=== PATIENT | male | born 1940 | race Caucasian/White ===

== ENCOUNTER 2021-11-16 10:11 | Inpatient (IN) ==
[2021-11-16] MEDS ORDERED: SODIUM CHLORIDE 0.9% 1000ML 1,000 ML IV ONE ×3 (10:29→12:36)
[2021-11-16] MEDS ORDERED: CEFEPIME 2,000 MG/20 ML VIAL IV STA (10:29)
[2021-11-16] MEDS ORDERED: SODIUM CHLORIDE 0.9% 500 ML IV ONE (10:29)
[2021-11-16] MEDS ORDERED: ACETAMINOPHEN 500 MG TAB PO STA (10:30)
--- NOTE | 2021-11-16 10:31 | Emergency Department Note ---
Impression & Plan Septic shock, Elevated LFTs, Acute renal failure, Pancytopenia, Atrial fibrillation with rapid ventricular response ED Provider Note Name: GAY BALDWIN Age: 81 Sex: M Arrives Via: Walk-In Informant: Patient and daughter ED Provider: Jose Newsome MD Chief Complaint: Weakness Impression: As per impressions above Medical Decision Making: Very pleasant 81-year-old gentleman with a history of radiation proctitis and previous UTIs arrives for evaluation of acute worsening weakness in the setting of increased urinary burning and frequency the last few days. Patient has been quite tired and his daughter this morning checked his blood pressure noting was in the 80s. Brought to the ER for further evaluation. On evaluation patient was hypotensive, tachycardic and febrile. He is in new onset A. fib with RVR and heart rate going up to the 160s with even sitting up. Patient is somewhat dehydrated appearing though otherwise his exam is actually really only remarkable for the tachycardia. He has no abdominal tenderness to palpation has clear lungs and has no evidence of meningitis. There is no evidence of cellulitis on examination. Given the high concern for sepsis and likely septic shock given the hypotension he immediately was ordered severe sepsis work-up including 2 IVs, 30 mL/kg IV fluid bolus and empiric cefepime for antibiotic coverage. Patient's blood pressure did respond quickly to the fluid resuscitation and at 12 PM following the fluid resuscitation initially his blood pressure looks good he feels much better and while his heart rate is still quite elevated at this A. fib RVR and I am not convinced that that is due to his sepsis is much his new onset A. fib RVR. Labs revealing acute renal insufficiency, pancytopenia and elevated LFTs. Interestingly though his urine is not significantly concerning for UTI. After discussing this with him a CT of the abdomen pelvis will be obtained without IV contrast. Due to patient's severe illness I do think it was reasonable to get medicine involved at this time and hospitalist was consulted for further management. Unfortunately just after discussing with hospitalist patient's blood pressure dropped precipitously and his heart rate went up significantly. On evaluation though he is not feeling that unwell. I feel he likely fluid resuscitated quite significantly though in the setting of acute hypotension further fluids were started while pressors obtained. Given the A. fib RVR I am somewhat worried that his A. fib is further causing issue with his hypotension. Thus after discussing with him and his daughter as well as making the hospitalist aware we will proceed with giving a dose of Lopressor to try and get his rate under control. At the same time I asked the critical care team to get involved as well. I will note the patient's blood pressure dropped a bit more after Lopressor and while fluids are started but responded pretty rapidly to his Levophed as it was titrated up. Blood pressure in the low 100s, heart rate around 100-110s in A. fib, and patient feeling vastly improved on repeat evaluation around 1:00. By this time patient is feeling much better and CT is revealing a stone in the common bile duct and no clear evidence of severe cholecystitis or other concerning findings. Critical care evaluated the patient did add on some tickborne illness labs which returned unremarkable. Patient's lactate did trend down some though not as much would be hoped for. He will be going to the ICU for further management Initial post 30/kg IV fluid evaluation was done at 12 PM by me. Patient does appear much better hydrated and his blood pressure has improved. However at 12:35pm patient blood pressure started to drop. Fluids, Levophed, Lopressor ordered for aggressive management in this quite complex patient. Hospitalist was further made aware and at this point critical care was made aware as well Prior Medical Record and Triage/Nursing Notes reviewed by Me Additional history obtained from chart and daughter Differentials:Infection, dehydration, metabolic abnormality, hypo/hyperglycemia, electrolyte disturbance, anemia, hypoxia, cardiac sources, intracerebral event, toxicologic, neurologic, as well as other pathologies. Vital Signs: reviewed and remarkable for no significant abnormalities Interventions: Normal saline bolus 2.5 L IV initially, cefepime 2 g IV, 1 L IV fluid bolus, Levophed drip, Lopressor 5 mg IV, Flagyl IV Labs:Reviewed and remarkable for acute renal insufficiency, lactic acidosis, pancytopenia Imagin view chest x-ray no acute findings as per radiology. CT of the abdomen pelvis questionable cholecystitis with a stone in the common bile duct as per radiology EKG:Per My Interpretation: Indication sepsis: Sinus tach at 126, right bundle branch block, no previous EKGs comparison. There is no ischemia. Cardiac/Tele Monitoring: Cardiac Monitoring: An Order was placed for continuous cardiac monitoring. The monitor shows a rate of 150 with a atrial fibrillation with RVR rhythm. Consults:Dr Martinez [facility] Hospitalist, Dr Pearce [facility] Plan: Disposition:Hospitalization. Condition: Critical History of Present Illness:81-year-old gentleman arrives for evaluation of weakness. Patient arrives with his daughter who is an RN and brought patient in to ER for evaluation. Patient with worsening weakness and fatigue over the last few days. He states he has no energy. He has had increased urinary burning and frequency. He has a history of prostate cancer and previous urinary tract infections. He notes urgency, frequency and minimal urination. Associated with fevers, chills, weakness. He took Tylenol last night with improvement of his fever. He states he is so weak he cannot sit up today. His daughter checked his blood pressure at home and it was in the 80s. He had no medications prior to arrival. Any exertion makes worse. Rest makes better. He had no falls, trauma, injuries. He denies any chest pain, shortness of breath, cough, runny nose, sore throat, congestion, headache, neck pain, back pain, abdominal pain, flank pain, leg swelling, rashes or any other signs or symptoms. He denies any antibiotic use since June. ROS: See above HPI for pertinent positives & negatives. A total of 10 systems reviewed and were otherwise negative. Past Medical History:Prostate Cancer, Recurrent UTI Past Surgical History:Prostate surgery Family History:See Below Social History:See Below Home Medications:See Below Allergies:merepridine Vitals:Blood Pressure: 82/53, Pulse 114, RR 18, T 38.3C, O2 97% on RA Physical Exam: GENERAL: Patient is ill appearing and in moderate distress. EYES: No scleral icterus, unremarkable pupils. ENT: Mucous membranes moist, no nasal congestion. NECK: No masses appreciated, nomeningismus, trachea is midline. RESPIRATORY: No dyspnea. Clear to auscultation and equal bilaterally. No wheeze, no rhonchi. CARDIOVASCULAR: Tachy/irregular.No murmurs, rubs, gallops appreciated. GASTROINTESTINAL: Abdomen soft, non-tender, no peritonitis.Bowel sounds positive.No masses appreciated. BACK: No midline tenderness, no CVA tenderness EXTREMITIES: Normal motion all extremities, no cyanosis, no edema. NEUROLOGIC: Alert and oriented, no acute motor or sensory deficits, no focal weakness, cranial nerves grossly intact. SKIN: No rash, no jaundice, no diaphoresis. PSYCH: Appropriate GCS: 15 ED Course: Times/Reassessments: Many repeat evaluations of patient throughout his stay in [facility] ER and active management and consultations throughout Critical Care: I have personally spent 85 minutes of critical care time in the direct management of this patient. Critically ill septic shock patient with new onset A. fib RVR and extensive resuscitation and management. This was a life/limb threatening event. This 85 minutes is in excess of all separately billable procedures. [Scribe Attestation] [Scribe Name] Jose Newsome MD Past Med/Surg History Medical History CAD (coronary artery disease) Calculus of ureter Dermatitis Dyslipidemia Glaucoma Bilateral Eyes Hypertension Ischemic heart disease Kidney disease Chronic Stage 3 Polymyalgia rheumatica Prostate CA Diagnosed 06/08/18 - Jeb 3+3, 3+4 Surgical History History of coronary artery bypass graft x 3 2013 History of kidney surgery 1994 - Ureteral Stone Surgery History of prostate biopsy 06/08/18 Status post repair of hydrocele Drainage as a youth Family History Mother , Passed age 87 of CVA Breast cancer, Onset Age: 50 Father , Passed age 64 of Lung Disease No problems noted. Brother No problems noted. Sister , Passed age 58 of breast cancer/head and neck cancer No problems noted. Sister No problems noted. Sister No problems noted. Daughter No problems noted. Social History Smoking Status: Never smoker Tobacco Type: Cigarettes Hx Alcohol Use: Yes Alcohol type: beer Alcohol Intake Frequency: 2-4 x/Month Hx Substance Use: No Preferred Language: German Communication Ability: Effective Visual Impairment: Limited Hearing Ability: Normal Ip/Mosaic Technician Required: No Beliefs That Will Affect Care: None marital status: Current Living Situation: Spouse current occupational status: retired current occupation: Retired [employer] Feels Safe at Home: Yes caffeine: Yes (2 cups of coffee/day ) during the past year weight has: remained stable Assistive Devices: Glasses Allergies Allergies Allergy/AdvReac Type Severity Reaction Status Date / Time meperidine AdvReac Mild PASS OUT Verified 06/16/21 09:57 Home Meds Home Medications Medication Instructions Recorded Confirmed bimatoprost 0.01 % eye drops 1 drops OP QPM 07/08/18 11/16/21 (Lumigan) lisinopril 10 mg tablet 10 mg PO PM 07/08/18 11/16/21 nitroglycerin 0.4 mg sublingual 0.4 mg SL Q5M PRN 07/08/18 11/16/21 tablet clobetasol 0.05 % topical cream 1 appln TOP BID PRN 04/19/19 11/16/21 docusate sodium 100 mg capsule 100 mg PO DAILY PRN 04/25/19 11/16/21 (Colace) famotidine 40 mg tablet (Pepcid) 40 mg PO QAM 11/15/20 11/16/21 ferrous sulfate 325 mg (65 mg 325 mg PO QAM 11/15/20 11/16/21 iron) tablet (FeroSul) turmeric root extract 500 mg 500 mg PO BID 11/15/20 11/16/21 capsule acetaminophen 500 mg tablet 1,000 mg PO Q6H PRN 06/16/21 11/16/21 (Tylenol Extra Strength) atorvastatin 40 mg tablet 40 mg PO PM 06/16/21 11/16/21 metoprolol tartrate 25 mg tablet 25 mg PO BID 06/16/21 11/16/21 silodosin 8 mg capsule 8 mg PO DAILY 11/16/21 11/16/21 Results & Data (ED) Vital Signs Vital Signs - 24 hr 11/16/21 10:15 11/16/21 11:01 11/16/21 11:30 Temperature 38.3 C H Temperature Source Oral Pulse Rate 114 H Pulse Rate [Right Finger] 124 H Pulse Rate from SpO2 Sensor Pulse Rhythm [Right Finger] Irregular Pulse Strength [Right Finger] Normal Respiratory Rate 18 19 Respiratory Effort / Characteristics Non-Labored Spontaneous Non-Labored Spontaneous Respiratory Depth Normal Normal Respiratory Pattern Regular Regular Blood Pressure 82/53 L 96/66 L Blood Pressure [Right Arm] 100/62 Blood Pressure Mean 62 76 Blood Pressure Mean [Right Arm] 74 Blood Pressure Position Sitting Blood Pressure Position [Right Arm] Lying Pulse Oximetry 97 98 Oxygen Delivery Method Room Air Room Air Sepsis Recent Fever Within 48 Hours Yes Sepsis New/Unexplained Change in Mental Status No Sepsis Action Taken by Nursing Physician Notified 11/16/21 11:40 11/16/21 11:50 11/16/21 12:00 Temperature Temperature Source Pulse Rate 128 H 141 H 180 H Pulse Rate [Right Finger] Pulse Rate from SpO2 Sensor Pulse Rhythm [Right Finger] Pulse Strength [Right Finger] Respiratory Rate 27 H 23 30 H Respiratory Effort / Characteristics Respiratory Depth Respiratory Pattern Blood Pressure 115/65 Blood Pressure [Right Arm] Blood Pressure Mean 81 Blood Pressure Mean [Right Arm] Blood Pressure Position Blood Pressure Position [Right Arm] Pulse Oximetry Oxygen Delivery Method Sepsis Recent Fever Within 48 Hours Sepsis New/Unexplained Change in Mental Status Sepsis Action Taken by Nursing 11/16/21 12:04 11/16/21 12:25 11/16/21 12:28 Temperature Temperature Source Pulse Rate 156 H 147 H Pulse Rate [Right Finger] 142 H Pulse Rate from SpO2 Sensor 127 H Pulse Rhythm [Right Finger] Pulse Strength [Right Finger] Normal Respiratory Rate 19 23 29 H Respiratory Effort / Characteristics Non-Labored Spontaneous Respiratory Depth Normal Respiratory Pattern Blood Pressure 84/59 L 84/43 L Blood Pressure [Right Arm] 115/65 Blood Pressure Mean 56 Blood Pressure Mean [Right Arm] 81 Blood Pressure Position Blood Pressure Position [Right Arm] Lying Pulse Oximetry 98 94 Oxygen Delivery Method Room Air Sepsis Recent Fever Within 48 Hours Sepsis New/Unexplained Change in Mental Status Sepsis Action Taken by Nursing 11/16/21 12:30 11/16/21 12:32 11/16/21 12:40 Temperature Temperature Source Pulse Rate 128 H 126 H 110 H Pulse Rate [Right Finger] Pulse Rate from SpO2 Sensor 96 H 123 H Pulse Rhythm [Right Finger] Pulse Strength [Right Finger] Respiratory Rate 28 H 26 H 28 H Respiratory Effort / Characteristics Respiratory Depth Respiratory Pattern Blood Pressure 79/42 L 77/50 L Blood Pressure [Right Arm] Blood Pressure Mean 54 59 Blood Pressure Mean [Right Arm] Blood Pressure Position Blood Pressure Position [Right Arm] Pulse Oximetry 95 92 Oxygen Delivery Method Sepsis Recent Fever Within 48 Hours Sepsis New/Unexplained Change in Mental Status Sepsis Action Taken by Nursing 11/16/21 12:42 11/16/21 12:45 11/16/21 12:46 Temperature Temperature Source Pulse Rate 126 H 110 H Pulse Rate [Right Finger] 118 H Pulse Rate from SpO2 Sensor 105 H 90 Pulse Rhythm [Right Finger] Irregular Pulse Strength [Right Finger] Normal Respiratory Rate 28 H 28 H 21 Respiratory Effort / Characteristics Non-Labored Spontaneous Respiratory Depth Normal Respiratory Pattern Regular Blood Pressure 60/43 L 68/35 L Blood Pressure [Right Arm] 131/66 Blood Pressure Mean 48 46 Blood Pressure Mean [Right Arm] 87 Blood Pressure Position Blood Pressure Position [Right Arm] Lying Pulse Oximetry 93 93 96 Oxygen Delivery Method Room Air Sepsis Recent Fever Within 48 Hours Sepsis New/Unexplained Change in Mental Status Sepsis Action Taken by Nursing 11/16/21 12:50 11/16/21 12:56 11/16/21 13:00 Temperature Temperature Source Pulse Rate 113 H 104 H 116 H Pulse Rate [Right Finger] Pulse Rate from SpO2 Sensor 128 H 100 H 130 H Pulse Rhythm [Right Finger] Pulse Strength [Right Finger] Respiratory Rate 25 H 22 17 Respiratory Effort / Characteristics Respiratory Depth Respiratory Pattern Blood Pressure 91/72 L 101/74 Blood Pressure [Right Arm] Blood Pressure Mean 78 83 Blood Pressure Mean [Right Arm] Blood Pressure Position Blood Pressure Position [Right Arm] Pulse Oximetry 97 96 96 Oxygen Delivery Method Sepsis Recent Fever Within 48 Hours Sepsis New/Unexplained Change in Mental Status Sepsis Action Taken by Nursing 11/16/21 13:02 11/16/21 13:05 Temperature Temperature Source Pulse Rate 118 H Pulse Rate [Right Finger] 113 H Pulse Rate from SpO2 Sensor 124 H Pulse Rhythm [Right Finger] Pulse Strength [Right Finger] Respiratory Rate 20 17 Respiratory Effort / Characteristics Respiratory Depth Respiratory Pattern Blood Pressure 103/60 Blood Pressure [Right Arm] 98/63 L Blood Pressure Mean 74 Blood Pressure Mean [Right Arm] 74 Blood Pressure Position Blood Pressure Position [Right Arm] Pulse Oximetry 96 96 Oxygen Delivery Method Room Air Sepsis Recent Fever Within 48 Hours Sepsis New/Unexplained Change in Mental Status Sepsis Action Taken by Nursing Laboratory Data Result diagrams: 11/16/21 10:40 11/16/21 18:22 Lab Results 11/16/21 11/16/21 11/16/21 Range/Units 10:35 10:40 10:40 WBC 2.73 L (4.8-10.8) K/uL RBC 3.68 L (4.7-6.1) M/uL Hgb 11.2 L (14.0-18.0) g/dL Hct 32.7 L (42-52) % MCV 88.9 (80-100) fL MCH 30.4 (25-34) pg MCHC 34.3 (32-36) g/dL RDW Std Deviation 45.3 (36.4-46.3) fL RDW Coeff of Miquel 13.7 (11.5-14.5) % Plt Count 83 L (130-400) K/uL MPV 12.0 H (7.4-10.4) fL Immature Gran % (Auto) 0.4 % Neut % (Auto) 79.1 % Lymph % (Auto) 17.2 % [place] % (Auto) 2.9 % Eos % (Auto) 0.0 % Baso % (Auto) 0.4 % Neut # (Auto) 2.16 (1.4-6.5) K/uL Lymph # (Auto) 0.47 L (1.2-3.4) K/uL [place] # (Auto) 0.08 L (0.11-0.59) K/uL Eos # (Auto) 0.00 (0-0.5) K/uL Baso # (Auto) 0.01 (0-0.2) K/uL Immature Gran # (Auto) 0.01 (0.00-0.02) K/uL Platelet Estimate Decreased L (Normal) PT (9.0-12.0) Seconds INR (0.9-1.1) Sodium (136-145) mmol/L Potassium (3.5-5.1) mmol/L Chloride (98-107) mmol/L Carbon Dioxide (21-32) mmol/L Anion Gap (3-11) BUN (6-23) mg/dl Creatinine (0.6-1.4) mg/dl Est Cr Clr Drug Dosing ml/min Est GFR ( Amer) ml/min Est GFR (Non-Af Amer) ml/min BUN/Creatinine Ratio (10-20) Glucose (70-99(Fasting)) mg/dl Lactate 2.5 H* (0.4-2.0) mmol/L Calcium (8.5-10.1) mg/dl Magnesium (1.7-2.4) mg/dl Total Bilirubin (0.2-1.0) mg/dl Direct Bilirubin (0-0.2) mg/dl AST (13-39) U/L ALT (7-52) U/L Alkaline Phosphatase (34-104) U/L Troponin I High Sens (0-20) pg/ml Total Protein (6.0-8.3) gm/dl Albumin (3.4-5.0) gm/dl Lipase (11-82) U/L Procalcitonin (0-0.5) ng/ml Urine Color Dark Yellow Urine Appearance Cloudy A (Clear) Urine pH 5.0 (4.5-7.5) Ur Specific [place] 1.017 (1.000-1.030) Urine Protein 1+ H (Negative) Urine Glucose (UA) Negative (Negative) Urine Ketones Trace H (Negative) Urine Blood Negative (Negative) Urine Nitrite Negative (Negative) Urine Bilirubin Negative (Negative) Urine Urobilinogen Negative (Negative) Ur Leukocyte Esterase Negative (Negative) Urine WBC (Auto) 1-5 (0-5) /hpf Urine RBC (Auto) 0-4 (0-4) /hpf U Hyaline Cast (Auto) 1-5 (0-5) /lpf U Epithel Cells (Auto) 5-10 H (0-5) /lpf Urine Bacteria (Auto) Negative (Negative) Amorphous Sediment Present A (None Prsent) Urine Yeast Not Reportable Anaplasma Smear See Comment Babesia Smear See Comment Lyme Disease IgG Ab (Negative) Lyme Disease IgM Ab (Negative) SARS-CoV-2, RNA, NAAT (NEGATIVE) 11/16/21 11/16/21 11/16/21 Range/Units 10:40 10:40 10:40 WBC (4.8-10.8) K/uL RBC (4.7-6.1) M/uL Hgb (14.0-18.0) g/dL Hct (42-52) % MCV (80-100) fL MCH (25-34) pg MCHC (32-36) g/dL RDW Std Deviation (36.4-46.3) fL RDW Coeff of Miquel (11.5-14.5) % Plt Count (130-400) K/uL MPV (7.4-10.4) fL Immature Gran % (Auto) % Neut % (Auto) % Lymph % (Auto) % [place] % (Auto) % Eos % (Auto) % Baso % (Auto) % Neut # (Auto) (1.4-6.5) K/uL Lymph # (Auto) (1.2-3.4) K/uL [place] # (Auto) (0.11-0.59) K/uL Eos # (Auto) (0-0.5) K/uL Baso # (Auto) (0-0.2) K/uL Immature Gran # (Auto) (0.00-0.02) K/uL Platelet Estimate (Normal) PT 11.2 (9.0-12.0) Seconds INR 1.1 (0.9-1.1) Sodium 127 L (136-145) mmol/L Potassium 3.8 (3.5-5.1) mmol/L Chloride 96 L (98-107) mmol/L Carbon Dioxide 19 L (21-32) mmol/L Anion Gap 12 H (3-11) BUN 58 H (6-23) mg/dl Creatinine 3.62 H (0.6-1.4) mg/dl Est Cr Clr Drug Dosing 16.5 ml/min Est GFR ( Amer) 17.4 ml/min Est GFR (Non-Af Amer) 15.0 ml/min BUN/Creatinine Ratio 16.0 (10-20) Glucose 169 H (70-99(Fasting)) mg/dl Lactate (0.4-2.0) mmol/L Calcium 8.9 (8.5-10.1) mg/dl Magnesium 2.0 (1.7-2.4) mg/dl Total Bilirubin 1.4 H (0.2-1.0) mg/dl Direct Bilirubin 0.5 H (0-0.2) mg/dl AST 132 H (13-39) U/L ALT 75 H (7-52) U/L Alkaline Phosphatase 73 (34-104) U/L Troponin I High Sens 31.2 H (0-20) pg/ml Total Protein 7.1 (6.0-8.3) gm/dl Albumin 4.1 (3.4-5.0) gm/dl Lipase 145 H (11-82) U/L Procalcitonin 2.36 H (0-0.5) ng/ml Urine Color Urine Appearance (Clear) Urine pH (4.5-7.5) Ur Specific [place] (1.000-1.030) Urine Protein (Negative) Urine Glucose (UA) (Negative) Urine Ketones (Negative) Urine Blood (Negative) Urine Nitrite (Negative) Urine Bilirubin (Negative) Urine Urobilinogen (Negative) Ur Leukocyte Esterase (Negative) Urine WBC (Auto) (0-5) /hpf Urine RBC (Auto) (0-4) /hpf U Hyaline Cast (Auto) (0-5) /lpf U Epithel Cells (Auto) (0-5) /lpf Urine Bacteria (Auto) (Negative) Amorphous Sediment (None Prsent) Urine Yeast Anaplasma Smear Babesia Smear Lyme Disease IgG Ab (Negative) Lyme Disease IgM Ab (Negative) SARS-CoV-2, RNA, NAAT (NEGATIVE) 11/16/21 11/16/21 11/16/21 Range/Units 10:40 10:45 12:41 WBC (4.8-10.8) K/uL RBC (4.7-6.1) M/uL Hgb (14.0-18.0) g/dL Hct (42-52) % MCV (80-100) fL MCH (25-34) pg MCHC (32-36) g/dL RDW Std Deviation (36.4-46.3) fL RDW Coeff of Miquel (11.5-14.5) % Plt Count (130-400) K/uL MPV (7.4-10.4) fL Immature Gran % (Auto) % Neut % (Auto) % Lymph % (Auto) % [place] % (Auto) % Eos % (Auto) % Baso % (Auto) % Neut # (Auto) (1.4-6.5) K/uL Lymph # (Auto) (1.2-3.4) K/uL [place] # (Auto) (0.11-0.59) K/uL Eos # (Auto) (0-0.5) K/uL Baso # (Auto) (0-0.2) K/uL Immature Gran # (Auto) (0.00-0.02) K/uL Platelet Estimate (Normal) PT (9.0-12.0) Seconds INR (0.9-1.1) Sodium (136-145) mmol/L Potassium (3.5-5.1) mmol/L Chloride (98-107) mmol/L Carbon Dioxide (21-32) mmol/L Anion Gap (3-11) BUN (6-23) mg/dl Creatinine (0.6-1.4) mg/dl Est Cr Clr Drug Dosing ml/min Est GFR ( Amer) ml/min Est GFR (Non-Af Amer) ml/min BUN/Creatinine Ratio (10-20) Glucose (70-99(Fasting)) mg/dl Lactate 2.1 H* (0.4-2.0) mmol/L Calcium (8.5-10.1) mg/dl Magnesium (1.7-2.4) mg/dl Total Bilirubin (0.2-1.0) mg/dl Direct Bilirubin (0-0.2) mg/dl AST (13-39) U/L ALT (7-52) U/L Alkaline Phosphatase (34-104) U/L Troponin I High Sens (0-20) pg/ml Total Protein (6.0-8.3) gm/dl Albumin (3.4-5.0) gm/dl Lipase (11-82) U/L Procalcitonin (0-0.5) ng/ml Urine Color Urine Appearance (Clear) Urine pH (4.5-7.5) Ur Specific [place] (1.000-1.030) Urine Protein (Negative) Urine Glucose (UA) (Negative) Urine Ketones (Negative) Urine Blood (Negative) Urine Nitrite (Negative) Urine Bilirubin (Negative) Urine Urobilinogen (Negative) Ur Leukocyte Esterase (Negative) Urine WBC (Auto) (0-5) /hpf Urine RBC (Auto) (0-4) /hpf U Hyaline Cast (Auto) (0-5) /lpf U Epithel Cells (Auto) (0-5) /lpf Urine Bacteria (Auto) (Negative) Amorphous Sediment (None Prsent) Urine Yeast Anaplasma Smear Babesia Smear Lyme Disease IgG Ab Negative (Negative) Lyme Disease IgM Ab Negative (Negative) SARS-CoV-2, RNA, NAAT NEGATIVE (NEGATIVE) Administered Medications Discontinued Medications Acetaminophen (Acetaminophen 500 Mg Tab) 1,000 mg PO NOW STA Stop: 11/16/21 10:31 Last Admin: 11/16/21 11:26 Dose: 1,000 mg Documented by: [id number] Sodium Chloride (Nss 1000ml) 1,000 mls @ 999 mls/hr IV .Q1H1M ONE Stop: 11/16/21 11:29 Last Infusion: 11/16/21 12:03 Dose: 0 mls/hr Documented by: [id number] Admin: 11/16/21 10:49 Dose: 999 mls/hr Documented by: [id number] Sodium Chloride (Nss 1000ml) 1,000 mls @ 999 mls/hr IV .Q1H1M ONE Stop: 11/16/21 11:29 Last Infusion: 11/16/21 12:00 Dose: 0 mls/hr Documented by: [id number] Admin: 11/16/21 10:49 Dose: 999 mls/hr Documented by: [id number] Sodium Chloride (Nss) 500 mls @ 999 mls/hr IV .Q31M ONE Stop: 11/16/21 10:59 Last Infusion: 11/16/21 12:03 Dose: 0 mls/hr Documented by: [id number] Admin: 11/16/21 11:26 Dose: 999 mls/hr Documented by: [id number] Cefepime HCl (Maxipime) 2,000 mg in 20 mls @ 5 mls/min IV NOW STA; Protocol Stop: 11/16/21 10:32 Last Admin: 11/16/21 10:50 Dose: 5 mls/min Documented by: [id number] Norepinephrine Bitartrate (Levophed/D5w) 4 mg in 250 mls @ 14.644 mls/hr IV .Q17H5M [facility]; Protocol Stop: 12/16/21 12:44 Last Titration: 11/16/21 16:44 Dose: 0 mcg/kg/min, 0 mls/hr Documented by: [id number] Titration: 11/16/21 16:23 Dose: 0.18 mcg/kg/min, 52.7 mls/hr Documented by: [id number] Titration: 11/16/21 12:45 Dose: 0.2 mcg/kg/min, 58.6 mls/hr Documented by: [id number] Admin: 11/16/21 12:40 Dose: 0.05 mcg/kg/min, 14.6 mls/hr Documented by: [id number] Cosigned by: [id number] Sodium Chloride (Nss 1000ml) 1,000 mls @ 999 mls/hr IV .Q1H1M ONE Stop: 11/16/21 13:36 Last Infusion: 11/16/21 13:25 Dose: 0 mls/hr Documented by: [id number] Admin: 11/16/21 12:39 Dose: 999 mls/hr Documented by: [id number] Vancomycin HCl 1,500 mg/ (Sodium Chloride) 530 mls @ 200 mls/hr IV NOW ONE Stop: 11/16/21 15:53 Last Infusion: 11/16/21 17:16 Dose: 0 mls/hr Documented by: [id number] Admin: 11/16/21 13:56 Dose: 200 mls/hr Documented by: [id number] Doxycycline Hyclate 100 mg/ (Dextrose) 110 mls @ 50 mls/hr IV NOW STA Stop: 11/16/21 15:18 Last Infusion: 11/16/21 16:23 Dose: 0 mls/hr Documented by: [id number] Admin: 11/16/21 13:52 Dose: 50 mls/hr Documented by: [id number] Metronidazole (Flagyl) 500 mg in 100 mls @ 100 mls/hr IV NOW STA Stop: 11/16/21 14:20 Last Infusion: 11/16/21 15:10 Dose: 0 mls/hr Documented by: [id number] Admin: 11/16/21 14:14 Dose: 100 mls/hr Documented by: [id number] Phenylephrine HCl 20 mg/ (Dextrose) 502 mls @ 58.809 mls/hr IV .[id number] [facility]; Protocol Stop: 12/16/21 14:45 Last Infusion: 11/16/21 17:14 Dose: 0.3 mcg/kg/min, 35.3 mls/hr Documented by: [id number] Admin: 11/16/21 16:40 Dose: 0.5 mcg/kg/min, 58.8 mls/hr Documented by: [id number] Cosigned by: [id number] Thiamine HCl 200 mg/ Sodium (Chloride) 52 mls @ 208 mls/hr IV NOW STA Stop: 11/16/21 17:31 Last Infusion: 11/16/21 19:06 Dose: 0 mls/hr Documented by: [id number] Admin: 11/16/21 18:22 Dose: 208 mls/hr Documented by: [id number] Metoprolol Tartrate (Metoprolol Tartrate 1 Mg/Ml Vial) 5 mg IV NOW STA Stop: 11/16/21 12:08 Last Admin: 11/16/21 12:25 Dose: 5 mg Documented by: [id number] Norepinephrine Bitartrate (Norepinephrine/D5w 4 Mg/250 Ml) Confirm Administered Dose 4 mg IV .[employer] ONE Stop: 11/16/21 15:31 Last Admin: 11/16/21 16:44 Dose: Not Given Documented by: [id number] Imaging Data Radiologist's Impression: Chest X-Ray 11/16/21 10:30 SINGLE VIEW CHEST CLINICAL HISTORY: Sepsis. FINDINGS: An AP, portable, upright chest radiograph is correlated with chest CT dated 03/18/2019. The patient is status post midline sternotomy. The heart is enlarged noting atherosclerotic calcification of the thoracic aorta. The pulmonary vasculature is noncongested. There is mild elevation of the left hemidiaphragm. The lungs and pleural spaces are clear. No pneumothorax is seen. The skeletal structures are osteopenic. The bony thorax is grossly intact. IMPRESSION: Cardiomegaly with no active disease in the chest. ACT 112: Negative or not required by law. Electronically signed by: Anshul Calloway M.D. 11/16/2021 11:06 AM Abdomen/Pelvis CT 11/16/21 11:36 CT abd pelvis wo con CLINICAL HISTORY: sepsis, hypotension, renal failure TECHNIQUE: Helical axial images of the abdomen and pelvis were obtained. Automated dose lowering techniques and/or adjustment according to patient size were utilized for this exam. This exam was performed without intravenous contrast. CT DOSE: 687.28 mGycm COMPARISON: Comparison is made to CT abdomen pelvis radiation therapy 02/23/2019 FINDINGS: Exam is limited by patient motion. Lower chest: No acute abnormality Liver: Unremarkable. No focal lesions are seen. Gallbladder and biliary tree: Layering stones are seen in the gallbladder and duct. Gallbladder wall is seen to measure up to 4 mm. No intra- or extrahepatic biliary ductal dilation. Pancreas: Unremarkable, no focal lesions. Spleen: Unremarkable. Adrenals: Unremarkable. Kidneys and ureters: Unremarkable. Bladder: Bladder wall thickening and diverticula are seen. Reproductive organs: Prostatic calcifications are seen which may represent prior hemorrhage or granulomatous disease. Bowel: Unremarkable. Lymph nodes Retroperitoneal: Unremarkable. Mesenteric: Unremarkable. Pelvic: Unremarkable. Peritoneum: Normal. Vessels: Atherosclerotic calcifications are seen. Abdominal wall: Left fat containing inguinal hernia. Bones: Degenerative changes in the visualized spine. Loss of height of T11 is again noted. Focal sclerosis in the left neck may represent posttreatment change. IMPRESSION: Layering gallstones including stones in the cystic duct. There is mild gallbladder wall thickening. If there is clinical concern for cholecystitis, ultrasound or HIDA scan can be performed. ACT 112: Negative or not required by law. Electronically signed by: Derrell Choi M.D. 11/16/2021 12:45 PM Discharge Plan Visit Data Chief Complaint: Illness Stated Complaint: DIZZINESS, WEAKNESS, SUSPECTED UTI ED Provider: Jose Newsome Discharge Problem: Septic shock, Elevated LFTs, Acute renal failure, Pancytopenia, Atrial fibrillation with rapid ventricular response Patient Disposition: Admitted As Inpatient Discharge Instructions Interventions: ED Discharge Assessment Last Done: 11/16/21 15:20 Discharge Problem: Acute renal failure Qualifiers: Acute renal failure type: unspecified Qualified Code(s): N17.9 - Acute kidney failure, unspecified
--- NOTE | 2021-11-16 11:08 | XRay Report ---
SINGLE VIEW CHEST CLINICAL HISTORY: Sepsis. FINDINGS: An AP, portable, upright chest radiograph is correlated with chest CT dated 03/18/2019. The patient is status post midline sternotomy. The heart is enlarged noting atherosclerotic calcificatio n of the thoracic aorta. The pulmonary vasculature is noncongested. There is mild elevation of the le ft hemidiaphragm. The lungs and pleural spaces are clear. No pneumothorax is seen. The skeletal struc tures are osteopenic. The bony thorax is grossly intact. IMPRESSION: Cardiomegaly with no active disease in the chest. ACT 112: Negative or not required by law. Electronically signed by: Anshul Calloway M.D. 11/16/2021 11:06 AM
[2021-11-16 11:28] LABS: Albumin Level 4.1 gm/dl (3.4-5.0); Bilirubin Direct 0.5 mg/dl (0-0.2); Bilirubin,Total 1.4 mg/dl (0.2-1.0); Calcium 8.9 mg/dl (8.5-10.1); Creatinine Clr Calc Pharmacy 16.5 ml/min; Est GFR (African American) 17.4 ml/min; INR 1.1 (0.9-1.1); Potassium 3.8 mmol/L (3.5-5.1); Prothrombin Time 11.2 Seconds (9.0-12.0); Total Protein 7.1 gm/dl (6.0-8.3)
[2021-11-16 11:29] LABS: Appearance Urine Cloudy (Clear); Bilirubin Urine Negative (Negative); Blood Urine Negative (Negative); Color Urine Dark Yellow; Glucose Urine UA Negative (Negative); Ketones Urine Trace (Negative); Nitrite Urine Negative (Negative); Protein Urine 1+ (Negative); Specific Gravity Urine 1.017 (1.000-1.030); Urobilinogen Urine Negative (Negative)
[2021-11-16 11:30] LABS: Bacteria Urine Automated Negative (Negative); Leukocyte Esterase Urine Negative (Negative); RBC Urine Automated 0-4 /hpf (0-4)
[2021-11-16 11:31] LABS: Troponin I High Sensitivity 31.2 pg/ml (0-20)
[2021-11-16 11:46] LABS: Amorphous Sediment Urine Present (None Prsent)
[2021-11-16 11:46] LABS: Hematocrit (blood only) 32.7 % (42-52); Hemoglobin 11.2 g/dL (14.0-18.0); Mean Corpuscular Hemoglobin 30.4 pg (25-34); Mean Corpuscular Hgb Conc 34.3 g/dL (32-36); Mean Corpuscular Volume 88.9 fL (80-100); Platelet Count 83 K/uL (130-400); RDW Coefficient of Variation 13.7 % (11.5-14.5); RDW Standard Deviation 45.3 fL (36.4-46.3); Red Blood Count 3.68 M/uL (4.7-6.1); White Blood Count 2.73 K/uL (4.8-10.8)
[2021-11-16 11:56] LABS: Basophils # (auto) 0.01 K/uL (0-0.2); Basophils % (auto) 0.4 %; Immature Granulocytes # (auto) 0.01 K/uL (0.00-0.02); Immature Granulocytes % (auto) 0.4 %; Lymphocytes # (auto) 0.47 K/uL (1.2-3.4); Lymphocytes % (auto) 17.2 %; Monocytes # (auto) 0.08 K/uL (0.11-0.59); Monocytes % (auto) 2.9 %; Neutrophils # (auto) 2.16 K/uL (1.4-6.5); Neutrophils % (auto) 79.1 %; Platelet Estimate Decreased (Normal)
[2021-11-16] MEDS ORDERED: METOPROLOL TARTRATE 1 MG/ML VIAL IV STA (12:07)
[2021-11-16] MEDS ORDERED: Standard Conc 16mcg/mL; 4mg in 250mL IV SCH (12:45)
[2021-11-16] MEDS ORDERED: VANCOMYCIN CONSULT ACTIVE PRN (12:46)
--- NOTE | 2021-11-16 12:47 | CT Scan Report ---
CT abd pelvis wo con CLINICAL HISTORY: sepsis, hypotension, renal failure TECHNIQUE: Helical axial images of the abdomen and pelvis were obtained. Automated dose lowering tech niques and/or adjustment according to patient size were utilized for this exam. This exam was perfor med without intravenous contrast. CT DOSE: 687.28 mGycm COMPARISON: Comparison is made to CT abdomen pelvis radiation therapy 02/23/2019 FINDINGS: Exam is limited by patient motion. Lower chest: No acute abnormality Liver: Unremarkable. No focal lesions are seen. Gallbladder and biliary tree: Layering stones are seen in the gallbladder and duct. Gallbladder wall is seen to measure up to 4 mm. No intra- or extrahepatic biliary ductal dilation. Pancreas: Unremarkable, no focal lesions. Spleen: Unremarkable. Adrenals: Unremarkable. Kidneys and ureters: Unremarkable. Bladder: Bladder wall thickening and diverticula are seen. Reproductive organs: Prostatic calcifications are seen which may represent prior hemorrhage or granul omatous disease. Bowel: Unremarkable. Lymph nodes Retroperitoneal: Unremarkable. Mesenteric: Unremarkable. Pelvic: Unremarkable. Peritoneum: Normal. Vessels: Atherosclerotic calcifications are seen. Abdominal wall: Left fat containing inguinal hernia. Bones: Degenerative changes in the visualized spine. Loss of height of T11 is again noted. Focal scle rosis in the left neck may represent posttreatment change. IMPRESSION: Layering gallstones including stones in the cystic duct. There is mild gallbladder wall thickening. I f there is clinical concern for cholecystitis, ultrasound or HIDA scan can be performed. ACT 112: Negative or not required by law. Electronically signed by: Derrell Choi M.D. 11/16/2021 12:45 PM
--- NOTE | 2021-11-16 13:06 | History & Physical Report ---
Date of Service November 16, 2021 Assessment & Plan (1) Sepsis: Plan: Patient is 81 y/o M with PMH HTN, prostate CA, CAD s/p CABG, HTN, dyslipidemia, CKD III presented to ER with c/o fatigue x several days. Couple of loose stools, nausea yesterday. Denies CP, SOB, abdominal pain. C/O dysuria and urinary frequency past couple of days. In ER patient febrile 38.3C, tachycardic, hypotensive. WBC: 2.7 (baseline in 5s), thrombocytopenia, elevated LFTs, lactate: 2.5, procalcitonin: 2.3, UA without leukocytes, nitrites or bacteria. Negative SARS-CoV-2 NAAT test CXR: no active disease in the chest. CT ABD/PELVIS: Layering gallstones including stones in the cystic duct. There is mild gallbladder wall thickening. In ER resuscitated with IVF with continued hypotension. Started on Levophed. 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 Anaplasma versus choledocholithiasis Work-up as above (2) MERNA (acute kidney injury): Plan: Cr: 3.1. Baseline ~1.6 Monitor renal functions, avoid nephrotoxic agents when possible (3) Atrial fibrillation with RVR: Plan: Found to be in atrial fibrillation RVR in ER given initial dose of Lopressor Patient missed morning metoprolol tartrate Continue oral metoprolol tartrate Echo Initial troponin: 31. Trend troponin [id number]: 3. Patient with history rectal bleeding after prostate radiation in past. Cardiology consult. Would appreciate recommendations on anticoagulation Hyponatremia Na: 127 Serum osmolality, urine osmolality, urine sodium pending HTN Hold home lisinopril as currently hypotensive CAD S/p CABG in 2013 Prostate CA S/p radiation, previous hormone therapy Hold home silodosin for now DVT Prophylaxis Heparin SQ Full Code as per discussion with pt Follows with Dr Bhaskar Day for routine care Pt was seen and care coordinated with Dr Martinez. See addendum History of Present Illness Chief Complaint: Lethargy Primary Care Provider: Bhaskar Day DO Patient is 81 y/o M with PMH HTN, prostate CA, CAD s/p CABG, HTN, dyslipidemia, CKD III presented to ER with c/o fatigue. Past 3 days with increased fatigue and reports feels a little SOB. Has dry cough for awhile, no worsening. Past 3 days with dysuria, urinary frequency. Denies known fever or chills. Denies known tick bite. While in ER nausea, no vomiting. Loose stools on Friday, . No melena, hematochezia. History rectal bleeding after prostate radiation treatment. Reports this was approximately 3 years ago. Denies ill contacts, diaphoresis, recent melena, hematochezia, GORDON, dizziness, syncope, vision changes, neck pain, CP, orthopnea, palpitations, hemoptysis, sore throat, choking, otalgia, rhinorrhea, abdominal pain, paresthesias, weakness, extremity weakness, extremity edema, rashes, hematuria In ER patient febrile 38.3C, tachycardic, hypotensive. WBC: 2.7 (baseline in 5s), thrombocytopenia, elevated LFTs, lactate: 2.5, procalcitonin: 2.3, UA without leukocytes, nitrites or bacteria In ER resuscitated with IVF with continued hypotension. Was found to be in A. fib RVR. Given dose IV Lopressor and started on Levophed. Patient given cefepime. Patient admitted to ICU Allergies Allergy/AdvReac Type Severity Reaction Status Date / Time meperidine AdvReac Mild PASS OUT Verified 06/16/21 09:57 Home Medications Medication Instructions Recorded Confirmed Type bimatoprost 0.01 % eye drops 1 drops OP QPM 07/08/18 11/16/21 History (Nabil) lisinopril 10 mg tablet 10 mg PO PM 07/08/18 11/16/21 History nitroglycerin 0.4 mg sublingual 0.4 mg SL Q5M PRN 07/08/18 11/16/21 History tablet clobetasol 0.05 % topical cream 1 appln TOP BID PRN 04/19/19 11/16/21 History docusate sodium 100 mg capsule 100 mg PO DAILY PRN 04/25/19 11/16/21 History (Colace) famotidine 40 mg tablet (Pepcid) 40 mg PO QAM 11/15/20 11/16/21 History ferrous sulfate 325 mg (65 mg 325 mg PO QAM 11/15/20 11/16/21 History iron) tablet (FeroSul) turmeric root extract 500 mg 500 mg PO BID 11/15/20 11/16/21 History capsule acetaminophen 500 mg tablet 1,000 mg PO Q6H PRN 06/16/21 11/16/21 History (Tylenol Extra Strength) atorvastatin 40 mg tablet 40 mg PO PM 06/16/21 11/16/21 History metoprolol tartrate 25 mg tablet 25 mg PO BID 06/16/21 11/16/21 History silodosin 8 mg capsule 8 mg PO DAILY 11/16/21 11/16/21 History Past Med/Surg History Medical History CAD (coronary artery disease) Calculus of ureter Dermatitis Dyslipidemia Glaucoma Bilateral Eyes Hypertension Ischemic heart disease Kidney disease Chronic Stage 3 Polymyalgia rheumatica Prostate CA Diagnosed 06/08/18 - Jeb 3+3, 3+4 Surgical History History of coronary artery bypass graft x 3 2013 History of kidney surgery 1994 - Ureteral Stone Surgery History of prostate biopsy 06/08/18 Status post repair of hydrocele Drainage as a youth Family History Mother , Passed age 87 of CVA Breast cancer, Onset Age: 50 Father , Passed age 64 of Lung Disease No problems noted. Brother No problems noted. Sister , Passed age 58 of breast cancer/head and neck cancer No problems noted. Sister No problems noted. Sister No problems noted. Daughter No problems noted. Social History Smoking Status: Never smoker Tobacco Type: Cigarettes Hx Alcohol Use: Yes Alcohol type: beer Alcohol Intake Frequency: 2-4 x/Month Hx Substance Use: No Preferred Language: Bruneian Communication Ability: Effective Visual Impairment: Limited Hearing Ability: Normal Hydrologic Modeler Required: No Beliefs That Will Affect Care: None marital status: Current Living Situation: Spouse current occupational status: retired current occupation: Retired [employer] Feels Safe at Home: Yes caffeine: Yes (2 cups of coffee/day ) during the past year weight has: remained stable Assistive Devices: Glasses Review of Systems Review of Systems: All systems reviewed & are unremarkable except as noted in HPI & below Physical Exam Physical Exam: PE per Dr Martinez Results & Data Results & Data ([facility]) Vital Signs (Past 12 Hours) Vital Signs Temp Pulse Pulse Resp BP BP Pulse Ox 11/16/21 13:02 113 H 20 98/63 L 96 11/16/21 12:25 165 H 84/59 L 11/16/21 12:04 142 H 19 115/65 98 11/16/21 11:01 124 H 19 100/62 98 11/16/21 10:15 38.3 C H 114 H 18 82/53 L 97 Laboratory Results Short CBC 11/16/21 Range/Units 10:40 WBC 2.73 L (4.8-10.8) K/uL Hgb 11.2 L (14.0-18.0) g/dL Hct 32.7 L (42-52) % Plt Count 83 L (130-400) K/uL BMP 11/16/21 10:40 Sodium 127 L Potassium 3.8 Chloride 96 L Carbon Dioxide 19 L BUN 58 H Creatinine 3.62 H Glucose 169 H Calcium 8.9 Liver Function 11/16/21 Range/Units 10:40 Total Bilirubin 1.4 H (0.2-1.0) mg/dl Direct Bilirubin 0.5 H (0-0.2) mg/dl AST 132 H (13-39) U/L ALT 75 H (7-52) U/L Alkaline Phosphatase 73 (34-104) U/L Albumin 4.1 (3.4-5.0) gm/dl Urine 11/16/21 Range/Units 10:35 Urine Color Dark Yellow Urine Appearance Cloudy A (Clear) Urine pH 5.0 (4.5-7.5) Ur Specific [place] 1.017 (1.000-1.030) Urine Protein 1+ H (Negative) Urine Glucose (UA) Negative (Negative) Diagnostic Findings Chest X-Ray 11/16/21 10:30 SINGLE VIEW CHEST CLINICAL HISTORY: Sepsis. FINDINGS: An AP, portable, upright chest radiograph is correlated with chest CT dated 03/18/2019. The patient is status post midline sternotomy. The heart is enlarged noting atherosclerotic calcification of the thoracic aorta. The pulmonary vasculature is noncongested. There is mild elevation of the left hemidiaphragm. The lungs and pleural spaces are clear. No pneumothorax is seen. The skeletal structures are osteopenic. The bony thorax is grossly intact. IMPRESSION: Cardiomegaly with no active disease in the chest. ACT 112: Negative or not required by law. Electronically signed by: Anshul Calloway M.D. 11/16/2021 11:06 AM Abdomen/Pelvis CT 11/16/21 11:36 CT abd pelvis wo con CLINICAL HISTORY: sepsis, hypotension, renal failure TECHNIQUE: Helical axial images of the abdomen and pelvis were obtained. Automated dose lowering techniques and/or adjustment according to patient size were utilized for this exam. This exam was performed without intravenous contrast. CT DOSE: 687.28 mGycm COMPARISON: Comparison is made to CT abdomen pelvis radiation therapy 02/23/2019 FINDINGS: Exam is limited by patient motion. Lower chest: No acute abnormality Liver: Unremarkable. No focal lesions are seen. Gallbladder and biliary tree: Layering stones are seen in the gallbladder and duct. Gallbladder wall is seen to measure up to 4 mm. No intra- or extrahepatic biliary ductal dilation. Pancreas: Unremarkable, no focal lesions. Spleen: Unremarkable. Adrenals: Unremarkable. Kidneys and ureters: Unremarkable. Bladder: Bladder wall thickening and diverticula are seen. Reproductive organs: Prostatic calcifications are seen which may represent prior hemorrhage or granulomatous disease. Bowel: Unremarkable. Lymph nodes Retroperitoneal: Unremarkable. Mesenteric: Unremarkable. Pelvic: Unremarkable. Peritoneum: Normal. Vessels: Atherosclerotic calcifications are seen. Abdominal wall: Left fat containing inguinal hernia. Bones: Degenerative changes in the visualized spine. Loss of height of T11 is again noted. Focal sclerosis in the left neck may represent posttreatment change. IMPRESSION: Layering gallstones including stones in the cystic duct. There is mild gal lbladder wall thickening. If there is clinical concern for cholecystitis, ultrasound or HIDA scan can be performed. ACT 112: Negative or not required by law. Electronically signed by: Derrell Choi M.D. 11/16/2021 12:45 PM Supervising Physician Co-Signing Physician Notes History and physical exam performed by nc Patient reports feeling ill since friday, malaise , Worsening weakness. He reports dysuria, frequency. States that this usually happens from time to time she has history of prostate cancer on Lupron has had previous urinary tract infection. Reported some fever. On exam, General: Elderly man in no acute distress Eyes: PERRL, conjunctivae normal, not pale, EOM intact bilaterally ENMT: External ear and nose normal, oropharynx normal Respiratory: Normal respiratory effort, no respiratory distress, lungs clear to auscultation, no crackles and no wheezes Cardiovascular: Irregularly irregular pulse, tachycardic, S1 S2 Gastrointestinal (Abdomen): Abdomen is not distended, soft, non-tender to palpation, no guarding, no palpable hepatosplenomegaly, normal bowel sounds Musculoskeletal: No pedal edema Genitourinary: No CVA tenderness Neurologic: Alert and oriented x 3, No focal weakness, sensation grossly intact Psychiatric: Alert and oriented x 3, euthymic affect Labs notable for WBC of 2.73k, hemoglobin of 11.2, platelet of 83,000, sodium of 127, chloride of 96, bicarb of 19, anion gap of 12, creatinine of 3.62, lactate of 2.5, total bilirubin of 1.4, direct bilirubin of 0.5, AST of 132, ALT of 75, troponin at bedtime of 31, procalcitonin of 2.36, lipase of 145. UA did not show any nitrite or leukocyte esterase and WBC was 1-5 Chest x-ray did not show any acute abnormalities CT abdomen and pelvis reported layering gallstones including stones in the cystic duct, mild gallbladder wall thickening. Severe sepsis Septic shock Acute on chronic kidney disease Afib with RVR Hyponatremia Patient received 30 cc/kg IV fluid bolus in ER. BP initially improved but then became hypotensive again. A. fib with RVR likely contributing to these as well. Was started on Levophed by ER Possible sources for sepsis include UTI [based on symptoms], biliary system (based on labs and CT findings], also rule out tickborne illnesses based on lab. Continue broad-spectrum antibiotics for now Follow-up tickborne labs Follow-up blood cultures and urine culture Admit to ICU considering patient is currently on pressors. Tylenol as needed for fever Vancomycin x1. MRSA screen Doxycycline added until tick borne illness is ruled out On cefepime and flagyl HIDA scan GI consult. May need cholecystectomy once stable Afib with RVR seem new likely in the setting of Patient reported significant rectal bleed for years after radiation in the past. Will defer anticoagulation to Cardiology Get TTE Oral metoprolol once BP improves. Get serum osm, Uosm, Samir. Monitor BMP Agree with other plans as detailed by Mikayla Ashley PA-C
[2021-11-16] MEDS ORDERED: DOXYCYCLINE HYCLATE 100 MG in DEXTROSE 5% 100 ML IV STA (13:07)
[2021-11-16] MEDS ORDERED: VANCOMYCIN HCL 1,500 MG in SODIUM CHLORIDE 0.9% 500 ML IV ONE (13:15)
[2021-11-16] MEDS ORDERED: metroNIDAZOLE 500 MG/100 ML BAG IV STA (13:21)
[2021-11-16 14:12] LABS: Lyme Ab IgG w/WB Rflx Negative (Negative); Lyme Ab IgM w/WB Rflx Negative (Negative)
--- NOTE | 2021-11-16 14:18 | Communication Note ---
Date of Service: November 16, 2021 History and physical exam performed by me Patient reports feeling ill since friday, malaise , Worsening weakness. He reports dysuria, frequency. States that this usually happens from time to time she has history of prostate cancer on Lupron has had previous urinary tract infection. Reported some fever. On exam, General: Elderly man in no acute distress Eyes: PERRL, conjunctivae normal, not pale, EOM intact bilaterally ENMT: External ear and nose normal, oropharynx normal Respiratory: Normal respiratory effort, no respiratory distress, lungs clear to auscultation, no crackles and no wheezes Cardiovascular: Irregularly irregular pulse, tachycardic, S1 S2 Gastrointestinal (Abdomen): Abdomen is not distended, soft, non-tender to p alpation, no guarding, no palpable hepatosplenomegaly, normal bowel sounds Musculoskeletal: No pedal edema Genitourinary: No CVA tenderness Neurologic: Alert and oriented x 3, No focal weakness, sensation grossly intact Psychiatric: Alert and oriented x 3, euthymic affect Labs notable for WBC of 2.73k, hemoglobin of 11.2, platelet of 83,000, sodium of 127, chloride of 96, bicarb of 19, anion gap of 12, creatinine of 3.62, lactate of 2.5, total bilirubin of 1.4, direct bilirubin of 0.5, AST of 132, ALT of 75, troponin at bedtime of 31, procalcitonin of 2.36, lipase of 145. UA did not show any nitrite or leukocyte esterase and WBC was 1-5 Chest x-ray did not show any acute abnormalities CT abdomen and pelvis reported layering gallstones including stones in the cystic duct, mild gallbladder wall thickening. Severe sepsis Septic shock Acute on chronic kidney disease Afib with RVR Hyponatremia Patient received 30 cc/kg IV fluid bolus in ER. BP initially improved but then became hypotensive again. A. fib with RVR likely contributing to these as well. Was started on Levophed by ER Possible sources for sepsis include UTI [based on symptoms], biliary system, based on labs and CT findings], also rule out tickborne illnesses based on lab. Continue broad-spectrum antibiotics for now Follow-up tickborne labs Follow-up blood cultures and urine culture Admit to ICU considering patient is currently on pressors. Tylenol as needed for fever Vancomycin x1. MRSA screen Doxycycline added until tick borne illness is ruled out On cefepime and flagyl HIDA scan GI consult. May need cholecystectomy once stable Afib with RVR seem new likely in the setting of Patient reported significant rectal bleed for years after radiation in the past. Will defer anticoagulation to Cardiology Get TTE Oral metoprolol once BP improves. Get serum osm, Uosm, Samir. Monitor BMP Agree with other plans as detailed by Mikayla Ashley PA-C
--- NOTE | 2021-11-16 14:39 | Electrocardiogram Report ---
Test Reason : Blood Pressure : / mmHG Vent. Rate : 126 BPM Atrial Rate : 126 BPM P-R Int : 140 ms QRS Dur : 140 ms QT Int : 366 ms P-R-T Axes : 055 -44 026 degrees QTc Int : 530 ms Sinus tachycardia with Premature atrial complexes Left axis deviation Right bundle branch block Abnormal ECG No previous ECGs available Confirmed by Kenneth Leija [id number]) on 11/16/2021 2:39:23 PM Referred By: Bhaskar Day Confirmed By:Solo Leija
[2021-11-16] MEDS ORDERED: PHENYLEPHRINE HCL 20 MG in DEXTROSE 5% 500 ML IV SCH (14:45)
--- NOTE | 2021-11-16 14:53 | Critical Care Consultation ---
Date of Consultation November 16, 2021 Assessment & Plan (1) Severe sepsis: Reason Critically Ill: 81-year-old male with severe sepsis requiring vasoactive medication administration with atrial fibrillation with rapid ventricular response. PLAN: CV: Atrial fibrillation with rapid ventricular response -Transition from Levophed to phenylephrine for vasoactive support -Echo completed awaiting formal read -[id number] score: 3 HAS-BLED: 2 (age and predisposition to bleeding: Radiation proctitis) Fluids/Renal: Hyponatremia -Suspect secondary to dehydration High gap metabolic acidosis -Likely related to uremia and most likely sepsis Acute kidney injury Lactic acid acidosis: Improving -Thiamine 200 mg IV x1 ID: Severe sepsis -Continue cefepime, Flagyl, vancomycin, doxycycline -Source considerations: Urinary tract infection, biliary, anaplasmosis GI/Nutrition: Transaminitis Common bile duct stone -gastroenterology consult -Informed we do not have capabilities of performing ERCP until Friday secondary to lack of physical mission dependent resources -General surgery consult -Nuclear medicine hepatobiliary scan ordered -At this time I think ascending cholangitis is lower in the differential, continue with broad-spectrum antibiotics and serial examinations -If this becomes more consistent with ascending cholangitis would facilitate transfer to tertiary care Heme: Leukopenia -Likely acute phase reaction Thrombocytopenia DVT prophylaxis: Heparin 5000 units every 8 Endocrine: ICU hyperglycemia protocol Vascular access: Peripheral IVs Code Status: Full code Disposition: ICU (2) Atrial fibrillation with RVR: (3) MERNA (acute kidney injury): (4) Sepsis: (5) Radiation proctitis: (6) Malignant neoplasm of prostate metastatic to bone: (7) Common bile duct stone: Supervising Physician Co-Signing Physician Notes I have personally spent 55 minutes of critical care time in the direct management of this patient. This is a life/limb threatening event. This includes time spent evaluating patient, direct bedside care, chart review, placing orders, interpretation of diagnostic studies, discussion with consultants, patient, and/or family members regarding treatment decisions, as well as other required patient management activities. This time is exclusive of all separately billable procedures, and teaching time and separate from and in addition to any other critical care service time. History of Present Illness Reason for Consultation: Severe sepsis Requesting Physician: Ellis Newsome MD Attending Physician: Michelle PAYNE History of Present Illness Patient is a 81-year-old male with a significant past medical history of coronary artery disease status post bypass graft, history of prostate cancer with radiation therapy and subsequent rectal bleeding secondary to radiation therapy who presents with approximately 1 week of generalized fatigue and feeling unwell. He denies ever being diagnosed with atrial fibrillation, he does not have chest pain, there is no palpitations he does not feel like he has a racing heart. He reports he has loose stools which she has been dealing with for several weeks and arguably months which are largely unchanged, he denies melena hematochezia. He has a history of frequent urinary tract infections, he does have dysuria and increased frequency. He denies being outdoors any known tick bite nor does he have pets since July. In the emergency department he was found to be hypotensive which was felt to be secondary to sepsis. He received appropriate volume expansion and has been started on Levophed for blood pressure support. Because of the ongoing vasoactive medication requirement I have been asked to evaluate and treat the patient. Allergies Allergy/AdvReac Type Severity Reaction Status Date / Time meperidine AdvReac Mild PASS OUT Verified 06/16/21 09:57 Home Medications Medication Instructions Recorded Confirmed Type bimatoprost 0.01 % eye drops 1 drops OP QPM 07/08/18 11/16/21 History (Lumigan) lisinopril 10 mg tablet 10 mg PO PM 07/08/18 11/16/21 History nitroglycerin 0.4 mg sublingual 0.4 mg SL Q5M PRN 07/08/18 11/16/21 History tablet clobetasol 0.05 % topical cream 1 appln TOP BID PRN 04/19/19 11/16/21 History docusate sodium 100 mg capsule 100 mg PO DAILY PRN 04/25/19 11/16/21 History (Colace) famotidine 40 mg tablet (Pepcid) 40 mg PO QAM 11/15/20 11/16/21 History ferrous sulfate 325 mg (65 mg 325 mg PO QAM 11/15/20 11/16/21 History iron) tablet (FeroSul) turmeric root extract 500 mg 500 mg PO BID 11/15/20 11/16/21 History capsule acetaminophen 500 mg tablet 1,000 mg PO Q6H PRN 06/16/21 11/16/21 History (Tylenol Extra Strength) atorvastatin 40 mg tablet 40 mg PO PM 06/16/21 11/16/21 History metoprolol tartrate 25 mg tablet 25 mg PO BID 06/16/21 11/16/21 History silodosin 8 mg capsule 8 mg PO DAILY 11/16/21 11/16/21 History Patient History Medical History CAD (coronary artery disease) Calculus of ureter Dermatitis Dyslipidemia Glaucoma Bilateral Eyes Hypertension Ischemic heart disease Kidney disease Chronic Stage 3 Polymyalgia rheumatica Prostate CA Diagnosed 06/08/18 - Jeb 3+3, 3+4 Surgical History History of coronary artery bypass graft x 3 2013 History of kidney surgery 1994 - Ureteral Stone Surgery History of prostate biopsy 06/08/18 Status post repair of hydrocele Drainage as a youth Family History Mother , Passed age 87 of CVA Breast cancer, Onset Age: 50 Father , Passed age 64 of Lung Disease No problems noted. Brother No problems noted. Sister , Passed age 58 of breast cancer/head and neck cancer No problems noted. Sister No problems noted. Sister No problems noted. Daughter No problems noted. Social History Smoking Status: Never smoker Tobacco Type: Cigarettes Hx Alcohol Use: Yes Alcohol Intake Frequency: 2-4 x/Month Hx Substance Use: Yes (CBD gummies) Preferred Language: Mauritian Communication Ability: Effective Visual Impairment: Limited Hearing Ability: Normal Chip Person Required: No Beliefs That Will Affect Care: None marital status: Current Living Situation: Spouse current occupational status: retired current occupation: Retired [employer] Feels Safe at Home: Yes caffeine: Yes (2 cups of coffee/day ) during the past year weight has: remained stable Review of Systems Review of Systems: As per the HPI otherwise unremarkable Physical Exam Physical Exam: General: Alert. nontoxic. Skin: Warm, dry, Head: Atraumatic Ears, nose, mouth and throat: airway patent Cardiovascular: Normal peripheral perfusion Respiratory: no respiratory distress Gastrointestinal: Non distended, soft nontender, normal active bowel sounds, t his is not a surgical abdomen. No tenderness to the right upper quadrant negative Chavez sign Musculoskeletal: No deformity Results & Data Results & Data ([facility]) Vital Signs (Past 12 Hours) Vital Signs Temp Pulse Pulse Resp BP BP Pulse Ox 11/16/21 14:15 133 H 28 H 111/90 11/16/21 14:10 140 H 30 H 11/16/21 14:06 121 H 27 H 115/66 11/16/21 14:01 132 H 26 H 106/58 L 11/16/21 14:00 116 H 128 H 26 H 115/68 97 11/16/21 13:55 130 H 29 H 83/41 L 11/16/21 13:51 123 H 28 H 107/62 11/16/21 13:50 132 H 18 11/16/21 13:45 140 H 28 H 122/80 11/16/21 13:40 119 H 29 H 111/81 11/16/21 13:30 146 H 28 H 103/74 11/16/21 13:26 140 H 24 77/64 L 11/16/21 13:20 110 H 27 H 94 11/16/21 13:15 130 H 27 H 112/80 96 11/16/21 13:10 115 H 15 111/78 97 11/16/21 13:05 118 H 17 103/60 96 11/16/21 13:02 113 H 20 98/63 L 96 11/16/21 13:00 116 H 17 96 11/16/21 12:56 104 H 22 101/74 96 11/16/21 12:50 113 H 25 H 91/72 L 97 11/16/21 12:45 110 H 28 H 68/35 L 93 11/16/21 12:42 126 H 28 H 60/43 L 93 11/16/21 12:40 110 H 28 H 11/16/21 12:32 126 H 26 H 77/50 L 92 11/16/21 12:30 128 H 28 H 79/42 L 95 11/16/21 12:28 147 H 29 H 84/43 L 11/16/21 12:25 156 H 23 84/59 L 94 11/16/21 12:04 142 H 19 115/65 98 11/16/21 12:00 180 H 30 H 115/65 11/16/21 11:50 141 H 23 11/16/21 11:40 128 H 27 H 11/16/21 11:30 96/66 L 11/16/21 11:01 124 H 19 100/62 98 11/16/21 10:15 38.3 C H 114 H 18 82/53 L 97 Critical Care Results & Data Vital Signs (Past 12 Hours) Vital Signs Temp Pulse Pulse Resp BP BP Pulse Ox 11/16/21 15:01 121 H 22 86/65 L 96 11/16/21 15:00 118 H 21 11/16/21 14:55 114 H 22 118/83 94 11/16/21 14:50 108 H 23 117/71 11/16/21 14:46 113 H 24 131/66 94 11/16/21 14:40 127 H 18 104/70 96 11/16/21 14:35 122 H 17 118/87 95 11/16/21 14:31 146 H 22 112/96 95 11/16/21 14:30 129 H 17 92 11/16/21 14:26 134 H 22 106/77 95 11/16/21 14:20 120 H 27 H 114/82 11/16/21 14:15 133 H 28 H 111/90 11/16/21 14:10 140 H 30 H 11/16/21 14:06 121 H 27 H 115/66 11/16/21 14:01 132 H 26 H 106/58 L 11/16/21 14:00 116 H 128 H 26 H 115/68 97 11/16/21 13:55 130 H 29 H 83/41 L 11/16/21 13:51 123 H 28 H 107/62 11/16/21 13:50 132 H 18 11/16/21 13:45 140 H 28 H 122/80 11/16/21 13:40 119 H 29 H 111/81 11/16/21 13:30 146 H 28 H 103/74 11/16/21 13:26 140 H 24 77/64 L 11/16/21 13:20 110 H 27 H 94 11/16/21 13:15 130 H 27 H 112/80 96 11/16/21 13:10 115 H 15 111/78 97 11/16/21 13:05 118 H 17 103/60 96 11/16/21 13:02 113 H 20 98/63 L 96 11/16/21 13:00 116 H 17 96 11/16/21 12:56 104 H 22 101/74 96 11/16/21 12:50 113 H 25 H 91/72 L 97 11/16/21 12:46 118 H 21 131/66 96 11/16/21 12:45 110 H 28 H 68/35 L 93 11/16/21 12:42 126 H 28 H 60/43 L 93 11/16/21 12:40 110 H 28 H 11/16/21 12:32 126 H 26 H 77/50 L 92 11/16/21 12:30 128 H 28 H 79/42 L 95 11/16/21 12:28 147 H 29 H 84/43 L 11/16/21 12:25 156 H 23 84/59 L 94 11/16/21 12:04 142 H 19 115/65 98 11/16/21 12:00 180 H 30 H 115/65 11/16/21 11:50 141 H 23 11/16/21 11:40 128 H 27 H 11/16/21 11:30 96/66 L 11/16/21 11:01 124 H 19 100/62 98 11/16/21 10:15 38.3 C H 114 H 18 82/53 L 97 Lab & Micro Results (Past 24 Hours) RBC 3.68 M/uL (4.7-6.1) L 11/16/21 WBC 2.73 K/uL (4.8-10.8) L 11/16/21 Hgb 11.2 g/dL (14.0-18.0) L 11/16/21 Hct 32.7 % (42-52) L 11/16/21 MCV 88.9 fL (80-100) 11/16/21 MCH 30.4 pg (25-34) 11/16/21 MCHC 34.3 g/dL (32-36) 11/16/21 RDW Standard Deviation 45.3 fL (36.4-46.3) 11/16/21 RDW Coefficient of Variation 13.7 % (11.5-14.5) 11/16/21 Plt Count 83 K/uL (130-400) L 11/16/21 MPV 12.0 fL (7.4-10.4) H 11/16/21 Neutrophils (%) (Auto) 79.1 % 11/16/21 Lymphocytes (%) (Auto) 17.2 % 11/16/21 Monocytes # (Auto) 0.08 K/uL (0.11-0.59) L 11/16/21 Eosinophils # (Auto) 0.00 K/uL (0-0.5) 11/16/21 Immature Granulocyte % (Auto) 0.4 % 11/16/21 Neutrophils # (Auto) 2.16 K/uL (1.4-6.5) 11/16/21 Lymphocytes # (Auto) 0.47 K/uL (1.2-3.4) L 11/16/21 Monocytes # (Auto) 0.08 K/uL (0.11-0.59) L 11/16/21 Eosinophils # (Auto) 0.00 K/uL (0-0.5) 11/16/21 Basophils # (Auto) 0.01 K/uL (0-0.2) 11/16/21 Immature Granulocyte # (Auto) 0.01 K/uL (0.00-0.02) 11/16/21 Na 127 mmol/L (136-145) L 11/16/21 K 3.8 mmol/L (3.5-5.1) 11/16/21 Cl 96 mmol/L (98-107) L 11/16/21 CO2 19 mmol/L (21-32) L 11/16/21 Anion Gap 12 (3-11) H 11/16/21 BUN 58 mg/dl (6-23) H 11/16/21 Creatinine 3.62 mg/dl (0.6-1.4) H 11/16/21 Estimated GFR ( Amer) 17.4 ml/min 11/16/21 Estimated GFR (Non-Af Amer) 15.0 ml/min 11/16/21 BUN/Creatinine Ratio 16.0 (10-20) 11/16/21 Glu 169 mg/dl (70-99(Fasting)) H 11/16/21 Ca 8.9 mg/dl (8.5-10.1) 11/16/21 Total Bilirubin 1.4 mg/dl (0.2-1.0) H 11/16/21 Direct Bilirubin 0.5 mg/dl (0-0.2) H 11/16/21 AST 132 U/L (13-39) H 11/16/21 ALT 75 U/L (7-52) H 11/16/21 Alkaline Phosphatase 73 U/L (34-104) 11/16/21 TP 7.1 gm/dl (6.0-8.3) 11/16/21 Albumin 4.1 gm/dl (3.4-5.0) 11/16/21 Mg 2.0 mg/dl (1.7-2.4) 11/16/21 10:40 11/16/21 Calcium Level 8.9 mg/dl (8.5-10.1) 11/16/21 10:40 11/16/21 Prothromb Time International Ratio 1.1 (0.9-1.1) 11/16/21 10:40 11/16/21 Diagnostic Findings (Past 24 Hours) Chest X-Ray 11/16/21 10:30 SINGLE VIEW CHEST CLINICAL HISTORY: Sepsis. FINDINGS: An AP, portable, upright chest radiograph is correlated with chest CT dated 03/18/2019. The patient is status post midline sternotomy. The heart is enlarged noting atherosclerotic calcification of the thoracic aorta. The pulmonary vasculature is noncongested. There is mild elevation of the left hemidiaphragm. The lungs and pleural spaces are clear. No pneumothorax is seen. The skeletal structures are osteopenic. The bony thorax is grossly intact. IMPRESSION: Cardiomegaly with no active disease in the chest. ACT 112: Negative or not required by law. Electronically signed by: Anshul Calloway M.D. 11/16/2021 11:06 AM Abdomen/Pelvis CT 11/16/21 11:36 CT abd pelvis wo con CLINICAL HISTORY: sepsis, hypotension, renal failure TECHNIQUE: Helical axial images of the abdomen and pelvis were obtained. Automated dose lowering techniques and/or adjustment according to patient size were utilized for this exam. This exam was performed without intravenous contrast. CT DOSE: 687.28 mGycm COMPARISON: Comparison is made to CT abdomen pelvis radiation therapy 02/23/2019 FINDINGS: Exam is limited by patient motion. Lower chest: No acute abnormality Liver: Unremarkable. No focal lesions are seen. Gallbladder and biliary tree: Layering stones are seen in the gallbladder and duct. Gallbladder wall is seen to measure up to 4 mm. No intra- or extrahepatic biliary ductal dilation. Pancreas: Unremarkable, no focal lesions. Spleen: Unremarkable. Adrenals: Unremarkable. Kidneys and ureters: Unremarkable. Bladder: Bladder wall thickening and diverticula are seen. Reproductive organs: Prostatic calcifications are seen which may represent prior hemorrhage or granulomatous disease. Bowel: Unremarkable. Lymph nodes Retroperitoneal: Unremarkable. Mesenteric: Unremarkable. Pelvic: Unremarkable. Peritoneum: Normal. Vessels: Atherosclerotic calcifications are seen. Abdominal wall: Left fat containing inguinal hernia. Bones: Degenerative changes in the visualized spine. Loss of height of T11 is again noted. Focal sclerosis in the left neck may represent posttreatment change. IMPRESSION: Layering gallstones including stones in the cystic duct. There is mild gallbladder wall thickening. If there is clinical concern for cholecystitis, ultrasound or HIDA scan can be performed. ACT 112: Negative or not required by law. Electronically signed by: Derrell Choi M.D. 11/16/2021 12:45 PM I & O Totals 24 Hours 11/15/21 11/16/21 11/17/21 06:59 06:59 06:59 Intake Total 3501.217 / 3501.217 Balance 3501.217 / 3501.217 Cumulative 11/16/21 10:11 thru 11/16/21 13:25 Intake Total 3501.217 Balance 3501.217 RT Ventilator Mngmt (Last Documented) Ventilator Ordered Settings Respiratory Rate 22 11/16/21 15:01 Ventilator - PT Measurements Respiratory Rate 22 Coding Level of Care Code Critical Care 1st 30-74 mins Diagnoses Atrial fibrillation with RVR I48.91 MERNA (acute kidney injury) N17.9 Severe sepsis A41.9; R65.20 Sepsis A41.9 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
--- NOTE | 2021-11-16 15:18 | Surgery Consultation ---
Date of Consultation November 16, 2021 Assessment & Plan (1) Common bile duct stone: This is a 81yM with a PMH of prostate cancer with h/o radiation therapy and open heart surgery (2013) who presents to the [facility] ED on 11/16/21 with complaints of generalized weakness and fatigue over the course of this week. He was visited by his daughter today who is an RN and recommended he come in as she did not feel he looked well. In the ER patient found to be septic, he is in afib with RVR and HRs 120-140's, febrile to 38.3, and hypotensive requiring pressors. WBC 2.7, Cr: 3.6, lactate: 2.5. LFT's show Tb: 1.4, AST: 132, ALT: 75. A CT a/p was performed that revealed layering gallstones including stones in the cystic duct with mild gallbladder wall thickening. There is concern for CBD stones. The patient will be transferred to the ICU given septic picture on pressors. On exam he looks remarkably well despite his vitals and lab work. His abdominal exam is benign- soft, non distended, non tender to palpation. He is being worked up for causes of sepsis including UTI, possible tick disease, and biliary pathology. GI to be consulted for consideration of ERCP in his situation for elevated LFTs and concern for choledocholithiasis. We will continue to follow closely and await further workup and stabilization of patient prior to consideration of lap day if indicated. as above except no evidence of cbd stones. d/w with GI . agree doubt biliary source. agree with HIDA. if + rec transfer for perc day tube. not a surgical candidate at this time. will follow along closely. History of Present Illness History of Present Illness This is a 81yM with a PMH of prostate cancer with h/o radiation therapy and open heart surgery (2013) who presents to the [facility] ED on 11/16/21 with complaints of generalized weakness and fatigue over the course of this week. He was visited by his daughter today who is an RN and recommended he come in as she did not feel he looked well. We have been consulted as a CT a/p was performed that revealed layering gallstones including stones in the cystic duct with mild gallbladder wall thickening. Patient denies any fevers/chills, CP/SOB, N/V, or abdominal pain. He reports some loose stools over the last week or more without melena. He has a history of UTI's, last was in the wintertime, and does tell me he is having some burning and frequency with urination. He last ate tasty cakes yesterday around noon without issue. Patient says he does feel like he has had gallbladder attacks in the past, usually after eating out on Friday nights, the last being about a month ago and it self resolved. He has no abdominal surgical history. Allergies Allergy/AdvReac Type Severity Reaction Status Date / Time meperidine AdvReac Mild PASS OUT Verified 06/16/21 09:57 Home Medications Medication Instructions Recorded Confirmed Type bimatoprost 0.01 % eye drops 1 drops OP QPM 07/08/18 11/16/21 History (Lumigan) lisinopril 10 mg tablet 10 mg PO PM 07/08/18 11/16/21 History nitroglycerin 0.4 mg sublingual 0.4 mg SL Q5M PRN 07/08/18 11/16/21 History tablet clobetasol 0.05 % topical cream 1 appln TOP BID PRN 04/19/19 11/16/21 History docusate sodium 100 mg capsule 100 mg PO DAILY PRN 04/25/19 11/16/21 History (Colace) famotidine 40 mg tablet (Pepcid) 40 mg PO QAM 11/15/20 11/16/21 History ferrous sulfate 325 mg (65 mg 325 mg PO QAM 11/15/20 11/16/21 History iron) tablet (FeroSul) turmeric root extract 500 mg 500 mg PO BID 11/15/20 11/16/21 History capsule acetaminophen 500 mg tablet 1,000 mg PO Q6H PRN 06/16/21 11/16/21 History (Tylenol Extra Strength) atorvastatin 40 mg tablet 40 mg PO PM 06/16/21 11/16/21 History metoprolol tartrate 25 mg tablet 25 mg PO BID 06/16/21 11/16/21 History silodosin 8 mg capsule 8 mg PO DAILY 11/16/21 11/16/21 History Patient History Medical History CAD (coronary artery disease) Calculus of ureter Dermatitis Dyslipidemia Glaucoma Bilateral Eyes Hypertension Ischemic heart disease Kidney disease Chronic Stage 3 Polymyalgia rheumatica Prostate CA Diagnosed 06/08/18 - [place] 3+3, 3+4 Surgical History History of coronary artery bypass graft x 3 2013 History of kidney surgery 1994 - Ureteral Stone Surgery History of prostate biopsy 06/08/18 Status post repair of hydrocele Drainage as a youth Family History Mother , Passed age 87 of CVA Breast cancer, Onset Age: 50 Father , Passed age 64 of Lung Disease No problems noted. Brother No problems noted. Sister , Passed age 58 of breast cancer/head and neck cancer No problems noted. Sister No problems noted. Sister No problems noted. Daughter No problems noted. Social History Smoking Status: Never smoker Tobacco Type: Cigarettes Hx Alcohol Use: Yes Alcohol Intake Frequency: 2-4 x/Month Hx Substance Use: Yes (CBD gummies) Preferred Language: Korean Communication Ability: Effective Visual Impairment: Limited Hearing Ability: Normal Composite Mechanic Required: No Beliefs That Will Affect Care: None marital status: Current Living Situation: Spouse current occupational status: retired current occupation: Retired [employer] Feels Safe at Home: Yes caffeine: Yes (2 cups of coffee/day ) during the past year weight has: remained stable Review of Systems Constitutional: + fatigue, + malaise, + weakness and + anorexia; no fever and no chills Respiratory: no dyspnea Cardiovascular: no chest pain Gastrointestinal: + diarrhea/loose stools; no abdominal pain, no nausea, no vomiting and no melena Genitourinary: + dysuria and + urinary frequency; no hematuria Physical Exam Physical Exam: awake/alert, no acute distress Respiratory: normal respiratory effort Gastrointestinal (Abdomen): Inspection/Auscultation: abdomen not distended Percussion/Palpation: abdomen soft; abdomen nontender Results & Data ([facility]) Vital Signs (Past 12 Hours) Vital Signs Temp Pulse Pulse Resp BP BP Pulse Ox 11/16/21 15:01 121 H 22 86/65 L 96 11/16/21 15:00 118 H 21 11/16/21 14:55 114 H 22 118/83 94 11/16/21 14:50 108 H 23 117/71 11/16/21 14:46 113 H 24 131/66 94 11/16/21 14:40 127 H 18 104/70 96 11/16/21 14:35 122 H 17 118/87 95 11/16/21 14:31 146 H 22 112/96 95 11/16/21 14:30 129 H 17 92 11/16/21 14:26 134 H 22 106/77 95 11/16/21 14:20 120 H 27 H 114/82 11/16/21 14:15 133 H 28 H 111/90 11/16/21 14:10 140 H 30 H 11/16/21 14:06 121 H 27 H 115/66 11/16/21 14:01 132 H 26 H 106/58 L 11/16/21 14:00 116 H 128 H 26 H 115/68 97 11/16/21 13:55 130 H 29 H 83/41 L 11/16/21 13:51 123 H 28 H 107/62 11/16/21 13:50 132 H 18 11/16/21 13:45 140 H 28 H 122/80 11/16/21 13:40 119 H 29 H 111/81 11/16/21 13:30 146 H 28 H 103/74 11/16/21 13:26 140 H 24 77/64 L 11/16/21 13:20 110 H 27 H 94 11/16/21 13:15 130 H 27 H 112/80 96 11/16/21 13:10 115 H 15 111/78 97 11/16/21 13:05 118 H 17 103/60 96 11/16/21 13:02 113 H 20 98/63 L 96 11/16/21 13:00 116 H 17 96 11/16/21 12:56 104 H 22 101/74 96 11/16/21 12:50 113 H 25 H 91/72 L 97 11/16/21 12:46 118 H 21 131/66 96 11/16/21 12:45 110 H 28 H 68/35 L 93 11/16/21 12:42 126 H 28 H 60/43 L 93 11/16/21 12:40 110 H 28 H 11/16/21 12:32 126 H 26 H 77/50 L 92 11/16/21 12:30 128 H 28 H 79/42 L 95 11/16/21 12:28 147 H 29 H 84/43 L 11/16/21 12:25 156 H 23 84/59 L 94 11/16/21 12:04 142 H 19 115/65 98 11/16/21 12:00 180 H 30 H 115/65 11/16/21 11:50 141 H 23 11/16/21 11:40 128 H 27 H 11/16/21 11:30 96/66 L 11/16/21 11:01 124 H 19 100/62 98 11/16/21 10:15 38.3 C H 114 H 18 82/[address] L [address] abd pelvis wo con CLINICAL HISTORY: sepsis, hypotension, renal failure TECHNIQUE: Helical axial images of the abdomen and pelvis were obtained. Automated dose lowering techniques and/or adjustment according to patient size were utilized for this exam. This exam was performed without intravenous contrast. CT DOSE: 687.28 mGycm COMPARISON: Comparison is made to CT abdomen pelvis radiation therapy 02/23/2019 FINDINGS: Exam is limited by patient motion. Lower chest: No acute abnormality Liver: Unremarkable. No focal lesions are seen. Gallbladder and biliary tree: Layering stones are seen in the gallbladder and duct. Gallbladder wall is seen to measure up to 4 mm. No intra- or extrahepatic biliary ductal dilation. Pancreas: Unremarkable, no focal lesions. Spleen: Unremarkable. Adrenals: Unremarkable. Kidneys and ureters: Unremarkable. Bladder: Bladder wall thickening and diverticula are seen. Reproductive organs: Prostatic calcifications are seen which may represent prior hemorrhage or granulomatous disease. Bowel: Unremarkable. Lymph nodes Retroperitoneal: Unremarkable. Mesenteric: Unremarkable. Pelvic: Unremarkable. Peritoneum: Normal. Vessels: Atherosclerotic calcifications are seen. Abdominal wall: Left fat containing inguinal hernia. Bones: Degenerative changes in the visualized spine. Loss of height of T11 is again noted. Focal sclerosis in the left neck may represent posttreatment change. IMPRESSION: Layering gallstones including stones in the cystic duct. There is mild gallbladder wall thickening. If there is clinical concern for cholecystitis, ultrasound or HIDA scan can be performed. ACT 112: Negative or not required by law. Electronically signed by: Derrell Choi M.D. 11/16/2021 12:45 PM PG Care Time/CCT Total # of Minutes Spent Total Time Spent with Patient: Total time spent is greater than 50% in coordination of care (as documented) at patient's floor/unit and/or counseling patient: Coding Level of Care Code 30273 Initial Inpt Care Lvl 3 Diagnoses Common bile duct stone K80.50
[2021-11-16] MEDS ORDERED: NOREPINEPHRINE/D5W 4 MG/250 ML IV ONE (15:30)
--- NOTE | 2021-11-16 15:45 | Gastrointestinal Consultation ---
Date of Consultation November 16, 2021 Assessment & Plan (1) Cholelithiasis: (2) Cystic duct calculus: (3) Elevated LFTs: (4) New onset a-fib: If no UTI, then his sepsis and elevated LFTs are most likely secondary to cholecystitis. Recommend HIDA scan. CT mentions that there is no biliary ductal dilation therefore no choledocholithiasis, however, to r/o cholelithiasis and cholangitis, we would need to do MRCP and pt is hesitant as he is claustrophobic. If needs ERCP this weekend then may need transfer to [place] due to equipment issue here at [facility] (no disposable covers for the ERCP scope). Supervising Physician Co-Signing Physician Notes I was called by our REGISTERED RESPIRATORY TECHNICIAN in advice and guidance of this patient, was discussed and seen by my collegue and advanced endoscopist Dr. Dai, please see his note for further recommendations History of Present Illness Reason for Consultation: "stone in the bile duct" Requesting Physician: Dr. Pearce Attending Physician: Dr. Pearce History of Present Illness Mr. Broderick Khan is a 81 yr old male pt of Dr. Bhaskar Day w a hx of CAD (coronary artery disease), glaucoma, CKD-3, polymyalgia rheumatica, Prostate CA S/P surgery/radiation, w miri mets. He presented to the ED today w weakness and was found to be septic, in (apparently new) A-fib w RVR and UA suspicious for UTI. Regarding his symptoms, he tells me that he has dysuria but this is constant, unchanged for yrs. No blood in the urine. At home, he felt weak/dizzy off and on for a week. He also reports two episodes of RUQ pain after eating high fat foods, once 6 wks ago, once 4 wks ago. The pain persisted about 2 hrs each time. He did not have any yellow eyes or skin or any fevers at that time and has not had since then either. He is seen and examined while he is resting in bed in the ICU. He is awake, alert, oriented. CT on arrival w a cystic duct stone, but the bile ducts are clear, though his LFTs have bumped: T Bili 1.4, D Bili 0.5, AST 132, ALT 75, Alk phos is normal at 73 and lipase is mildly elevated at 145. . No jaundice or leukocytosis (he is leukopenic) and is not febrile. HR in the 120's. Had been hypotensive at 83/51 which corrected with IV fluids. He also carries a hx of radiation proctitis and most recently underwent flex sig with APC tx in September 2020. Allergies Allergy/AdvReac Type Severity Reaction Status Date / Time meperidine AdvReac Mild PASS OUT Verified 06/16/21 09:57 Home Medications Medication Instructions Recorded Confirmed Type bimatoprost 0.01 % eye drops 1 drops OP QPM 07/08/18 11/16/21 History (Lumigan) lisinopril 10 mg tablet 10 mg PO PM 07/08/18 11/16/21 History nitroglycerin 0.4 mg sublingual 0.4 mg SL Q5M PRN 07/08/18 11/16/21 History tablet clobetasol 0.05 % topical cream 1 appln TOP BID PRN 04/19/19 11/16/21 History docusate sodium 100 mg capsule 100 mg PO DAILY PRN 04/25/19 11/16/21 History (Colace) famotidine 40 mg tablet (Pepcid) 40 mg PO QAM 11/15/20 11/16/21 History ferrous sulfate 325 mg (65 mg 325 mg PO QAM 11/15/20 11/16/21 History iron) tablet (FeroSul) turmeric root extract 500 mg 500 mg PO BID 11/15/20 11/16/21 History capsule acetaminophen 500 mg tablet 1,000 mg PO Q6H PRN 06/16/21 11/16/21 History (Tylenol Extra Strength) atorvastatin 40 mg tablet 40 mg PO PM 06/16/21 11/16/21 History metoprolol tartrate 25 mg tablet 25 mg PO BID 06/16/21 11/16/21 History silodosin 8 mg capsule 8 mg PO DAILY 11/16/21 11/16/21 History Patient History Medical History (Updated 11/17/21 @ 14:32 by Magdaleno Arcos DO) CAD (coronary artery disease) Calculus of ureter Dermatitis Dyslipidemia Glaucoma Bilateral Eyes Hypertension Ischemic heart disease Kidney disease Chronic Stage 3 Polymyalgia rheumatica Prostate CA Diagnosed 06/08/18 - [place] 3+3, 3+4 Surgical History History of coronary artery bypass graft x 3 2013 History of kidney surgery 1994 - Ureteral Stone Surgery History of prostate biopsy 06/08/18 Status post repair of hydrocele Drainage as a youth Family History Mother , Passed age 87 of CVA Breast cancer, Onset Age: 50 Father , Passed age 64 of Lung Disease No problems noted. Brother No problems noted. Sister , Passed age 58 of breast cancer/head and neck cancer No problems noted. Sister No problems noted. Sister No problems noted. Daughter No problems noted. Social History Smoking Status: Never smoker Tobacco Type: Cigarettes Hx Alcohol Use: Yes Alcohol type: beer Alcohol Intake Frequency: 2-4 x/Month Hx Substance Use: No Preferred Language: Yi Communication Ability: Effective Visual Impairment: Limited Hearing Ability: Normal Nurses Medical Assistants Phlebotomists Required: No Beliefs That Will Affect Care: None marital status: Current Living Situation: Spouse current occupational status: retired current occupation: Retired [employer] Feels Safe at Home: Yes caffeine: Yes (2 cups of coffee/day ) during the past year weight has: remained stable Assistive Devices: Glasses Review of Systems Review of Systems: ROS: Gen: + weakness, No fevers, No weight loss Eyes: No eye redness, or pain, no recent vision changes Resp: No SOB, no cough Cardio: No palpitations/irregular beats, no chest pain (did not feel any irreg ular heart beats). Has had weakness, poor exercise tolerance. GI: No abdominal pain (since 4 wks ago), no nausea/vomiting : Denies pain on urination Skin: No jaundice, itching or new rashes Physical Exam Constitutional: well developed, + thin and cooperative Eyes: PERRL, conjunctivae normal, anicteric sclerae ENMT: external ear and nose normal, oropharynx normal Neck: trachea midline, no thyromegaly Respiratory: normal respiratory effort, lungs clear to auscultation normal respiratory effort and able to speak in complete sentences; no respiratory distress, no labored breathing, does not use accessory muscles and no cough Cardiovascular: Rate/Rhythm: + tachycardic and + irregularly irregular Heart Sounds: no murmur Extremities: no edema Gastrointestinal (Abdomen): normal bowel sounds, soft, nontender, no hepatosplenomegaly Inspection/Auscultation: abdomen normal to inspection and normal bowel sounds; abdomen not distended and no abdominal edema Skin: no rashes, warm and dry normal turgor and + pallor Neurologic: PERRL, EOMI, accommodation nl, no face palsy, no dysarthria awake; not confused Psychiatric: A+Ox3, euthymic affect Orientation: alert, oriented x 3 and cooperative Lymphatic: no cervical or axillary lymphadenopathy Results & Data ([facility]) Vital Signs (Past 12 Hours) Vital Signs Temp Pulse Pulse Resp BP BP Pulse Ox 11/16/21 15:20 128 H 21 131/64 97 11/16/21 15:01 121 H 22 86/65 L 96 11/16/21 15:00 118 H 21 11/16/21 14:55 114 H 22 118/83 94 11/16/21 14:50 108 H 23 117/71 11/16/21 14:46 113 H 24 131/66 94 11/16/21 14:40 127 H 18 104/70 96 11/16/21 14:35 122 H 17 118/87 95 11/16/21 14:31 146 H 22 112/96 95 11/16/21 14:30 129 H 17 92 11/16/21 14:26 134 H 22 106/77 95 11/16/21 14:20 120 H 27 H 114/82 11/16/21 14:15 133 H 28 H 111/90 11/16/21 14:10 140 H 30 H 11/16/21 14:06 121 H 27 H 115/66 11/16/21 14:01 132 H 26 H 106/58 L 11/16/21 14:00 116 H 128 H 26 H 115/68 97 11/16/21 13:55 130 H 29 H 83/41 L 11/16/21 13:51 123 H 28 H 107/62 11/16/21 13:50 132 H 18 11/16/21 13:45 140 H 28 H 122/80 11/16/21 13:40 119 H 29 H 111/81 11/16/21 13:30 146 H 28 H 103/74 11/16/21 13:26 140 H 24 77/64 L 11/16/21 13:20 110 H 27 H 94 11/16/21 13:15 130 H 27 H 112/80 96 11/16/21 13:10 115 H 15 111/78 97 11/16/21 13:05 118 H 17 103/60 96 11/16/21 13:02 113 H 20 98/63 L 96 11/16/21 13:00 116 H 17 96 11/16/21 12:56 104 H 22 101/74 96 11/16/21 12:50 113 H 25 H 91/72 L 97 11/16/21 12:46 118 H 21 131/66 96 11/16/21 12:45 110 H 28 H 68/35 L 93 11/16/21 12:42 126 H 28 H 60/43 L 93 11/16/21 12:40 110 H 28 H 11/16/21 12:32 126 H 26 H 77/50 L 92 11/16/21 12:30 128 H 28 H 79/42 L 95 11/16/21 12:28 147 H 29 H 84/43 L 11/16/21 12:25 156 H 23 84/59 L 94 11/16/21 12:04 142 H 19 115/65 98 11/16/21 12:00 180 H 30 H 115/65 11/16/21 11:50 141 H 23 11/16/21 11:40 128 H 27 H 11/16/21 11:30 96/66 L 11/16/21 11:01 124 H 19 100/62 98 11/16/21 10:15 38.3 C H 114 H 18 82/53 L 97 Laboratory Results WBC 2.7, Hb 11.2, Hct 32.7, Plts 83, INR 1.1, Na 127, K 3.8, Cl 98, CO2 19, BN 58, Cr 3.62, glucose 169. UA w WBCs but negative for bacteria. T bili 1.4, D rios 0.5, AST 132, ALT 32, Alk Phos 73, lipase 145. Diagnostic Findings Mon contrast CTAP: Layering gallstones including stones in the cystic duct. There is mild gallbladder wall thickening. No intra- or extrahepatic biliary ductal dilation. If there is clinical concern for cholecystitis, ultrasound or HIDA scan can be performed.
[2021-11-16] MEDS ORDERED: ICU PROTOCOL FOR HYPERGLYCEMIA PRN (16:21)
[2021-11-16] MEDS ORDERED: THIAMINE HCL 200 MG in SODIUM CHLORIDE 0.9% 50 ML IV STA (17:17)
--- NOTE | 2021-11-16 18:04 | Communication Note ---
Date of Service: November 16, 2021 I saw and evaluated the patient. Please see the full consult from my partner Ms. Saenz. The patient presented to the hospital after having several days of fatigue. He denies having nausea vomiting or epigastric discomfort. GI is consulted due to a slight increase in his liver associated enzymes and a question of sludge and stone material in his gallbladder. Physical examination No scleral icterus No abdominal tenderness I reviewed the patient's CT images unfortunately it is without IV contrast which limits his value. Given the clinical instability the patient I wonder if the patient would be best served at a tertiary care center for consideration of a cholecystostomy tube should a biliary source of his sepsis be likely. At the present time there does not appear to be elevation of his bilirubin, abdominal discomfort nor stone material within his common bile duct. Unfortunately the hospital is out of the distal fitting for ERCP scopes thus ERCP is presently not an option at this facility until a resupply can be obtained. Recomendations: Consider referral to a tertiary care center with interventional radiology support Antibiotic coverage CT results: Liver: Unremarkable. No focal lesions are seen. Gallbladder and biliary tree: Layering stones are seen in the gallbladder and duct. Gallbladder wall is seen to measure up to 4 mm. No intra- or extrahepatic biliary ductal dilation. Pancreas: Unremarkable, no focal lesions. Spleen: Unremarkable. Adrenals: Unremarkable. Kidneys and ureters: Unremarkable. Bladder: Bladder wall thickening and diverticula are seen. Reproductive organs: Prostatic calcifications are seen which may represent prior hemorrhage or granulomatous disease. Bowel: Unremarkable. Lymph nodes Retroperitoneal: Unremarkable. Mesenteric: Unremarkable. Pelvic: Unremarkable. Peritoneum: Normal. Vessels: Atherosclerotic calcifications are seen. Abdominal wall: Left fat containing inguinal hernia. Bones: Degenerative changes in the visualized spine. Loss of height of T11 is again noted. Focal sclerosis in the left neck may represent posttreatment change. IMPRESSION: Layering gallstones including stones in the cystic duct. There is mild gallbladder wall thickening. If there is clinical concern for cholecystitis, ultrasound or HIDA scan can be performed.
[2021-11-16 19:11] LABS: BUN Creatinine Ratio 17.2 (10-20); Calcium 7.2 mg/dl (8.5-10.1); Creatinine Clr Calc Pharmacy 19.1 ml/min; Est GFR (African American) 20.7 ml/min; Est GFR (Non-African American) 17.9 ml/min; Potassium 4.3 mmol/L (3.5-5.1)
--- NOTE | 2021-11-16 20:26 | Pharmacy Report ---
Pharmacy PK ABX Note - Date of Service November 16, 2021 - Assessment and Plan Assessment 81 year old M receiving Vancomycin + Cefepime + Metronidazole + Doxycycline for empiric treatment of septic shock. * PMHx significant for prostate cancer on Lupron and CKD. * Nasal MRSA swab positive. * Cultures pending. Plan Vancomycin * Loading dose: 1500 mg IV x 1 * Maintenance dose: No maintenance dose at this time given MERNA * Random level ordered for: 11/17/21 Cefepime * 2000 mg IV every 24 hours (target dose of 2000 mg IV every 8 hours) Metronidazole * 500 mg IV every 8 hours Doxycycline * 100 mg IV every 12 hours Pharmacy will continue to follow and will adjust dose/frequency as necessary. Thank you. Pharmacy has transitioned to AUC monitoring for vancomycin. AUC/NAVDEEP is the pr eferred PK/PD target and is associated with decreased risk of nephrotoxicity compared to traditional trough targets.
[2021-11-16] MEDS: METOPROLOL TARTRATE 25 MG TAB PO SCH (21:21)
[2021-11-16] MEDS: HEPARIN SOD 5,000 UNIT/0.5 ML VIAL SQ SCH (21:21)
[2021-11-16] MEDS: ATORVASTATIN 40 MG TAB PO SCH (21:21)
[2021-11-16] MEDS: BIMATOPROST 0.01% OP SOLN 2.5 ML BTL OP SCH (21:23)
[2021-11-16] MEDS: DOXYCYCLINE HYCLATE 100 MG in DEXTROSE 5% 100 ML IV SCH (21:59)
[2021-11-16] MEDS: metroNIDAZOLE 500 MG/100 ML BAG IV SCH (21:59)
[2021-11-17 01:27] LABS: Calcium 7.3 mg/dl (8.5-10.1); Creatinine Clr Calc Pharmacy 21.2 ml/min; Est GFR (African American) 23.5 ml/min; Est GFR (Non-African American) 20.3 ml/min; Potassium 3.4 mmol/L (3.5-5.1)
--- NOTE | 2021-11-17 05:50 | Surgery Progress Note ---
Date of Service November 17, 2021 Assessment & Plan (1) Septic shock: (2) Cholelithiasis: Plan: General surgery has been asked to evaluate for potential biliary source as cause of patient's sepsis CT scan on 11/16/2021 showed gallstone in the cystic duct with some mild gallbladder wall thickening MRCP ordered however patient reports history of claustrophobia so this procedure could not be done HIDA scan has been ordered which is pending At the present time patient does not have any abdominal pain suggestive of acute cholecystitis but will await pending studies Check a.m. labs when available Continue IV fluids Continue broad-spectrum antibioticspatient is receiving doxycycline, cefepime, and Flagyl as above. d/w Dr. Pearce. Pt reports feeling better than admission. still on pressors. no abdominal pain. nt. still doubt biliary source. once off pressors can perform HIDA. will continue to follow along for now. Admission and Anticipated Discharge Date Admission Date: November 16, 2021 Subjective Patient is resting comfortably in bed. He denies any nausea or vomiting. He denies any abdominal pain, specifically no right upper quadrant abdominal pain. He does note in the past he has experienced postprandial pain in the right upper quadrant which has self resolved and never required intervention. Discussed with mini shifter nurse. Patient remains on low-dose of Wayne-Synephrine which is being weaned. Patient noted to have fevers overnight. No other concerning issues overnight Physical Exam Gastrointestinal (Abdomen): Abdomen is soft and nondistended. There is no pain with palpation, specifically in the right upper quadrant Results & Data ([facility]) Vital Signs (Past 12 Hours) Vital Signs Temp Pulse Pulse Resp BP BP Pulse Ox 11/17/21 00:00 114 H 11/16/21 23:00 115 H 30 H 93/49 L 94 11/16/21 22:31 112 H 29 H 92/48 L 92 11/16/21 22:30 98 H 28 H 93 11/16/21 22:00 124 H 27 H 95 11/16/21 21:30 121 H 24 98/58 L 96 11/16/21 21:00 99 H 30 H 97/56 L 96 11/16/21 20:30 136 H 26 H 97/65 L 96 11/16/21 20:01 119 H 31 H 103/70 89 L 11/16/21 20:00 126 H 32 H 96 11/16/21 19:30 96 H 30 H 103/63 96 11/16/21 19:00 115 H 25 H 101/63 11/16/21 18:33 38 C H 109 H 21 110/86 96 11/16/21 18:30 107 H 28 H 110/86 11/16/21 18:15 104 H 22 96/83 L 11/16/21 18:08 38 C H 11/16/21 18:00 112 H 21 92/56 L PG Care Time/CCT Total # of Minutes Spent Total Time Spent with Patient: Total time spent is greater than 50% in coordination of care (as documented) at patient's floor/unit and/or counseling patient: Coding Level of Care Code 82526 Subseq Hosp Care Lvl 3 Diagnoses Septic shock A41.9; R65.21 Cholelithiasis K80.20
[2021-11-17] MEDS: PHENYLEPHRINE HCL 20 MG in DEXTROSE 5% 500 ML IV SCH ×3 (05:54→15:38)
[2021-11-17] MEDS: HEPARIN SOD 5,000 UNIT/0.5 ML VIAL SQ SCH ×3 (05:55→21:01)
[2021-11-17] MEDS: metroNIDAZOLE 500 MG/100 ML BAG IV SCH ×3 (05:55→22:41)
--- NOTE | 2021-11-17 07:21 | Critical Care Progress Note ---
Date of Service November 17, 2021 Assessment & Plan (1) Severe sepsis: Plan: Reason Critically Ill: 81-year-old male with severe sepsis requiring vasoactive medication administration with atrial fibrillation with rapid ventricular response. PLAN: CV: Atrial fibrillation with rapid ventricular response -Transition from Levophed to phenylephrine for vasoactive support -Decreasing vasoactive requirement continue current therapy -[id number] score: 3 HAS-BLED: 2 (age and predisposition to bleeding: Radiation proctitis) Fluids/Renal: Hyponatremia: Improved -Suspect secondary to dehydration High gap metabolic acidosis: Improved -Likely related to uremia and most likely sepsis Acute kidney injury: Improved -Start Normosol at 125 mL/h ID: Severe sepsis -Continue cefepime, Flagyl, doxycycline -Source considerations: Urinary tract infection, biliary, anaplasmosis GI/Nutrition: Transaminitis: Improved Common bile duct stone -gastroenterology consult -Informed we do not have capabilities of performing ERCP until Friday secondary to lack of physical mission dependent resources -General surgery consult -Nuclear medicine hepatobiliary scan ordered -Patient continues to stabilize would be candidate for HIDA scan once off vasoactive medication Heme: Leukopenia -Likely acute phase reaction Thrombocytopenia DVT prophylaxis: Heparin 5000 units every 8 Endocrine: ICU hyperglycemia protocol Vascular access: Peripheral IVs Code Status: Full code Disposition: ICU (2) Atrial fibrillation with RVR: (3) MERNA (acute kidney injury): (4) Sepsis: (5) Radiation proctitis: (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 This is a life/limb threatening event. This inc ludes time spent evaluating patient, direct bedside care, chart review, placing orders, interpretation of diagnostic studies, discussion with consultants, patient, and/or family members regarding treatment decisions, as well as other required patient management activities. This time is exclusive of all separately billable procedures, and teaching time and separate from and in addition to any other critical care service time. Subjective Feels improved compared to yesterday. Not exactly hungry but feels he could eat if he had to. No chest pain no shortness of breath. Physical Exam Physical Exam: General: Alert. nontoxic. Skin: Warm, dry, Head: Atraumatic Ears, nose, mouth and throat: airway patent Cardiovascular: Normal peripheral perfusion Respiratory: no respiratory distress Gastrointestinal: Non distended, soft nontender, normal active bowel sounds, this is not a surgical abdomen. No tenderness to the right upper quadrant negative Chavez sign Musculoskeletal: No deformity Results & Data Results & Data ([facility]) Vital Signs (Past 12 Hours) Vital Signs Pulse Resp BP Pulse Ox 11/17/21 06:01 119 H 28 H 116/50 L 95 11/17/21 06:00 135 H 26 H 95 11/17/21 05:30 121 H 20 108/68 95 11/17/21 05:00 120 H 26 H 97/62 L 96 11/17/21 04:30 113 H 27 H 99/57 L 93 11/17/21 04:00 108 H 29 H 102/49 L 89 L 11/17/21 03:30 114 H 26 H 94/65 L 94 11/17/21 03:00 101 H 29 H 101/56 L 93 11/17/21 02:30 103 H 19 96/53 L 95 11/17/21 02:00 115 H 26 H 82/51 L 92 11/17/21 01:30 140 H 23 95/51 L 95 11/17/21 01:00 115 H 27 H 83/50 L 94 11/17/21 00:30 105 H 31 H 83/44 L 95 11/17/21 00:00 105 H 23 84/46 L 95 11/16/21 23:31 116 H 19 82/56 L 94 11/16/21 23:30 128 H 31 H 96 11/16/21 23:00 115 H 30 H 93/49 L 94 11/16/21 22:31 112 H 29 H 92/48 L 92 11/16/21 22:30 98 H 28 H 93 11/16/21 22:00 124 H 27 H 95 11/16/21 21:30 121 H 24 98/58 L 96 11/16/21 21:00 99 H 30 H 97/56 L 96 11/16/21 20:30 136 H 26 H 97/65 L 96 11/16/21 20:01 119 H 31 H 103/70 89 L 11/16/21 20:00 126 H 32 H 96 11/16/21 19:30 96 H 30 H 103/63 96 Critical Care Results & Data Vital Signs (Past 12 Hours) Vital Signs Temp Pulse Resp BP Pulse Ox 11/17/21 11:30 107 H 22 95/59 L 95 11/17/21 11:00 127 H 19 108/62 96 11/17/21 10:31 117 H 22 124/61 97 11/17/21 10:00 114 H 22 115/59 L 95 11/17/21 09:31 132 H 24 84/71 L 95 11/17/21 09:02 113 H 21 130/65 95 11/17/21 08:47 37.5 C 11/17/21 08:31 122 H 20 100/63 95 11/17/21 08:00 116 H 18 105/62 95 11/17/21 07:30 122 H 29 H 82/58 L 95 11/17/21 07:01 115 H 25 H 94 11/17/21 07:00 110 H 19 98/51 L 94 11/17/21 06:31 119 H 19 104/57 L 94 11/17/21 06:01 119 H 28 H 116/50 L 95 11/17/21 06:00 135 H 26 H 95 11/17/21 05:30 121 H 20 108/68 95 11/17/21 05:00 120 H 26 H 97/62 L 96 11/17/21 04:30 113 H 27 H 99/57 L 93 11/17/21 04:00 108 H 29 H 102/49 L 89 L 11/17/21 03:30 114 H 26 H 94/65 L 94 11/17/21 03:00 101 H 29 H 101/56 L 93 11/17/21 02:30 103 H 19 96/53 L 95 11/17/21 02:00 115 H 26 H 82/51 L 92 11/17/21 01:30 140 H 23 95/51 L 95 11/17/21 01:00 115 H 27 H 83/50 L 94 11/17/21 00:30 105 H 31 H 83/44 L 95 Lab & Micro Results (Past 24 Hours) RBC 3.10 M/uL (4.7-6.1) L 11/17/21 WBC 2.88 K/uL (4.8-10.8) L 11/17/21 Hgb 9.7 g/dL (14.0-18.0) L 11/17/21 Hct 27.6 % (42-52) L 11/17/21 MCV 89.0 fL (80-100) 11/17/21 MCH 31.3 pg (25-34) 11/17/21 MCHC 35.1 g/dL (32-36) 11/17/21 RDW Standard Deviation 44.9 fL (36.4-46.3) 11/17/21 RDW Coefficient of Variation 13.8 % (11.5-14.5) 11/17/21 Plt Count 63 K/uL (130-400) L 11/17/21 MPV 13.0 fL (7.4-10.4) H 11/17/21 Neutrophils (%) (Auto) % 11/17/21 Lymphocytes (%) (Auto) % 11/17/21 Monocytes # (Auto) K/uL (0.11-0.59) 11/17/21 Eosinophils # (Auto) K/uL (0-0.5) 11/17/21 Immature Granulocyte % (Auto) % 11/17/21 Neutrophils # (Auto) K/uL (1.4-6.5) 11/17/21 Lymphocytes # (Auto) K/uL (1.2-3.4) 11/17/21 Monocytes # (Auto) K/uL (0.11-0.59) 11/17/21 Eosinophils # (Auto) K/uL (0-0.5) 11/17/21 Basophils # (Auto) K/uL (0-0.2) 11/17/21 Immature Granulocyte # (Auto) K/uL (0.00-0.02) 11/17/21 ANC 1.86 K/uL (1.4-6.5) 11/17/21 ALC 0.84 K/uL (1.2-3.4) L 11/17/21 Neutrophils % (Manual) 64.6 % 11/17/21 Lymphocytes % (Manual) 29.3 % 11/17/21 Monocytes % (Manual) 4.3 % 11/17/21 Basophils % (Manual) 0.9 % 11/17/21 Metamyelocytes % (manual) 0.9 % 11/17/21 Neutrophils # (Manual) 1.86 K/uL (1.4-6.5) 11/17/21 Lymphocytes # (Manual) 0.84 K/uL (1.2-3.4) L 11/17/21 Monocytes # (Manual) 0.12 K/uL (0.11-0.59) 11/17/21 Basophils # (Manual) 0.03 K/uL (0-0.2) 11/17/21 Metamyelocytes # (Manual) 0.03 K/uL (0-0) H 11/17/21 2 Na 131 mmol/L (136-145) L 11/17/21 K 3.3 mmol/L (3.5-5.1) L 11/17/21 Cl 106 mmol/L (98-107) 11/17/21 CO2 15 mmol/L (21-32) L 11/17/21 Anion Gap 10 (3-11) 11/17/21 BUN 46 mg/dl (6-23) H 11/17/21 Creatinine 2.76 mg/dl (0.6-1.4) H 11/17/21 Estimated GFR ( Amer) 24.2 ml/min 11/17/21 Estimated GFR (Non-Af Amer) 20.9 ml/min 11/17/21 BUN/Creatinine Ratio 16.7 (10-20) 11/17/21 Glu 113 mg/dl (70-99(Fasting)) H 11/17/21 Ca 7.8 mg/dl (8.5-10.1) L 11/17/21 Total Bilirubin 1.2 mg/dl (0.2-1.0) H 11/17/21 Direct Bilirubin 0.5 mg/dl (0-0.2) H 11/17/21 AST 110 U/L (13-39) H 11/17/21 ALT 67 U/L (7-52) H 11/17/21 Alkaline Phosphatase 65 U/L (34-104) 11/17/21 TP 5.7 gm/dl (6.0-8.3) L 11/17/21 Albumin 3.2 gm/dl (3.4-5.0) L 11/17/21 Globulin 2.5 gm/dl (2.5-4.0) 11/17/21 Albumin/Globulin Ratio 1.3 (0.9-2) 11/17/21 Calcium Level 7.8 mg/dl (8.5-10.1) L 11/17/21 10:45 11/17/21 Microbiology 11/16/21 10:40 Aerobic Blood Culture - Preliminary Blood No growth in Aerobic bottle after 24 hours. Anaerobic Blood Culture - Preliminary No growth in Anaerobic bottle after 24 hours. 11/16/21 10:45 Aerobic Blood Culture - Preliminary Blood No growth in Aerobic bottle after 24 hours. Anaerobic Blood Culture - Preliminary No growth in Anaerobic bottle after 24 hours. Diagnostic Findings (Past 24 Hours) Abdomen/Pelvis CT 11/16/21 11:36 CT abd pelvis wo con CLINICAL HISTORY: sepsis, hypotension, renal failure TECHNIQUE: Helical axial images of the abdomen and pelvis were obtained. Automated dose lowering techniques and/or adjustment according to patient size were utilized for this exam. This exam was performed without intravenous contrast. CT DOSE: 687.28 mGycm COMPARISON: Comparison is made to CT abdomen pelvis radiation therapy 02/23/2019 FINDINGS: Exam is limited by patient motion. Lower chest: No acute abnormality Liver: Unremarkable. No focal lesions are seen. Gallbladder and biliary tree: Layering stones are seen in the gallbladder and duct. Gallbladder wall is seen to measure up to 4 mm. No intra- or extrahepatic biliary ductal dilation. Pancreas: Unremarkable, no focal lesions. Spleen: Unremarkable. Adrenals: Unremarkable. Kidneys and ureters: Unremarkable. Bladder: Bladder wall thickening and diverticula are seen. Reproductive organs: Prostatic calcifications are seen which may represent prior hemorrhage or granulomatous disease. Bowel: Unremarkable. Lymph nodes Retroperitoneal: Unremarkable. Mesenteric: Unremarkable. Pelvic: Unremarkable. Peritoneum: Normal. Vessels: Atherosclerotic calcifications are seen. Abdominal wall: Left fat containing inguinal hernia. Bones: Degenerative changes in the visualized spine. Loss of height of T11 is again noted. Focal sclerosis in the left neck may represent posttreatment change. IMPRESSION: Layering gallstones including stones in the cystic duct. There is mild gallbladder wall thickening. If there is clinical concern for cholecystitis, ultrasound or HIDA scan can be performed. ACT 112: Negative or not required by law. Electronically signed by: Derrell Choi M.D. 11/16/2021 12:45 PM I & O Totals 24 Hours 11/16/21 11/17/21 11/18/21 06:59 06:59 06:59 Intake Total 5336.000 / 5336.000 440.28 / 440.28 Output Total 302 / 302 Balance 5034.000 / 5034.000 440.28 / 440.28 Cumulative 11/16/21 10:11 thru 11/17/21 12:00 Intake Total 5776.280 Output Total 302 Balance 5474.280 RT Ventilator Mngmt (Last Documented) Ventilator Ordered Settings Respiratory Rate 22 11/17/21 11:30 Ventilator - PT Measurements Respiratory Rate 22 Coding Level of Care Code Critical Care 1st 30-74 mins Diagnoses Severe sepsis A41.9; R65.20 Atrial fibrillation with RVR I48.91 MERNA (acute kidney injury) N17.9 Sepsis A41.9 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
[2021-11-17] MEDS: CEFEPIME 2,000 MG in SYRINGE 0 ML IV SCH (08:33)
[2021-11-17] MEDS: DOXYCYCLINE HYCLATE 100 MG in DEXTROSE 5% 100 ML IV SCH ×2 (08:33→21:00)
[2021-11-17] MEDS: FAMOTIDINE 40 MG TABLET PO SCH ×2 (08:34→15:33)
[2021-11-17] MEDS: FERROUS SULFATE 325 MG TAB PO SCH ×2 (08:35→15:33)
--- NOTE | 2021-11-17 10:50 | Electrocardiogram Report ---
Test Reason : Blood Pressure : / mmHG Vent. Rate : 130 BPM Atrial Rate : 104 BPM P-R Int : 158 ms QRS Dur : 150 ms QT Int : 414 ms P-R-T Axes : 046 -43 006 degrees QTc Int : 609 ms Sinus tachycardia with runs of PAT Left axis deviation Right bundle branch block Abnormal ECG When compared with ECG of 16-NOV-2021 10:30, Runs of PAT are worse Confirmed by Adan Pate ([id number]) on 11/17/2021 10:50:15 AM Referred By: Bhaskar Day Confirmed By:Adan Pate
[2021-11-17] MEDS: METOPROLOL TARTRATE 25 MG TAB PO SCH ×2 (11:08→21:02)
[2021-11-17 11:14] LABS: Hematocrit (blood only) 27.6 % (42-52); Hemoglobin 9.7 g/dL (14.0-18.0); Mean Corpuscular Hemoglobin 31.3 pg (25-34); Mean Corpuscular Hgb Conc 35.1 g/dL (32-36); Platelet Count 63 K/uL (130-400); RDW Coefficient of Variation 13.8 % (11.5-14.5); RDW Standard Deviation 44.9 fL (36.4-46.3); White Blood Count 2.88 K/uL (4.8-10.8)
[2021-11-17 11:27] LABS: ALC (manual) 0.84 K/uL (1.2-3.4); ANC (manual) 1.86 K/uL (1.4-6.5); Basophils # (manual) 0.03 K/uL (0-0.2); Basophils % (manual) 0.9 %; Lymphocytes # (manual) 0.84 K/uL (1.2-3.4); Lymphocytes % (manual) 29.3 %; Metamyelocytes # (manual) 0.03 K/uL (0-0); Metamyelocytes % (manual) 0.9 %; Monocytes # (manual) 0.12 K/uL (0.11-0.59); Monocytes % (manual) 4.3 %; Neutrophils # (manual) 1.86 K/uL (1.4-6.5); Neutrophils % (manual) 64.6 %
[2021-11-17 11:36] LABS: Albumin Globulin Ratio 1.3 (0.9-2); Albumin Level 3.2 gm/dl (3.4-5.0); BUN Creatinine Ratio 16.7 (10-20); Bilirubin Direct 0.5 mg/dl (0-0.2); Bilirubin,Total 1.2 mg/dl (0.2-1.0); Calcium 7.8 mg/dl (8.5-10.1); Creatinine Clr Calc Pharmacy 21.7 ml/min; Est GFR (African American) 24.2 ml/min; Est GFR (Non-African American) 20.9 ml/min; Globulin 2.5 gm/dl (2.5-4.0); Potassium 3.3 mmol/L (3.5-5.1); Total Protein 5.7 gm/dl (6.0-8.3)
[2021-11-17 11:39] LABS: Troponin I High Sensitivity 41.8 pg/ml (0-20)
[2021-11-17] MEDS ORDERED: POTASSIUM CHLORIDE CRTAB 20 MEQ TABCR PO STA ×2 (12:11→15:45)
[2021-11-17] MEDS: NORMOSOL-R 1,000 ML IV SCH ×2 (12:29→19:55)
[2021-11-17] MEDS ORDERED: NORMOSOL-R 500 ML IV ONE (13:08)
--- NOTE | 2021-11-17 14:32 | Cardiology Consultation ---
Date of Consultation November 17, 2021 Assessment & Plan (1) Atrial fibrillation with rapid ventricular response: (2) Acute renal failure: (3) Pancytopenia: (4) Septic shock: (5) Elevated LFTs: (6) Cystic duct calculus: (7) CAD (coronary artery disease): The pathophysiology and treatment options for atrial fibrillation were discussed with the patient and his grandson at the bedside at great length. There were counseled that this is likely secondary response due to his severe sepsis and my hope is that he will lox back into normal sinus rhythm with overall clinical improvement. Reviewing telemetry he does now start to show some organized sinus activity Obvious we are unable to start beta-blockade at this time given his pressure but that should be initiated once BP may support it. Will hold off on anticoagulation at this time given the need for likely upcoming invasive GI procedures. History of Present Illness Reason for Consultation: afib with rvr Requesting Physician: Dr. Davidson Attending Physician: Wilberto Davidson MD History of Present Illness It was my pleasure to see Mr. Khan in cardiac consultation today November 17, 2021. He is a very pleasant 81-year-old gentleman who routinely follows with myself as an outpatient for his history of coronary artery disease. He presented to [facility] on 11/16/2021 with complaints of generalized fatigue and feeling unwell for 1 week. Upon arrival he was found to be septic and hypot ensive. He received volume expansion and started on pressors. He was incidentally found to be in atrial fibrillation with rapid ventricular response which is a new diagnosis for him. Currently states he is feeling much better. He denies any cardiac complaints of chest pain, shortness of breath, palpitations or syncope. PAST MEDICAL HISTORY: 1.Coronary artery disease status post CABG x3 with a LYNN to the LAD, vein graft to the obtuse marginal, and vein graft to the ramus, November 2013. 2.Dyslipidemia. 3.Hypertension. 4.Polymyalgia rheumatica. 5.prostate cancer. Allergies Allergy/AdvReac Type Severity Reaction Status Date / Time meperidine AdvReac Mild PASS OUT Verified 06/16/21 09:57 Home Medications Medication Instructions Recorded Confirmed Type bimatoprost 0.01 % eye drops 1 drops OP QPM 07/08/18 11/16/21 History (Nabil) lisinopril 10 mg tablet 10 mg PO PM 07/08/18 11/16/21 History nitroglycerin 0.4 mg sublingual 0.4 mg SL Q5M PRN 07/08/18 11/16/21 History tablet clobetasol 0.05 % topical cream 1 appln TOP BID PRN 04/19/19 11/16/21 History docusate sodium 100 mg capsule 100 mg PO DAILY PRN 04/25/19 11/16/21 History (Colace) famotidine 40 mg tablet (Pepcid) 40 mg PO QAM 11/15/20 11/16/21 History ferrous sulfate 325 mg (65 mg 325 mg PO QAM 11/15/20 11/16/21 History iron) tablet (FeroSul) turmeric root extract 500 mg 500 mg PO BID 11/15/20 11/16/21 History capsule acetaminophen 500 mg tablet 1,000 mg PO Q6H PRN 06/16/21 11/16/21 History (Tylenol Extra Strength) atorvastatin 40 mg tablet 40 mg PO PM 06/16/21 11/16/21 History metoprolol tartrate 25 mg tablet 25 mg PO BID 06/16/21 11/16/21 History silodosin 8 mg capsule 8 mg PO DAILY 11/16/21 11/16/21 History Patient History Medical History (Updated 11/17/21 @ 14:32 by Magdaleno Arcos DO) CAD (coronary artery disease) Calculus of ureter Dermatitis Dyslipidemia Glaucoma Bilateral Eyes Hypertension Ischemic heart disease Kidney disease Chronic Stage 3 Polymyalgia rheumatica Prostate CA Diagnosed 06/08/18 - Jeb 3+3, 3+4 Surgical History History of coronary artery bypass graft x 3 2013 History of kidney surgery 1994 - Ureteral Stone Surgery History of prostate biopsy 06/08/18 Status post repair of hydrocele Drainage as a youth Family History Mother , Passed age 87 of CVA Breast cancer, Onset Age: 50 Father , Passed age 64 of Lung Disease No problems noted. Brother No problems noted. Sister , Passed age 58 of breast cancer/head and neck cancer No problems noted. Sister No problems noted. Sister No problems noted. Daughter No problems noted. Social History Smoking Status: Never smoker Tobacco Type: Cigarettes Hx Alcohol Use: Yes Alcohol type: beer Alcohol Intake Frequency: 2-4 x/Month Hx Substance Use: No Preferred Language: Sami Communication Ability: Effective Visual Impairment: Limited Hearing Ability: Normal Biomass Boiler Operator Required: No Beliefs That Will Affect Care: None marital status: Current Living Situation: Spouse current occupational status: retired current occupation: Retired [employer] Feels Safe at Home: Yes caffeine: Yes (2 cups of coffee/day ) during the past year weight has: remained stable Assistive Devices: Glasses Review of Systems Review of Systems: All systems reviewed & are unremarkable except as noted in HPI & below Physical Exam Physical Exam: General: Awake, alert and oriented x 3. No acute distress. HEENT: Normocephalic, atraumatic. Pupils equal, round and reactive to light and accommodation. Extraocular muscles are intact. Anicteric sclera. Moist mucous membranes. Neck: No JVD. No bruit. Cardiovascular: irregularly irregular, unable to appreciate murmur, rub or gallop. Pulmonary: Clear to auscultation bilaterally. No rales, rhonchi, or wheezing. Abdomen: Bowel sounds x 4, soft. No rebound, guarding or tenderness. No organomegaly. Extremities: No clubbing, cyanosis or edema. +2 pedal pulses bilaterally. Skin: Warm and dry. Results & Data ([facility]) Vital Signs (Past 12 Hours) Vital Signs Temp Pulse Resp BP Pulse Ox 11/17/21 11:30 107 H 22 95/59 L 95 11/17/21 11:00 127 H 19 108/62 96 11/17/21 10:31 117 H 22 124/61 97 11/17/21 10:00 114 H 22 115/59 L 95 11/17/21 09:31 132 H 24 84/71 L 95 11/17/21 09:02 113 H 21 130/65 95 11/17/21 08:47 37.5 C 11/17/21 08:31 122 H 20 100/63 95 11/17/21 08:00 116 H 18 105/62 95 11/17/21 07:30 122 H 29 H 82/58 L 95 11/17/21 07:01 115 H 25 H 94 11/17/21 07:00 110 H 19 98/51 L 94 11/17/21 06:31 119 H 19 104/57 L 94 11/17/21 06:01 119 H 28 H 116/50 L 95 11/17/21 06:00 135 H 26 H 95 11/17/21 05:30 121 H 20 108/68 95 11/17/21 05:00 120 H 26 H 97/62 L 96 11/17/21 04:30 113 H 27 H 99/57 L 93 11/17/21 04:00 108 H 29 H 102/49 L 89 L 11/17/21 03:30 114 H 26 H 94/65 L 94 11/17/21 03:00 101 H 29 H 101/56 L 93 (1) Acute renal failure Acute renal failure type: unspecified Qualified Code(s): N17.9 - Acute kidney failure, unspecified
[2021-11-17] MEDS ORDERED: Nursing to Pharmacy Communication SCH (14:45)
--- NOTE | 2021-11-17 18:28 | Hospitalist Progress Note ---
Date of Service November 17, 2021 Assessment & Plan (1) Sepsis: (2) MERNA (acute kidney injury): (3) Atrial fibrillation with RVR: Plan: Patient is 81 y/o M with PMH HTN, prostate CA, CAD s/p CABG, HTN, dyslipidemia, CKD III presented to ER with c/o fatigue x several days. Couple of loose stools, nausea yesterday. Denies CP, SOB, abdominal pain. C/O dysuria and urinary frequency past couple of days. In ER patient febrile 38.3C, tachycardic, hypotensive. WBC: 2.7 (baseline in 5s), thrombocytopenia, elevated LFTs, lactate: 2.5, procalcitonin: 2.3, UA without leukocytes, nitrites or bacteria. Negative SARS-CoV-2 NAAT test CXR: no active disease in the chest. CT ABD/PELVIS: Layering gallstones including stones in the cystic duct. There is mild gallbladder wall thickening.If there is clinical concern for cholecystitis, ultrasound or HIDA scan can be performed. In ER resuscitated with IVF with continued hypotension. Started on Levophed. 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 Baseline ~1.6; Monitor renal functions, avoid nephrotoxic agents when possible Afib with RVR, newly diagnosed in ED- suspected secondary to his severe sepsis - Home BB on hold due to hypotension requiring pressors - Cardiology following- holding off on anticoag due to need for upcoming invasive GI procedures Hyponatremia- mild, improving from 127->131 Hypokalemia- repleted, recheck in am Loose stool- patient states from radiation treatment. Check C diff, if negative imodium prn as requested Elevated trop- likely demand ischemia, trop trend flat, no chest pain, cardio following HTN- Hold home lisinopril as currently hypotensive and on pressor CAD S/p CABG in 2013 Prostate CA S/p radiation, previous hormone therapy- Hold home silodosin for now DVT Prophylaxis- Heparin SQ Dispo- On ICU, on pressor Full Code Admission and Anticipated Discharge Date Admission Date: November 16, 2021 Subjective Feels much better from yesterday. Denies any pain, N/V. No fever or chills. No shortness of breath. having some loose stools. Physical Exam Physical Exam: General: Lying comfortably in bed, not in distress, on room air HEENT: EOMI, ROSANA, MMM Chest: Clear breath sounds bilaterally, no wheezes or crackles CVS: Regular rate and rhythm, normal heart sounds, no murmur Abdomen: Soft, non tender, not distended, normal bowel sounds Neuro: Awake, alert, oriented, conversing well, non focal Extremities: No cyanosis, clubbing or edema Results & Data Results & Data ([facility]) Vital Signs (Past 12 Hours) Vital Signs Temp Pulse Resp BP Pulse Ox 11/17/21 15:31 93 H 23 89/54 L 96 11/17/21 15:00 117 H 24 113/74 95 11/17/21 14:31 103 H 28 H 101/65 96 11/17/21 13:30 83 18 98/59 L 97 11/17/21 13:00 106 H 27 H 89/57 L 96 11/17/21 12:00 92 H 27 H 96/57 L 96 11/17/21 11:30 107 H 22 95/59 L 95 11/17/21 11:00 127 H 19 108/62 96 11/17/21 10:31 117 H 22 124/61 97 11/17/21 10:00 114 H 22 115/59 L 95 11/17/21 09:31 132 H 24 84/71 L 95 11/17/21 09:02 113 H 21 130/65 95 11/17/21 08:47 37.5 C 11/17/21 08:31 122 H 20 100/63 95 11/17/21 08:00 116 H 18 105/62 95 11/17/21 07:30 122 H 29 H 82/58 L 95 11/17/21 07:01 115 H 25 H 94 11/17/21 07:00 110 H 19 98/51 L 94 11/17/21 06:31 119 H 19 104/57 L 94 Laboratory Results Short CBC 11/17/21 11/17/21 Range/Units 06:32 10:47 WBC 2.88 L (4.8-10.8) K/uL Hgb 9.7 L (14.0-18.0) g/dL Hct 27.6 L (42-52) % Plt Count 63 L (130-400) K/uL BMP 11/16/21 11/17/21 11/17/21 18:22 00:52 06:34 Sodium 131 L 129 L Potassium 4.3 3.4 L D Chloride 107 106 Carbon Dioxide 14 L 15 L BUN 54 H 51 H Creatinine 3.14 H D 2.83 H D Glucose 138 H 104 H Calcium 7.2 L 7.3 L 11/17/21 10:45 Sodium 131 L Potassium 3.3 L Chloride 106 Carbon Dioxide 15 L BUN 46 H Creatinine 2.76 H Glucose 113 H Calcium 7.8 L Liver Function 11/17/21 11/17/21 Range/Units 06:34 10:45 Total Bilirubin 1.2 H (0.2-1.0) mg/dl Direct Bilirubin 0.5 H (0-0.2) mg/dl AST 110 H (13-39) U/L ALT 67 H (7-52) U/L Alkaline Phosphatase 65 (34-104) U/L Albumin 3.2 L (3.4-5.0) gm/dl Medications Administered Current Inpatient Medications Atorvastatin Calcium (Atorvastatin 40 Mg Tab) 40 mg PO PM [facility] Stop: 12/16/21 20:59 Last Admin: 11/16/21 21:21 Dose: 40 mg Documented by: Bimatoprost (Bimatoprost 0.01% Op Soln 2.5 Ml Btl) 1 drops OP QPM [facility] Stop: 12/16/21 20:59 Last Admin: 11/16/21 21:23 Dose: 1 drops Documented by: Famotidine (Famotidine 40 Mg Tablet) 40 mg PO QAM [facility] Stop: 12/17/21 08:59 Last Admin: 11/17/21 15:33 Dose: 40 mg Documented by: Ferrous Sulfate (Ferrous Sulfate 325 Mg Tab) 325 mg PO QAM [facility] Stop: 12/17/21 08:59 Last Admin: 11/17/21 15:33 Dose: 325 mg Documented by: Heparin Sodium (Porcine) (Heparin Sod 5,000 Unit/0.5 Ml Vial) 5,000 units SQ Q8 [facility] Stop: 12/16/21 21:59 Last Admin: 11/17/21 15:36 Dose: 5,000 units Documented by: Doxycycline Hyclate 100 mg/ (Dextrose) 110 mls @ 50 mls/hr IV Q12 [facility] Stop: 11/18/21 22:59 Last Infusion: 11/17/21 11:08 Dose: Infused Documented by: Cefepime HCl 2,000 mg/ Syringe 20 mls @ 5 mls/min IV Q24H [facility]; Protocol Stop: 11/27/21 08:59 Last Admin: 11/17/21 08:33 Dose: 5 mls/min Documented by: Metronidazole (Flagyl) 500 mg in 100 mls @ 100 mls/hr IV Q8H [facility] Stop: 11/26/21 21:59 Last Infusion: 11/17/21 16:37 Dose: Infused Documented by: Phenylephrine HCl 20 mg/ (Dextrose) 502 mls @ 47.047 mls/hr IV .[id number] [facility]; Protocol Stop: 12/16/21 14:45 Last Admin: 11/17/21 15:38 Dose: 0.4 mcg/kg/min, 47 mls/hr Documented by: Parenteral Electrolytes (Normosol-R) 1,000 mls @ 125 mls/hr IV .Q8H [facility] Stop: 12/17/21 12:14 Last Admin: 11/17/21 12:29 Dose: 125 mls/hr Documented by: Metoprolol Tartrate (Metoprolol Tartrate 25 Mg Tab) 25 mg PO BID [facility] Stop: 12/16/21 20:59 Last Admin: 11/17/21 11:08 Dose: 25 mg Documented by: Miscellaneous (Icu Protocol For Hyperglycemia) 1 ea N/A PRN PRN; Protocol PRN Reason: Hyperglycemia Protocol Stop: 11/18/21 16:20
[2021-11-17] MEDS: ATORVASTATIN 40 MG TAB PO SCH (21:02)
[2021-11-17] MEDS: BIMATOPROST 0.01% OP SOLN 2.5 ML BTL OP SCH (21:02)
[2021-11-18] MEDS: NORMOSOL-R 1,000 ML IV SCH ×2 (05:18→13:26)
[2021-11-18] MEDS ORDERED: PANTOPRAZOLE BOLUS/DRIP 1 EA IV STA (05:30)
[2021-11-18] MEDS ORDERED: PANTOprazole 80 MG in DEXTROSE 5% 100 ML IV ONE (05:45)
[2021-11-18] MEDS: metroNIDAZOLE 500 MG/100 ML BAG IV SCH ×3 (06:02→21:06)
[2021-11-18] MEDS: PANTOprazole 40 MG in DEXTROSE 5% 100 ML IV SCH ×2 (06:02→10:46)
--- NOTE | 2021-11-18 06:06 | Surgery Progress Note ---
Date of Service November 18, 2021 Assessment & Plan (1) Septic shock: (2) Cholelithiasis: Plan: General surgery has been asked to evaluate for potential biliary source as cause of patient's sepsis CT scan on 11/16/2021 showed gallstone in the cystic duct with some mild gallbladder wall thickening MRCP ordered however patient reports history of claustrophobia so this procedure could not be done HIDA scan has been ordered, however patient has been unable to have the study as he remains on Wayne-Synephrine for blood pressure support. We will check the study when available the patient's abdominal exam remains benign without signs concerning for acute cholecystitis Continue broad-spectrum antibioticspatient is receiving doxycycline, cefepime, and Flagyl Concerning patient's rectal bleeding his subcutaneous heparin has been held and he has been placed on intravenous Protonix. Gastroenterology consulted for potential lower endoscopy but we are awaiting their input. Continue to follow serial labs. As above. Patient continues to tolerate diet with no abdominal pain. We will sign off at this point. Please call us with any concerns or questions. Admission and Anticipated Discharge Date Admission Date: November 16, 2021 Subjective Patient is resting comfortably in bed. He denies any abdominal pain or nausea or vomiting. Last evening patient developed rectal bleeding. Discussed with RN as well as ICU staff and is noted the patient initially had maroon-colored bowel movements but is now having bright red blood per rectum. He remains on Wayne-Synephrine for blood pressure support. No fevers since 11/17/2021 at approximately 6:30 PM. Physical Exam Gastrointestinal (Abdomen): Abdomen is soft and nondistended. Bowel sounds are present. There is no pain with palpation, specifically in the right upper quadrant. Results & Data ([facility]) Vital Signs (Past 12 Hours) Vital Signs Temp Pulse Resp BP Pulse Ox 11/18/21 05:30 114 H 25 H 110/77 97 11/18/21 05:00 103 H 27 H 99/62 L 97 11/18/21 04:01 36.7 C 89 20 99/56 L 97 11/18/21 04:00 116 H 25 H 95 11/18/21 03:32 94 H 21 94/56 L 95 11/18/21 03:31 100 H 30 H 96 11/18/21 03:01 106 H 17 84/70 L 96 11/18/21 03:00 110 H 15 97 11/18/21 02:30 112 H 27 H 91/50 L 96 11/18/21 02:00 97 H 25 H 88/52 L 97 11/18/21 01:30 100 H 19 93/58 L 97 11/18/21 01:00 95 H 26 H 93/60 L 95 11/18/21 00:30 96 H 24 105/65 97 11/18/21 00:01 99 H 30 H 103/66 95 11/18/21 00:00 99 H 27 H 96 11/17/21 23:31 111 H 24 90/66 L 97 11/17/21 23:30 99 H 27 H 97 11/17/21 23:00 37.1 C 106 H 23 116/73 98 11/17/21 22:30 99 H 26 H 92/58 L 97 11/17/21 22:00 105 H 21 96/74 L 96 11/17/21 21:30 111 H 21 103/78 96 11/17/21 21:29 114 H 22 121/74 96 11/17/21 21:00 36.4 C L 109 H 22 97 11/17/21 20:30 108 H 28 H 106/71 96 11/17/21 20:00 96 H 23 107/65 96 11/17/21 19:31 122 H 24 95/81 L 95 11/17/21 19:01 107 H 29 H 104/67 97 11/17/21 19:00 98 H 29 H 97 PG Care Time/CCT Total # of Minutes Spent Total Time Spent with Patient: Total time spent is greater than 50% in coordination of care (as documented) at patient's floor/unit and/or counseling patient: Coding Level of Care Code 35377 Subseq Hosp Care Lvl 2 Diagnoses Septic shock A41.9; R65.21 Cholelithiasis K80.20
[2021-11-18 06:32] LABS: Hematocrit (blood only) 27.9 % (42-52); Hemoglobin 9.8 g/dL (14.0-18.0); Mean Corpuscular Hemoglobin 30.7 pg (25-34); Mean Corpuscular Hgb Conc 35.1 g/dL (32-36); Mean Corpuscular Volume 87.5 fL (80-100); Mean Platelet Volume 12.6 fL (7.4-10.4); Platelet Count 69 K/uL (130-400); RDW Coefficient of Variation 13.7 % (11.5-14.5); RDW Standard Deviation 43.9 fL (36.4-46.3); Red Blood Count 3.19 M/uL (4.7-6.1); White Blood Count 3.97 K/uL (4.8-10.8)
[2021-11-18 06:33] LABS: ANC (manual) 2.82 K/uL (1.4-6.5); Echinocytes 3+; Eosinophils % (manual) 2.6 %; Lymphocytes % (manual) 20.2 %; Monocytes # (manual) 0.24 K/uL (0.11-0.59); Monocytes % (manual) 6.1 %; Neutrophils # (manual) 2.82 K/uL (1.4-6.5); Neutrophils % (manual) 71.1 %
[2021-11-18 06:37] LABS: BUN Creatinine Ratio 16.4 (10-20); Calcium 7.8 mg/dl (8.5-10.1); Creatinine Clr Calc Pharmacy 25.2 ml/min; Phosphorus 2.3 mg/dl (2.5-4.9); Potassium 3.5 mmol/L (3.5-5.1)
[2021-11-18 06:49] LABS: Albumin Level 3.1 gm/dl (3.4-5.0); Bilirubin Direct 0.1 mg/dl (0-0.2); Bilirubin,Total 0.9 mg/dl (0.2-1.0); Total Protein 5.5 gm/dl (6.0-8.3)
[2021-11-18] MEDS: METOPROLOL TARTRATE 25 MG TAB PO SCH ×2 (07:51→21:05)
[2021-11-18] MEDS: FERROUS SULFATE 325 MG TAB PO SCH (07:51)
[2021-11-18] MEDS: CEFEPIME 2,000 MG in SYRINGE 0 ML IV SCH (08:22)
[2021-11-18] MEDS: DOXYCYCLINE HYCLATE 100 MG in DEXTROSE 5% 100 ML IV SCH ×2 (08:22→21:03)
--- NOTE | 2021-11-18 09:13 | Cardiology Progress Note ---
Date of Service November 18, 2021 Assessment & Plan (1) Atrial fibrillation with rapid ventricular response: (2) Acute renal failure: (3) Pancytopenia: (4) Septic shock: (5) Elevated LFTs: (6) Cystic duct calculus: (7) CAD (coronary artery disease): Plan: Pt has converted to sinus mechanism with frequent supraventricular ectopy no further cardiac testing or intervention necessary at this time Will hold off on anticoagulation at this time given the need for likely upcoming invasive GI procedures and active bleeding with only SubQ Lovenox risk discussed with patient, in agreement with holding anticoagulation Admission and Anticipated Discharge Date Admission Date: November 16, 2021 Subjective Ptseen and examined, chart reviewed. Rectal bleeding overnight with SubQ lovenox. No cardiac complaints. Tele reviewed: sinus rhythm with frequent supraventricular ectopy Review of Systems Review of Systems: All systems reviewed & are unremarkable except as noted in HPI & below Physical Exam Physical Exam: General: Awake, alert and oriented x 3. No acute distress. HEENT: Normocephalic, atraumatic. Pupils equal, round and reactive to light and accommodation. Extraocular muscles are intact. Anicteric sclera. Moist mucous membranes. Neck: No JVD. No bruit. Cardiovascular: irregularly irregular, unable to appreciate murmur, rub or gallop. Pulmonary: Clear to auscultation bilaterally. No rales, rhonchi, or wheezing. Abdomen: Bowel sounds x 4, soft. No rebound, guarding or tenderness. No organomegaly. Extremities: No clubbing, cyanosis or edema. +2 pedal pulses bilaterally. Skin: Warm and dry. Results & Data ([facility]) Vital Signs (Past 12 Hours) Vital Signs Temp Pulse Resp BP Pulse Ox 11/18/21 09:10 98 H 25 H 104/62 96 11/18/21 09:01 101 H 29 H 116/71 96 11/18/21 09:00 145 H 25 H 96 11/18/21 08:50 101 H 25 H 96 11/18/21 08:48 116 H 30 H 107/69 96 11/18/21 08:40 112 H 23 96 11/18/21 08:31 114 H 24 95/58 L 96 11/18/21 08:30 106 H 22 96 11/18/21 08:20 106 H 20 96 11/18/21 08:15 113 H 19 96 06/19/22 08:00 37 C 113 H 26 H 113/66 95 11/18/21 07:55 121 H 22 93/67 L 96 11/18/21 07:45 138 H 23 95 11/18/21 07:41 134 H 23 117/70 96 11/18/21 07:36 102 H 11/18/21 07:30 144 H 17 97 11/18/21 07:15 113 H 27 H 96 11/18/21 07:00 111 H 19 95 11/18/21 06:45 108 H 24 94 11/18/21 06:31 110 H 22 120/51 L 97 11/18/21 06:30 115 H 25 H 97 11/18/21 06:15 109 H 20 97 11/18/21 06:00 112 H 23 119/69 93 11/18/21 05:45 104 H 18 95 11/18/21 05:30 114 H 25 H 110/77 97 11/18/21 05:00 103 H 27 H 99/62 L 97 11/18/21 04:01 36.7 C 89 20 99/56 L 97 11/18/21 04:00 116 H 25 H 95 11/18/21 03:32 94 H 21 94/56 L 95 11/18/21 03:31 100 H 30 H 96 11/18/21 03:01 106 H 17 84/70 L 96 11/18/21 03:00 110 H 15 97 11/18/21 02:30 112 H 27 H 91/50 L 96 11/18/21 02:00 97 H 25 H 88/52 L 97 11/18/21 01:30 100 H 19 93/58 L 97 11/18/21 01:00 95 H 26 H 93/60 L 95 11/18/21 00:30 96 H 24 105/65 97 11/18/21 00:01 99 H 30 H 103/66 95 11/18/21 00:00 99 H 27 H 96 11/17/21 23:31 111 H 24 90/66 L 97 11/17/21 23:30 99 H 27 H 97 11/17/21 23:00 37.1 C 106 H 23 116/73 98 11/17/21 22:30 99 H 26 H 92/58 L 97 11/17/21 22:00 105 H 21 96/74 L 96 11/17/21 21:30 111 H 21 103/78 96 11/17/21 21:29 114 H 22 121/74 96 (1) Acute renal failure Acute renal failure type: unspecified Qualified Code(s): N17.9 - Acute kidney failure, unspecified
--- NOTE | 2021-11-18 12:46 | Critical Care Progress Note ---
Date of Service November 18, 2021 Assessment & Plan (1) Severe sepsis: Plan: Reason Critically Ill: 81-year-old male with severe sepsis requiring vasoactive medication administration with atrial fibrillation with rapid ventricular response. PLAN: CV: Atrial fibrillation with rapid ventricular response -Transitioned off Levophed in the last hour -Check random cortisol and give single dose 100 mg Solu- Cortef -[id number] score: 3 HAS-BLED: 2 (age and predisposition to bleeding: Radiation proctitis) Fluids/Renal: Hyponatremia: Improved -Suspect secondary to dehydration High gap metabolic acidosis: Improved -Likely related to uremia and most likely sepsis Acute kidney injury: Improved -Decrease Normosol to 80 secondary to n.p.o. after midnight for possible HIDA scan ID: Severe sepsis -Continue cefepime, Flagyl, doxycycline -Source considerations: Urinary tract infection, biliary, anaplasmosis: PCR pending GI/Nutrition: Transaminitis: Improved Common bile duct stone -gastroenterology consult -Informed we do not have capabilities of performing ERCP until Friday secondary to lack of physical mission dependent resources -General surgery consult -Nuclear medicine hepatobiliary scan ordered -Patient continues to stabilize would be candidate for HIDA scan once off vasoactive medication Rectal bleeding -Likely secondary to radiation proctitis -40 mg Protonix twice daily discontinue infusion at this time Heme: Leukopenia -Likely acute phase reaction Thrombocytopenia DVT prophylaxis: Heparin 5000 units every 8 Endocrine: ICU hyperglycemia protocol Vascular access: Peripheral IVs Code Status: Full code Disposition: ICU (2) Atrial fibrillation with RVR: (3) MERNA (acute kidney injury): (4) Sepsis: (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 This is a life/limb threatening event. This inclu milan time spent evaluating patient, direct bedside care, chart review, placing orders, interpretation of diagnostic studies, discussion with consultants, patient, and/or family members regarding treatment decisions, as well as other required patient management activities. This time is exclusive of all separately billable procedures, and teaching time and separate from and in addition to any other critical care service time. Subjective Reports he feels at baseline and felt that he could get up and walk to the commode. Denies chest pain or shortness of breath. Is frustrated with recurrence of issues especially the bloody stools. Tolerating his diet Physical Exam Physical Exam: General: Alert. nontoxic. Skin: Warm, dry, Head: Atraumatic Ears, nose, mouth and throat: airway patent Cardiovascular: Normal peripheral perfusion, irregularly irregular with bouts of significant tachycardia Respiratory: no respiratory distress Gastrointestinal: Nontender nondistended Musculoskeletal: No deformity Results & Data Results & Data ([facility]) Vital Signs (Past 12 Hours) Vital Signs Temp Pulse Resp BP Pulse Ox 11/18/21 11:10 97 H 19 97 11/18/21 11:00 98 H 21 96/56 L 97 11/18/21 10:50 78 29 H 98 11/18/21 10:45 112 H 29 H 100/65 98 11/18/21 10:40 84 18 98 11/18/21 10:34 89 24 93/51 L 97 11/18/21 10:30 98 H 20 98 11/18/21 10:23 96 H 30 H 95/60 L 98 11/18/21 10:20 99 H 26 H 97 11/18/21 10:16 103 H 18 96/56 L 97 11/18/21 10:10 85 28 H 96 11/18/21 10:00 88 25 H 95/63 L 97 11/18/21 09:51 106 H 28 H 95/51 L 96 11/18/21 09:50 106 H 25 H 89/53 L 96 11/18/21 09:40 98 H 22 95 11/18/21 09:30 106 H 26 H 92/67 L 96 11/18/21 09:20 116 H 22 97 11/18/21 09:17 116 H 28 H 94/63 L 95 11/18/21 09:15 97 H 25 H 75/63 L 96 11/18/21 09:10 98 H 25 H 104/62 96 11/18/21 09:01 101 H 29 H 116/71 96 11/18/21 09:00 145 H 25 H 96 11/18/21 08:50 101 H 25 H 96 11/18/21 08:48 116 H 30 H 107/69 96 11/18/21 08:40 112 H 23 96 11/18/21 08:31 114 H 24 95/58 L 96 11/18/21 08:30 106 H 22 96 11/18/21 08:20 106 H 20 96 11/18/21 08:15 113 H 19 96 11/18/21 08:00 37 C 113 H 26 H 113/66 95 11/18/21 07:55 121 H 22 93/67 L 96 11/18/21 07:45 138 H 23 95 11/18/21 07:41 134 H 23 117/70 96 11/18/21 07:36 102 H 11/18/21 07:30 144 H 17 97 11/18/21 07:15 113 H 27 H 96 11/18/21 07:00 111 H 19 95 11/18/21 06:45 108 H 24 94 11/18/21 06:31 110 H 22 120/51 L 97 11/18/21 06:30 115 H 25 H 97 11/18/21 06:15 109 H 20 97 11/18/21 06:00 112 H 23 119/69 93 11/18/21 05:45 104 H 18 95 11/18/21 05:30 114 H 25 H 110/77 97 11/18/21 05:00 103 H 27 H 99/62 L 97 11/18/21 04:01 36.7 C 89 20 99/56 L 97 11/18/21 04:00 116 H 25 H 95 11/18/21 03:32 94 H 21 94/56 L 95 11/18/21 03:31 100 H 30 H 96 11/18/21 03:01 106 H 17 84/70 L 96 11/18/21 03:00 110 H 15 97 11/18/21 02:30 112 H 27 H 91/50 L 96 11/18/21 02:00 97 H 25 H 88/52 L 97 11/18/21 01:30 100 H 19 93/58 L 97 11/18/21 01:00 95 H 26 H 93/60 L 95 Critical Care Results & Data Vital Signs (Past 12 Hours) Vital Signs Temp Pulse Resp BP Pulse Ox 11/18/21 12:48 37 C 11/18/21 12:45 91 H 12 98/57 L 11/18/21 12:40 104 H 23 11/18/21 12:39 94 H 24 100/52 L 11/18/21 12:38 101 H 26 H 53/37 L 11/18/21 12:30 103 H 25 H 11/18/21 12:20 95 H 25 H 97 11/18/21 12:15 93 H 23 98/57 L 97 11/18/21 12:10 110 H 27 H 97 11/18/21 12:00 102 H 24 96/55 L 96 11/18/21 11:50 110 H 20 97 11/18/21 11:45 92 H 15 95/60 L 97 11/18/21 11:40 96 H 23 95 11/18/21 11:31 108 H 22 105/63 97 11/18/21 11:30 100 H 18 98 11/18/21 11:23 114 H 28 H 102/59 L 98 11/18/21 11:20 106 H 17 98 11/18/21 11:17 100 H 25 H 80/53 L 98 11/18/21 11:15 82 21 92/56 L 99 11/18/21 11:10 97 H 19 97 11/18/21 11:00 98 H 21 96/56 L 97 11/18/21 10:50 78 29 H 98 11/18/21 10:45 112 H 29 H 100/65 98 11/18/21 10:40 84 18 98 11/18/21 10:34 89 24 93/51 L 97 11/18/21 10:30 98 H 20 98 11/18/21 10:23 96 H 30 H 95/60 L 98 11/18/21 10:20 99 H 26 H 97 11/18/21 10:16 103 H 18 96/56 L 97 11/18/21 10:10 85 28 H 96 11/18/21 10:00 88 25 H 95/63 L 97 11/18/21 09:51 106 H 28 H 95/51 L 96 11/18/21 09:50 106 H 25 H 89/53 L 96 11/18/21 09:40 98 H 22 95 11/18/21 09:30 106 H 26 H 92/67 L 96 11/18/21 09:20 116 H 22 97 11/18/21 09:17 116 H 28 H 94/63 L 95 11/18/21 09:15 97 H 25 H 75/63 L 96 11/18/21 09:10 98 H 25 H 104/62 96 11/18/21 09:01 101 H 29 H 116/71 96 11/18/21 09:00 145 H 25 H 96 11/18/21 08:50 101 H 25 H 96 11/18/21 08:48 116 H 30 H 107/69 96 11/18/21 08:40 112 H 23 96 11/18/21 08:31 114 H 24 95/58 L 96 11/18/21 08:30 106 H 22 96 11/18/21 08:20 106 H 20 96 11/18/21 08:15 113 H 19 96 11/18/21 08:00 37 C 113 H 26 H 113/66 95 11/18/21 07:55 121 H 22 93/67 L 96 11/18/21 07:45 138 H 23 95 11/18/21 07:41 134 H 23 117/70 96 11/18/21 07:36 102 H 11/18/21 07:30 144 H 17 97 11/18/21 07:15 113 H 27 H 96 11/18/21 07:00 111 H 19 95 11/18/21 06:45 108 H 24 94 11/18/21 06:31 110 H 22 120/51 L 97 11/18/21 06:30 115 H 25 H 97 11/18/21 06:15 109 H 20 97 11/18/21 06:00 112 H 23 119/69 93 11/18/21 05:45 104 H 18 95 11/18/21 05:30 114 H 25 H 110/77 97 11/18/21 05:00 103 H 27 H 99/62 L 97 11/18/21 04:01 36.7 C 89 20 99/56 L 97 11/18/21 04:00 116 H 25 H 95 11/18/21 03:32 94 H 21 94/56 L 95 11/18/21 03:31 100 H 30 H 96 11/18/21 03:01 106 H 17 84/70 L 96 11/18/21 03:00 110 H 15 97 11/18/21 02:30 112 H 27 H 91/50 L 96 11/18/21 02:00 97 H 25 H 88/52 L 97 11/18/21 01:30 100 H 19 93/58 L 97 Lab & Micro Results (Past 24 Hours) RBC 3.19 M/uL (4.7-6.1) L 11/18/21 WBC 3.97 K/uL (4.8-10.8) L 11/18/21 Hgb 9.8 g/dL (14.0-18.0) L 11/18/21 Hct 27.9 % (42-52) L 11/18/21 MCV 87.5 fL (80-100) 11/18/21 MCH 30.7 pg (25-34) 11/18/21 MCHC 35.1 g/dL (32-36) 11/18/21 RDW Standard Deviation 43.9 fL (36.4-46.3) 11/18/21 RDW Coefficient of Variation 13.7 % (11.5-14.5) 11/18/21 Plt Count 69 K/uL (130-400) L 11/18/21 MPV 12.6 fL (7.4-10.4) H 11/18/21 ANC 2.82 K/uL (1.4-6.5) 11/18/21 ALC 0.80 K/uL (1.2-3.4) L 11/18/21 Neutrophils % (Manual) 71.1 % 11/18/21 Lymphocytes % (Manual) 20.2 % 11/18/21 Monocytes % (Manual) 6.1 % 11/18/21 Eosinophils % (Manual) 2.6 % 11/18/21 Neutrophils # (Manual) 2.82 K/uL (1.4-6.5) 11/18/21 Lymphocytes # (Manual) 0.80 K/uL (1.2-3.4) L 11/18/21 Monocytes # (Manual) 0.24 K/uL (0.11-0.59) 11/18/21 Eosinophils # (Manual) 0.10 K/uL (0-0.5) 11/18/21 Echinocytes 3+ 11/18/21 Na 133 mmol/L (136-145) L 11/18/21 K 3.5 mmol/L (3.5-5.1) 11/18/21 Cl 108 mmol/L (98-107) H 11/18/21 CO2 16 mmol/L (21-32) L 11/18/21 Anion Gap 9 (3-11) 11/18/21 BUN 39 mg/dl (6-23) H 11/18/21 Creatinine 2.38 mg/dl (0.6-1.4) H 11/18/21 Estimated GFR ( Amer) 29.0 ml/min 11/18/21 Estimated GFR (Non-Af Amer) 25.0 ml/min 11/18/21 BUN/Creatinine Ratio 16.4 (10-20) 11/18/21 Glu 113 mg/dl (70-99(Fasting)) H 11/18/21 Ca 7.8 mg/dl (8.5-10.1) L 11/18/21 Phosphorus Level 2.3 mg/dl (2.5-4.9) L 11/18/21 Total Bilirubin 0.9 mg/dl (0.2-1.0) 11/18/21 Direct Bilirubin 0.1 mg/dl (0-0.2) 11/18/21 AST 108 U/L (13-39) H 11/18/21 ALT 69 U/L (7-52) H 11/18/21 Alkaline Phosphatase 66 U/L (34-104) 11/18/21 TP 5.5 gm/dl (6.0-8.3) L 11/18/21 Albumin 3.1 gm/dl (3.4-5.0) L 11/18/21 Mg 2.0 mg/dl (1.7-2.4) 11/18/21 05:59 11/18/21 Calcium Level 7.8 mg/dl (8.5-10.1) L 11/18/21 05:59 11/18/21 Microbiology 11/16/21 10:40 Aerobic Blood Culture - Preliminary Blood No growth in Aerobic bottle after 48 hours. Anaerobic Blood Culture - Preliminary No growth in Anaerobic bottle after 48 hours. 11/16/21 10:45 Aerobic Blood Culture - Preliminary Blood No growth in Aerobic bottle after 48 hours. Anaerobic Blood Culture - Preliminary No growth in Anaerobic bottle after 48 hours. 11/16/21 10:35 Urine Culture - Final Urine,Clean Catch Three types of organisms present, all low counts probable skin shanti. No further identifications or sensitivities to follow. I & O Totals 24 Hours 11/17/21 11/18/21 11/19/21 06:59 06:59 06:59 Intake Total 5336.000 / 5336.000 4253.927 / 4253.927 953.907 / 953.907 Output Total 302 / 302 205 / 205 350 / 350 Balance 5034.000 / 5034.000 4048.927 / 4048.927 603.907 / 603.907 Cumulative 11/16/21 10:11 thru 11/18/21 12:00 Intake Total 67622.834 Output Total 857 Balance 9686.834 RT Ventilator Mngmt (Last Documented) Ventilator Ordered Settings Respiratory Rate 12 11/18/21 12:45 Ventilator - PT Measurements Respiratory Rate 12 Coding Level of Care Code Critical Care 1st 30-74 mins Diagnoses Severe sepsis A41.9; R65.20 Atrial fibrillation with RVR I48.91 MERNA (acute kidney injury) N17.9 Sepsis A41.9 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
[2021-11-18] MEDS ORDERED: POTASSIUM CHLORIDE CRTAB 20 MEQ TABCR PO STA (12:48)
[2021-11-18] MEDS ORDERED: HYDROCORTISONE SOD 100 MG in SYRINGE 0 ML IV STA (12:49)
[2021-11-18] MEDS: PHENYLEPHRINE HCL 20 MG in DEXTROSE 5% 500 ML IV SCH ×2 (13:04→19:02)
--- NOTE | 2021-11-18 14:18 | Hospitalist Progress Note ---
Date of Service November 18, 2021 Assessment & Plan (1) Sepsis: (2) MERNA (acute kidney injury): (3) Atrial fibrillation with RVR: Plan: Patient is 81 y/o M with PMH HTN, prostate CA, CAD s/p CABG, HTN, dyslipidemia, CKD III presented to ER with c/o fatigue x several days. Couple of loose stools, nausea yesterday. Denies CP, SOB, abdominal pain. C/O dysuria and urinary frequency past couple of days. In ER patient febrile 38.3C, tachycardic, hypotensive. WBC: 2.7 (baseline in 5s), thrombocytopenia, elevated LFTs, lactate: 2.5, procalcitonin: 2.3, UA without leukocytes, nitrites or bacteria. Negative SARS-CoV-2 NAAT test CXR: no active disease in the chest. CT ABD/PELVIS: Layering gallstones including stones in the cystic duct. There is mild gallbladder wall thickening.If there is clinical concern for cholecystitis, ultrasound or HIDA scan can be performed. In ER resuscitated with IVF with continued hypotension. Started on pressors and broad spectrum abx. 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 MERNA-improved- Cr: 3.6->3.1->2.7>2.4 Baseline ~1.6; Monitor renal functions, avoid nephrotoxic agents when possible Afib with RVR, newly diagnosed in ED- suspected secondary to his severe sepsis - Home BB on hold due to hypotension requiring pressors - Cardiology following- holding off on anticoag due to need for upcoming invasive GI procedures Hyponatremia- mild, improving from 127->131>133 Hematochezia- patient states from radiation treatment. cont to monitor, apprec GI recs. Elevated trop- likely demand ischemia, trop trend flat, no chest pain, cardio following-no further workup at this time. HTN- Hold home lisinopril as currently hypotensive and on pressor CAD S/p CABG in 2013 Prostate CA S/p radiation, previous hormone therapy- Hold home silodosin for now DVT Prophylaxis- Heparin SQ Dispo- On ICU, on pressor Full [facility] and Anticipated Discharge Date Admission Date: November 16, 2021 Subjective 81 yo M presented with septic shock on arrival, thought secondary to a bililary source. Stones found in gallbladder and cystic duct on imaging, however, limitations with MRCP as patient is claustrophobic and declines and couldn't perform HIDA while on pressors. just had pressors weaned off. BP 85/54, HR 96 feels improved since resuscitation efforts and broad spectrum abx this weekend new onset afib with RVR, present on the monitor, and cardiology following Patient is asymptomatic from an afib standpoint Denies abdominal pain and is tolerating a full liquid diet. at bedside and all questions were answered to their satisfaction. Review of Systems Review of Systems: All systems reviewed negative except as indicated above. Physical Exam Physical Exam: CONSTITUTIONAL: WNWD, vitals as above, generally well- appearing, NAD EYES: normal conjunctivae, no scleral icterus ENT: external ear and nose normal, MMM NECK: trachea midline, RESPIRATORY: clear to auscultation bilaterally, no crackles, rales or wheezes, normal respiratory effort CARDIOVASCULAR: regular rate and rhythm, S1 and 2 heard without murmurs, gallops or rubs, no JVD, no peripheral edema, CHEST: inspection of chest was normal GASTROINTESTINAL: soft, nontender, ND, no guarding MUSCULOSKELETAL: strength 5/5 throughout, head is normocephalic and atraumatic, SKIN: warm and dry, NEUROLOGIC: CN 2-12 grossly intact, no sensory deficit, normal cognition, normal speech, no tremor PSYCHIATRIC: alert cooperative and oriented to person, place and time. Euthymic mood, makes good eye contact, language grossly intact, recent and remote memory grossly intact. Results & Data Results & Data ([facility]) Vital Signs (Past 12 Hours) Vital Signs Temp Pulse Resp BP Pulse Ox 11/18/21 12:48 37 C 11/18/21 12:45 91 H 12 98/57 L 11/18/21 12:40 104 H 23 11/18/21 12:39 94 H 24 100/52 L 11/18/21 12:38 101 H 26 H 53/37 L 11/18/21 12:30 103 H 25 H 11/18/21 12:20 95 H 25 H 97 11/18/21 12:15 93 H 23 98/57 L 97 11/18/21 12:10 110 H 27 H 97 11/18/21 12:00 102 H 24 96/55 L 96 11/18/21 11:50 110 H 20 97 11/18/21 11:45 92 H 15 95/60 L 97 11/18/21 11:40 96 H 23 95 11/18/21 11:31 108 H 22 105/63 97 11/18/21 11:30 100 H 18 98 11/18/21 11:23 114 H 28 H 102/59 L 98 11/18/21 11:20 106 H 17 98 11/18/21 11:17 100 H 25 H 80/53 L 98 11/18/21 11:15 82 21 92/56 L 99 11/18/21 11:10 97 H 19 97 11/18/21 11:00 98 H 21 96/56 L 97 11/18/21 10:50 78 29 H 98 11/18/21 10:45 112 H 29 H 100/65 98 11/18/21 10:40 84 18 98 11/18/21 10:34 89 24 93/51 L 97 11/18/21 10:30 98 H 20 98 11/18/21 10:23 96 H 30 H 95/60 L 98 11/18/21 10:20 99 H 26 H 97 11/18/21 10:16 103 H 18 96/56 L 97 11/18/21 10:10 85 28 H 96 11/18/21 10:00 88 25 H 95/63 L 97 11/18/21 09:51 106 H 28 H 95/51 L 96 11/18/21 09:50 106 H 25 H 89/53 L 96 11/18/21 09:40 98 H 22 95 11/18/21 09:30 106 H 26 H 92/67 L 96 11/18/21 09:20 116 H 22 97 11/18/21 09:17 116 H 28 H 94/63 L 95 11/18/21 09:15 97 H 25 H 75/63 L 96 11/18/21 09:10 98 H 25 H 104/62 96 11/18/21 09:01 101 H 29 H 116/71 96 11/18/21 09:00 145 H 25 H 96 11/18/21 08:50 101 H 25 H 96 11/18/21 08:48 116 H 30 H 107/69 96 11/18/21 08:40 112 H 23 96 11/18/21 08:31 114 H 24 95/58 L 96 11/18/21 08:30 106 H 22 96 11/18/21 08:20 106 H 20 96 11/18/21 08:15 113 H 19 96 11/18/21 08:00 37 C 113 H 26 H 113/66 95 11/18/21 07:55 121 H 22 93/67 L 96 11/18/21 07:45 138 H 23 95 11/18/21 07:41 134 H 23 117/70 96 11/18/21 07:36 102 H 11/18/21 07:30 144 H 17 97 11/18/21 07:15 113 H 27 H 96 11/18/21 07:00 111 H 19 95 11/18/21 06:45 108 H 24 94 11/18/21 06:31 110 H 22 120/51 L 97 11/18/21 06:30 115 H 25 H 97 11/18/21 06:15 109 H 20 97 11/18/21 06:00 112 H 23 119/69 93 11/18/21 05:45 104 H 18 95 11/18/21 05:30 114 H 25 H 110/77 97 11/18/21 05:00 103 H 27 H 99/62 L 97 11/18/21 04:01 36.7 C 89 20 99/56 L 97 11/18/21 04:00 116 H 25 H 95 11/18/21 03:32 94 H 21 94/56 L 95 11/18/21 03:31 100 H 30 H 96 11/18/21 03:01 106 H 17 84/70 L 96 11/18/21 03:00 110 H 15 97 11/18/21 02:30 112 H 27 H 91/50 L 96 Laboratory Results Short CBC 11/18/21 Range/Units 05:59 WBC 3.97 L (4.8-10.8) K/uL Hgb 9.8 L (14.0-18.0) g/dL Hct 27.9 L (42-52) % Plt Count 69 L (130-400) K/uL BMP 11/18/21 05:59 Sodium 133 L Potassium 3.5 Chloride 108 H Carbon Dioxide 16 L BUN 39 H Creatinine 2.38 H D Glucose 113 H Calcium 7.8 L Liver Function 11/18/21 Range/Units 06:00 Total Bilirubin 0.9 (0.2-1.0) mg/dl Direct Bilirubin 0.1 (0-0.2) mg/dl AST 108 H (13-39) U/L ALT 69 H (7-52) U/L Alkaline Phosphatase 66 (34-104) U/L Albumin 3.1 L (3.4-5.0) gm/dl Medications Administered Current Inpatient Medications Atorvastatin Calcium (Atorvastatin 40 Mg Tab) 40 mg PO PM [facility] Stop: 12/16/21 20:59 Last Admin: 11/17/21 21:02 Dose: 40 mg Documented by: Bimatoprost (Bimatoprost 0.01% Op Soln 2.5 Ml Btl) 1 drops OP QPM [facility] Stop: 12/16/21 20:59 Last Admin: 11/17/21 21:02 Dose: 1 drops Documented by: Ferrous Sulfate (Ferrous Sulfate 325 Mg Tab) 325 mg PO QAM [facility] Stop: 12/17/21 08:59 Last Admin: 11/18/21 07:51 Dose: 325 mg Documented by: Heparin Sodium (Porcine) (Heparin Sod 5,000 Unit/0.5 Ml Vial) 5,000 units SQ Q8 [facility] Stop: 12/16/21 21:59 Last Admin: 11/17/21 21:01 Dose: 5,000 units Documented by: Doxycycline Hyclate 100 mg/ (Dextrose) 110 mls @ 50 mls/hr IV Q12 [facility] Stop: 11/18/21 22:59 Last Infusion: 11/18/21 10:42 Dose: Infused Documented by: Cefepime HCl 2,000 mg/ Syringe 20 mls @ 5 mls/min IV Q24H [facility]; Protocol Stop: 11/27/21 08:59 Last Admin: 11/18/21 08:22 Dose: 5 mls/min Documented by: Metronidazole (Flagyl) 500 mg in 100 mls @ 100 mls/hr IV Q8H [facility] Stop: 11/26/21 21:59 Last Admin: 11/18/21 13:52 Dose: 100 mls/hr Documented by: Parenteral Electrolytes (Normosol-R) 1,000 mls @ 80 mls/hr IV .[id number] [facility] Stop: 12/17/21 12:14 Last Admin: 11/18/21 13:26 Dose: 125 mls/hr Documented by: Metoprolol Tartrate (Metoprolol Tartrate 25 Mg Tab) 25 mg PO BID [facility] Stop: 12/16/21 20:59 Last Admin: 11/18/21 07:51 Dose: 25 mg Documented by: Miscellaneous (Icu Protocol For Hyperglycemia) 1 ea N/A PRN PRN; Protocol PRN Reason: Hyperglycemia Protocol Stop: 11/18/21 16:20 Pantoprazole Sodium (Pantoprazole 40 Mg Tab) 40 mg PO BID [facility] Stop: 12/18/21 20:59
[2021-11-18] MEDS: PANTOprazole 40 MG TAB PO SCH (21:05)
[2021-11-18] MEDS: BIMATOPROST 0.01% OP SOLN 2.5 ML BTL OP SCH (21:05)
[2021-11-18] MEDS: ATORVASTATIN 40 MG TAB PO SCH (21:05)
[2021-11-19] MEDS: NORMOSOL-R 1,000 ML IV SCH ×2 (05:37→18:25)
[2021-11-19] MEDS: metroNIDAZOLE 500 MG/100 ML BAG IV SCH ×3 (05:38→22:01)
[2021-11-19 06:17] LABS: Hemoglobin 8.6 g/dL (14.0-18.0); Mean Corpuscular Hemoglobin 30.5 pg (25-34); Mean Corpuscular Hgb Conc 34.4 g/dL (32-36); Mean Corpuscular Volume 88.7 fL (80-100); Mean Platelet Volume 12.8 fL (7.4-10.4); Platelet Count 90 K/uL (130-400); RDW Coefficient of Variation 13.5 % (11.5-14.5); RDW Standard Deviation 43.9 fL (36.4-46.3); Red Blood Count 2.82 M/uL (4.7-6.1); White Blood Count 3.96 K/uL (4.8-10.8)
[2021-11-19 06:34] LABS: BUN Creatinine Ratio 15.6 (10-20); Calcium 8.1 mg/dl (8.5-10.1); Creatinine Clr Calc Pharmacy 24.5 ml/min; Est GFR (African American) 28.1 ml/min; Est GFR (Non-African American) 24.2 ml/min; Phosphorus 2.5 mg/dl (2.5-4.9); Potassium 3.9 mmol/L (3.5-5.1)
[2021-11-19 06:39] LABS: Basophils # (auto) 0.02 K/uL (0-0.2); Basophils % (auto) 0.5 %; Echinocytes 1+; Eosinophils # (auto) 0.01 K/uL (0-0.5); Eosinophils % (auto) 0.3 %; Immature Granulocytes # (auto) 0.01 K/uL (0.00-0.02); Immature Granulocytes % (auto) 0.3 %; Lymphocytes # (auto) 1.37 K/uL (1.2-3.4); Lymphocytes % (auto) 34.6 %; Monocytes # (auto) 0.38 K/uL (0.11-0.59); Monocytes % (auto) 9.6 %; Neutrophils # (auto) 2.17 K/uL (1.4-6.5); Neutrophils % (auto) 54.7 %
--- NOTE | 2021-11-19 08:31 | Critical Care Progress Note ---
Date of Service November 19, 2021 Assessment & Plan (1) Severe sepsis: Plan: Reason Critically Ill: 81-year-old male with severe sepsis requiring vasoactive medication administration with atrial fibrillation with rapid ventricular response. PLAN: CV: Atrial fibrillation with rapid ventricular response. Continue IV metoprolol. 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 Fluids/Renal: Hyponatremia: Improved -Suspect secondary to dehydration High gap metabolic acidosis: Improved -Likely related to uremia and most likely sepsis Acute kidney injury: Improved. Continue gentle hydration. ID: Severe sepsis -Continue cefepime, Flagyl, doxycycline -Source considerations: Urinary tract infection, biliary, anaplasmosis: PCR pending GI/Nutrition: Transaminitis: Improved Common bile duct stone -gastroenterology consult -General surgery consult -Nuclear medicine hepatobiliary scan ordered Rectal bleeding -Likely secondary to radiation proctitis -40 mg Protonix twice daily discontinue infusion at this time Heme: Leukopenia -Likely acute phase reaction Thrombocytopenia DVT prophylaxis: Hold chemical ppx. 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 Heart rate mildly elevated this morning to the 120s and 130s. He does carry a history of atrial fibrillation. Blood pressures remained stable off of pressors. He denies any significant abdominal pain at this time. No chest pain, fevers or chills. Review of Systems Review of Systems: All systems reviewed & are unremarkable except as noted in HPI & below Physical Exam Physical Exam: General: Alert. nontoxic. Skin: Warm, dry, Head: Atraumatic Ears, nose, mouth and throat: airway patent Cardiovascular: Normal peripheral perfusion, irregularly irregular with bouts of significant tachycardia Respiratory: no respiratory distress Gastrointestinal: Nontender nondistended Musculoskeletal: No deformity Results & Data Results & Data ([facility]) Vital Signs (Past 12 Hours) Vital Signs Pulse Resp BP Pulse Ox 11/19/21 06:00 106 H 18 111/60 99 11/19/21 05:01 93 H 31 H 89/76 L 11/19/21 05:00 106 H 26 H 11/19/21 04:00 62 21 83/45 L 96 11/19/21 03:00 61 24 92/59 L 93 11/19/21 02:13 123 H 26 H 118/82 99 11/19/21 02:00 108 H 20 95 11/19/21 01:02 81 32 H 86/56 L 93 11/19/21 01:01 72 18 77/31 L 96 11/19/21 01:00 61 24 95 11/19/21 00:00 92 H 22 109/70 98 11/18/21 23:31 116/75 96 11/18/21 23:00 69 25 H 94/74 L 95 11/18/21 22:45 98 H 23 117/69 97 11/18/21 22:15 68 21 111/70 96 11/18/21 22:00 99 H 19 98 11/18/21 21:46 92 H 19 125/62 98 11/18/21 21:00 70 23 130/77 97 11/18/21 20:46 107 H 17 117/92 98 11/18/21 20:32 75 23 112/62 97 Coding Level of Care Code 34561 Subseq Hosp Care Lvl 3 Diagnoses Severe sepsis A41.9; R65.20 Atrial fibrillation with RVR I48.91 MERNA (acute kidney injury) N17.9 Sepsis A41.9 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
[2021-11-19] MEDS: CEFEPIME 2,000 MG in SYRINGE 0 ML IV SCH (08:38)
[2021-11-19] MEDS: PANTOprazole 40 MG TAB PO SCH (08:38)
[2021-11-19] MEDS: METOPROLOL TARTRATE 25 MG TAB PO SCH ×2 (08:39→20:00)
[2021-11-19] MEDS: FERROUS SULFATE 325 MG TAB PO SCH (08:39)
--- NOTE | 2021-11-19 09:50 | Gastroenterology Progress Note ---
Date of Service November 19, 2021 Assessment & Plan (1) Cholelithiasis: (2) Cystic duct calculus: (3) Elevated LFTs: (4) New onset a-fib: Plan: We will keep on clear liquids today HIDA scan If HIDA is negative then will likely need an MRCP to rule out bile duct dilation obstruction. Continue antibiotic coverage for possible cholangitis. Daily LFTs We will continue to follow Admission and Anticipated Discharge Date Admission Date: November 16, 2021 Supervising Physician Co-Signing Physician Notes Attg Add: I interviewed and examined pt, reviewed chart and labs. Pt with resolving sepsis, slightly improved LFTs. A/P: Possible biliary sepsis, biliary obstruction - Follow up HIDA r/o biliary obstruction Subjective 81 yr male Admitted 11/16 w new A-fib, sepsis, gallstones and elevated LFTs. Over the weekend rectal bleeding likely from proctitis. HIDA is pending. Pt prefers not to undergo MRCP (claustrophobia). Review of Systems Review of Systems: ROS: Gen: + weakness, No fevers, No weight loss Eyes: No eye redness, or pain, no recent vision changes Resp: No SOB, no cough Cardio: No palpitations/irregular beats, no chest pain (did not feel any irregular heart beats). Has had weakness, poor exercise tolerance. GI: No abdominal pain (since 4 wks ago), no nausea/vomiting : Denies pain on urination Skin: No jaundice, itching or new rashes Physical Exam Constitutional: well developed, + thin and cooperative Eyes: PERRL, conjunctivae normal, anicteric sclerae ENMT: external ear and nose normal, oropharynx normal Neck: trachea midline, no thyromegaly Respiratory: normal respiratory effort, lungs clear to auscultation normal respiratory effort and able to speak in complete sentences; no respiratory distress, no labored breathing, does not use accessory muscles and no cough Cardiovascular: Rate/Rhythm: regular rate and + irregularly irregular Heart Sounds: no murmur Extremities: no edema Gastrointestinal (Abdomen): normal bowel sounds, soft, nontender, no hepatosplenomegaly Inspection/Auscultation: abdomen normal to inspection and normal bowel sounds; abdomen not distended and no abdominal edema Skin: no rashes, warm and dry normal turgor and + pallor Neurologic: PERRL, EOMI, accommodation nl, no face palsy, no dysarthria awake; not confused Psychiatric: A+Ox3, euthymic affect Orientation: alert, oriented x 3 and cooperative Lymphatic: no cervical or axillary lymphadenopathy Results & Data ([facility]) Vital Signs (Past 12 Hours) Vital Signs Pulse Resp BP Pulse Ox 11/19/21 09:00 94 H 22 104/67 96 11/19/21 08:00 98 H 18 123/69 96 11/19/21 07:00 91 H 24 96 11/19/21 06:00 106 H 18 111/60 99 11/19/21 05:01 93 H 31 H 89/76 L 11/19/21 05:00 106 H 26 H 11/19/21 04:00 62 21 83/45 L 96 11/19/21 03:00 61 24 92/59 L 93 11/19/21 02:13 123 H 26 H 118/82 99 11/19/21 02:00 108 H 20 95 11/19/21 01:02 81 32 H 86/56 L 93 11/19/21 01:01 72 18 77/31 L 96 11/19/21 01:00 61 24 95 11/19/21 00:00 92 H 22 109/70 98 11/18/21 23:31 116/75 96 11/18/21 23:00 69 25 H 94/74 L 95 11/18/21 22:45 98 H 23 117/69 97 11/18/21 22:15 68 21 111/70 96 11/18/21 22:00 99 H 19 98 11/18/21 21:46 92 H 19 125/62 98 Laboratory Results WBC 3, Hb 8.6, hematocrit 25, platelets 90, sodium 137, potassium 3.9, chloride 110, CO2 18, BUN 38, CR 2.4, glucose 118 T bili 1.4 yesterday to 0.9 today, AST 132 yesterday to 108 today, ALT 75-69, alkaline phos is remain normal today it is 66 lipase was 145 yesterday today it is 159. Diagnostic Findings Noncontrast CT 11/16/2021: Layering gallstones including stones in the cystic duct. There is mild gallbladder wall thickening. If there is clinical concern for cholecystitis, ultrasound or HIDA scan can be performed.
--- NOTE | 2021-11-19 13:28 | Electrocardiogram Report ---
Test Reason : Blood Pressure : / mmHG Vent. Rate : 102 BPM Atrial Rate : 131 BPM P-R Int : 160 ms QRS Dur : 154 ms QT Int : 430 ms P-R-T Axes : 044 -52 009 degrees QTc Int : 560 ms Sinus tachycardia with occasional , and consecutive Premature ventricular complexes Left axis deviation Right bundle branch block Abnormal ECG When compared with ECG of 17-NOV-2021 06:42, Premature ventricular complexes are now Present Confirmed by Fortino Carvajal ([id number]) on 11/19/2021 1:27:38 PM Referred By: Bhaskar Day Confirmed By:Fortino Carvajal
--- NOTE | 2021-11-19 13:54 | Hospitalist Progress Note ---
Date of Service November 19, 2021 Assessment & Plan (1) Sepsis: (2) Atrial fibrillation with RVR: (3) Complaint of melena: (4) Radiation proctitis: (5) Acute kidney injury (MERNA) with acute tubular necrosis (ATN): (6) Elevated LFTs: Plan: Patient is 81 y/o M with PMH HTN, prostate CA, CAD s/p CABG, HTN, dyslipidemia, CKD III presented to ER with c/o fatigue x several days. Couple of loose stools, nausea yesterday. Denies CP, SOB, abdominal pain. C/O dysuria and urinary frequency past couple of days. In ER patient febrile 38.3C, tachycardic, hypotensive. WBC: 2.7 (baseline in 5s), thrombocytopenia, elevated LFTs, lactate: 2.5, procalcitonin: 2.3, UA without leukocytes, nitrites or bacteria. Negative SARS-CoV-2 NAAT test CXR: no active disease in the chest. CT ABD/PELVIS: Layering gallstones including stones in the cystic duct. There is mild gallbladder wall thickening.If there is clinical concern for cholecystitis, ultrasound or HIDA scan can be performed. In ER resuscitated with IVF with continued hypotension. Started on pressors and broad spectrum abx. Peripheral smear unremarkable, negative Lyme, Anaplasma, babesia PCR pending Severe sepsis/septic shock- suspected biliary source - Procal 2.36, WBC 2.7, lact 2.5, LFTs elevated/transaminitis, CXR negative, UA not suggestive of UTI, blood clx negative so far, peripheral smear negative, lyme, babesia and anaplasma negative - CT as above, MRCP could not be done due to claustrophobia, HIDA scan pending - On levophed->phenylephrine-->now off for pressor support -->will downgrade to PCU status - Continue broad spectrum empiric antibiotics for now - GI and general surgery following- HIDA scan pending for morning. Acute blood loss anemia with ongoing hematochezia--Hb 11.2/33-->8.6/25 now. No wthat stools are described as maroon instead of bright red (yesterday) will change oral Protonix to IV twice daily. Definitive management per GI team. Thrombocytopenia 2/2 consumptive process in sepsis. Improved. MERNA likely 2/2 ATN-improved- Cr: 3.6->2.4 Baseline ~1.6; Monitor renal functions, avoid nephrotoxic agents when possible Afib with RVR, newly diagnosed in ED- suspected secondary to his severe sepsis - Home BB on hold due to hypotension requiring pressors - Cardiology following- holding off on anticoag due to GI bleeding. Hyponatremia- resolved Hematochezia- patient states from radiation treatment. This has become more like melena. Plan as above. Elevated trop- likely demand ischemia, trop trend flat, no chest pain, cardio following-no further workup at this time. HTN- cont to hold home lisinopril with elevated creatinine. CAD S/p CABG in 2013 Prostate CA S/p radiation, previous hormone therapy- Hold home silodosin for now DVT Prophylaxis- Heparin SQ-held in setting of GI bleeding and thrombocytopenia. Dispo- transfer to PCU Full Code Carolina Connelly DO [facility] Hospitalist Admission and Anticipated Discharge Date Admission Date: November 16, 2021 Subjective 81 yo M presented with septic shock on arrival, thought secondary to a biliary source. Stones found in gallbladder and cystic duct on imaging, however, limitations with MRCP as patient is claustrophobic and declines and couldn't perform HIDA while on pressors. HIDA scan planned for tomorrow morning Patient denies any abdominal pain and is clinically improved Reports maroon-colored stools and nurse concurs with this Blood per rectum is present with each bowel movement Denies lightheadedness Has not gotten out of bed much Denies shortness of breath Review of Systems Review of Systems: All systems reviewed negative except as indicated above. Physical Exam Physical Exam: CONSTITUTIONAL: WNWD, vitals as above, generally well- appearing, NAD EYES: normal conjunctivae, no scleral icterus ENT: external ear and nose normal, MMM NECK: trachea midline, RESPIRATORY: clear to auscultation bilaterally, no crackles, rales or wheezes, normal respiratory effort CARDIOVASCULAR: regular rate and rhythm, S1 and 2 heard without murmurs, gallops or rubs, no JVD, no peripheral edema, CHEST: inspection of chest was normal GASTROINTESTINAL: soft, nontender, ND, no guarding MUSCULOSKELETAL: strength 5/5 throughout, head is normocephalic and atraumatic, SKIN: warm and dry, NEUROLOGIC: CN 2-12 grossly intact, no sensory deficit, normal cognition, normal speech, no tremor PSYCHIATRIC: alert cooperative and oriented to person, place and time. Euthymic mood, makes good eye contact, language grossly intact, recent and re mote memory grossly intact. Results & Data Results & Data ([facility]) Vital Signs (Past 12 Hours) Vital Signs Pulse Resp BP Pulse Ox 11/19/21 13:00 88 31 H 112/74 99 11/19/21 12:00 79 23 112/71 99 11/19/21 11:00 92 H 22 106/72 98 11/19/21 10:00 83 22 105/61 95 11/19/21 09:00 94 H 22 104/67 96 11/19/21 08:00 98 H 18 123/69 96 11/19/21 07:00 91 H 24 96 11/19/21 06:00 106 H 18 111/60 99 11/19/21 05:01 93 H 31 H 89/76 L 11/19/21 05:00 106 H 26 H 11/19/21 04:00 62 21 83/45 L 96 11/19/21 03:00 61 24 92/59 L 93 11/19/21 02:13 123 H 26 H 118/82 99 11/19/21 02:00 108 H 20 95 Laboratory Results Short CBC 11/19/21 Range/Units 05:28 WBC 3.96 L (4.8-10.8) K/uL Hgb 8.6 L (14.0-18.0) g/dL Hct 25.0 L (42-52) % Plt Count 90 L (130-400) K/uL BMP 11/19/21 05:28 Sodium 137 Potassium 3.9 Chloride 110 H Carbon Dioxide 18 L BUN 38 H Creatinine 2.44 H Glucose 118 H Calcium 8.1 L Medications Administered Current Inpatient Medications Atorvastatin Calcium (Atorvastatin 40 Mg Tab) 40 mg PO PM [facility] Stop: 12/16/21 20:59 Last Admin: 11/18/21 21:05 Dose: 40 mg Documented by: Bimatoprost (Bimatoprost 0.01% Op Soln 2.5 Ml Btl) 1 drops OP QPM [facility] Stop: 12/16/21 20:59 Last Admin: 11/18/21 21:05 Dose: 1 drops Documented by: Ferrous Sulfate (Ferrous Sulfate 325 Mg Tab) 325 mg PO QAM [facility] Stop: 12/17/21 08:59 Last Admin: 11/19/21 08:39 Dose: 325 mg Documented by: Heparin Sodium (Porcine) (Heparin Sod 5,000 Unit/0.5 Ml Vial) 5,000 units SQ Q8 [facility] Stop: 12/16/21 21:59 Last Admin: 11/17/21 21:01 Dose: 5,000 units Documented by: Cefepime HCl 2,000 mg/ Syringe 20 mls @ 5 mls/min IV Q24H [facility]; Protocol Stop: 11/27/21 08:59 Last Admin: 11/19/21 08:38 Dose: 5 mls/min Documented by: Metronidazole (Flagyl) 500 mg in 100 mls @ 100 mls/hr IV Q8H [facility] Stop: 11/26/21 21:59 Last Infusion: 11/19/21 08:07 Dose: Infused Documented by: Parenteral Electrolytes (Normosol-R) 1,000 mls @ 80 mls/hr IV .[id number] [facility] Stop: 12/17/21 12:14 Last Admin: 11/19/21 05:37 Dose: 80 mls/hr Documented by: Metoprolol Tartrate (Metoprolol Tartrate 25 Mg Tab) 25 mg PO BID [facility] Stop: 12/16/21 20:59 Last Admin: 11/19/21 08:39 Dose: 25 mg Documented by: Pantoprazole Sodium (Pantoprazole 40 Mg Tab) 40 mg PO BID [facility] Stop: 12/18/21 20:59 Last Admin: 11/19/21 08:38 Dose: 40 mg Documented by:
--- NOTE | 2021-11-19 15:18 | Cardiology Progress Note ---
Date of Service November 19, 2021 Assessment & Plan (1) Atrial fibrillation with rapid ventricular response: (2) Acute renal failure: (3) Pancytopenia: (4) Septic shock: (5) Elevated LFTs: (6) Cystic duct calculus: (7) CAD (coronary artery disease): Plan: Pt has converted to sinus mechanism with frequent supraventricular ectopy no further cardiac testing or intervention necessary at this time Will hold off on anticoagulation at this time given the need for likely upcoming invasive GI procedures and active bleeding with only SubQ Lovenox risk discussed with patient, in agreement with holding anticoagulation Admission and Anticipated Discharge Date Admission Date: November 16, 2021 Subjective Patient seen and examined, chart reviewed. No cardiac complaints. Still with some rectal discomfort after recent bleeding episode. Telemetry reviewed: Sinus rhythm with frequent supraventricular ectopy and salvos of PSVT Review of Systems Review of Systems: All systems reviewed & are unremarkable except as noted in HPI & below Physical Exam Physical Exam: General: Awake, alert and oriented x 3. No acute distress. HEENT: Normocephalic, atraumatic. Pupils equal, round and reactive to light and accommodation. Extraocular muscles are intact. Anicteric sclera. Moist mucous membranes. Neck: No JVD. No bruit. Cardiovascular: irregularly irregular, unable to appreciate murmur, rub or gallop. Pulmonary: Clear to auscultation bilaterally. No rales, rhonchi, or wheezing. Abdomen: Bowel sounds x 4, soft. No rebound, guarding or tenderness. No organomegaly. Extremities: No clubbing, cyanosis or edema. +2 pedal pulses bilaterally. Skin: Warm and dry. Results & Data ([facility]) Vital Signs (Past 12 Hours) Vital Signs Pulse Resp BP Pulse Ox 11/19/21 13:00 88 31 H 112/74 99 11/19/21 12:00 79 23 112/71 99 11/19/21 11:00 92 H 22 106/72 98 11/19/21 10:00 83 22 105/61 95 11/19/21 09:00 94 H 22 104/67 96 11/19/21 08:00 98 H 18 123/69 96 11/19/21 07:00 91 H 24 96 11/19/21 06:00 106 H 18 111/60 99 11/19/21 05:01 93 H 31 H 89/76 L 11/19/21 05:00 106 H 26 H 11/19/21 04:00 62 21 83/45 L 96 (1) Acute renal failure Acute renal failure type: unspecified Qualified Code(s): N17.9 - Acute kidney failure, unspecified
[2021-11-19] MEDS: ATORVASTATIN 40 MG TAB PO SCH (20:00)
[2021-11-19] MEDS: BIMATOPROST 0.01% OP SOLN 2.5 ML BTL OP SCH (20:00)
[2021-11-19] MEDS: PANTOprazole 40 MG in SYRINGE 0 ML IV SCH (22:01)
[2021-11-20 06:07] LABS: Hematocrit (blood only) 25.9 % (42-52); Hemoglobin 8.9 g/dL (14.0-18.0); Mean Corpuscular Hemoglobin 30.5 pg (25-34); Mean Corpuscular Hgb Conc 34.4 g/dL (32-36); Mean Corpuscular Volume 88.7 fL (80-100); Mean Platelet Volume 11.6 fL (7.4-10.4); Platelet Count 146 K/uL (130-400); RDW Coefficient of Variation 13.9 % (11.5-14.5); RDW Standard Deviation 45.8 fL (36.4-46.3); Red Blood Count 2.92 M/uL (4.7-6.1); White Blood Count 4.89 K/uL (4.8-10.8)
[2021-11-20] MEDS: metroNIDAZOLE 500 MG/100 ML BAG IV SCH ×3 (06:07→21:48)
[2021-11-20 06:32] LABS: Magnesium 1.9 mg/dl (1.7-2.4); Phosphorus 2.5 mg/dl (2.5-4.9)
[2021-11-20 06:35] LABS: Basophils # (auto) 0.02 K/uL (0-0.2); Basophils % (auto) 0.4 %; Eosinophils # (auto) 0.14 K/uL (0-0.5); Eosinophils % (auto) 2.9 %; Immature Granulocytes # (auto) 0.02 K/uL (0.00-0.02); Immature Granulocytes % (auto) 0.4 %; Lymphocytes # (auto) 1.51 K/uL (1.2-3.4); Lymphocytes % (auto) 30.9 %; Monocytes # (auto) 0.49 K/uL (0.11-0.59); Neutrophils # (auto) 2.71 K/uL (1.4-6.5); Neutrophils % (auto) 55.4 %
[2021-11-20] MEDS ORDERED: MoRPHine SULFATE 2 MG/ML CARP ONE (08:57)
--- NOTE | 2021-11-20 10:15 | Nuclear Medicine Report ---
NM hepatobiliary CLINICAL HISTORY: GALLSTONE in the cystic duct with mild gallbladder wall thickening by CT TECHNIQUE: Following the intravenous injection of 4.9 mCi of Tc-99m labeled Technetium 99m mebrofeni n, multiple images of the upper abdomen were obtained in the anterior projection with uptake measurem ents of the gallbladder obtained. Comparison: Comparison is made to CT abdomen pelvis 11/16/2021 FINDINGS: Sequential images demonstrate normal uptake in the liver, common bile duct, and small bowel . Following administration of morphine, the gallbladder is opacified. No defects in uptake are identi fied. IMPRESSION: The gallbladder is visualized following administration of morphine, excluding acute cholecystitis. Reference: Normal gallbladder ejection fraction is greater than 33%. ACT 112: Negative or not required by law. Electronically signed by: Derrell Choi M.D. 11/20/2021 10:14 AM
[2021-11-20] MEDS: PANTOprazole 40 MG in SYRINGE 0 ML IV SCH ×2 (10:18→20:01)
[2021-11-20] MEDS: CEFEPIME 2,000 MG in SYRINGE 0 ML IV SCH (10:18)
[2021-11-20] MEDS: METOPROLOL TARTRATE 25 MG TAB PO SCH ×2 (10:18→20:00)
[2021-11-20] MEDS: FERROUS SULFATE 325 MG TAB PO SCH (10:18)
[2021-11-20 10:33] LABS: BUN Creatinine Ratio 14.9 (10-20); Calcium 8.7 mg/dl (8.5-10.1); Creatinine Clr Calc Pharmacy 27.9 ml/min; Est GFR (African American) 32.7 ml/min; Est GFR (Non-African American) 28.2 ml/min; Potassium 3.8 mmol/L (3.5-5.1)
[2021-11-20 10:42] LABS: Babesia microti DNA Not Detected (Not Detected)
--- NOTE | 2021-11-20 12:04 | Cardiology Progress Note ---
Date of Service November 20, 2021 Assessment & Plan (1) Atrial fibrillation with rapid ventricular response: (2) Acute renal failure: (3) Pancytopenia: (4) Septic shock: (5) Elevated LFTs: (6) Cystic duct calculus: (7) CAD (coronary artery disease): Plan: Pt has converted to sinus mechanism with frequent supraventricular ectopy no further cardiac testing or intervention necessary at this time Will hold off on anticoagulation at this time given the need for likely upcoming invasive GI procedures and active bleeding with only SubQ Lovenox risk discussed with patient, in agreement with holding anticoagulation Admission and Anticipated Discharge Date Admission Date: November 16, 2021 Subjective Patient seen and examined, chart reviewed. at bedside. States he is feeling better today. Continues to deny any cardiac complaints. Telemetry reviewed: Normal sinus rhythm with supraventricular ectopy Review of Systems Review of Systems: All systems reviewed & are unremarkable except as noted in HPI & below Physical Exam Physical Exam: General: Awake, alert and oriented x 3. No acute distress. HEENT: Normocephalic, atraumatic. Pupils equal, round and reactive to light and accommodation. Extraocular muscles are intact. Anicteric sclera. Moist mucous membranes. Neck: No JVD. No bruit. Cardiovascular: irregularly irregular, unable to appreciate murmur, rub or gallop. Pulmonary: Clear to auscultation bilaterally. No rales, rhonchi, or wheezing. Abdomen: Bowel sounds x 4, soft. No rebound, guarding or tenderness. No organomegaly. Extremities: No clubbing, cyanosis or edema. +2 pedal pulses bilaterally. Skin: Warm and dry. Results & Data ([facility]) Vital Signs (Past 12 Hours) Vital Signs Temp Pulse Pulse Pulse Resp BP Pulse Ox 11/20/21 11:35 36.7 C 74 18 139/84 92 11/20/21 10:16 36.4 C L 78 16 140/85 95 11/20/21 07:20 74 11/20/21 03:45 36.6 C 82 18 143/85 H 97 (1) Acute renal failure Acute renal failure type: unspecified Qualified Code(s): N17.9 - Acute kidney failure, unspecified
--- NOTE | 2021-11-20 14:00 | Hospitalist Progress Note ---
Date of Service November 20, 2021 Assessment & Plan (1) Sepsis: (2) Atrial fibrillation with RVR: (3) Complaint of melena: (4) Radiation proctitis: (5) Acute kidney injury (MERNA) with acute tubular necrosis (ATN): (6) Elevated LFTs: (7) Choledocholithiasis: Plan: Patient is 81 y/o M with PMH HTN, prostate CA, CAD s/p CABG, HTN, dyslipidemia, CKD III presented to ER with c/o fatigue x several days. Couple of loose stools, nausea yesterday. Denies CP, SOB, abdominal pain. C/O dysuria and urinary frequency past couple of days. In ER patient febrile 38.3C, tachycardic, hypotensive. WBC: 2.7 (baseline in 5s), thrombocytopenia, elevated LFTs, lactate: 2.5, procalcitonin: 2.3, UA without leukocytes, nitrites or bacteria. Negative SARS-CoV-2 NAAT test CXR: no active disease in the chest. CT ABD/PELVIS: Layering gallstones including stones in the cystic duct. There is mild gallbladder wall thickening.If there is clinical concern for cholecystitis, ultrasound or HIDA scan can be performed. In ER resuscitated with IVF with continued hypotension. Started on pressors and broad spectrum abx. Peripheral smear unremarkable, negative Lyme, Anaplasma PCR pending, babesia PCR negative Severe sepsis/septic shock- suspected biliary source - Procal 2.36, WBC 2.7, lact 2.5, LFTs elevated/transaminitis, CXR negative, UA not suggestive of UTI, blood clx negative so far, peripheral smear negative, - CT as above, MRCP could not be done due to claustrophobia, HIDA scan negative on 11/20 - On levophed->phenylephrine-->now off for pressor support -->will downgrade to PCU status - Continue broad spectrum empiric antibiotics for now - GI and general surgery following -GI plans for EUS/ERCP as needed in am. Acute blood loss anemia with ongoing hematochezia--Hb 11.2/33-->8.9/25 now (low but stable compared to yesterday). Melena described, seems to be intermittent per patient. PPI BID. Definitive management per GI team. Thrombocytopenia 2/2 consumptive process in sepsis. Improved-now normal. MERNA likely 2/2 ATN-continues to improve- Cr: 3.6->2.1 Baseline ~1.6; Monitor renal functions, avoid nephrotoxic agents when possible Afib with RVR, newly diagnosed in ED- suspected secondary to his severe sepsis -cont metoprolol -Cardiology following- holding off on anticoag due to GI bleeding. Converted to sinus rhythm with ectopy. Hyponatremia- resolved Hematochezia- patient states from radiation treatment. This has become more like melena. Plan as above. Elevated trop- likely demand ischemia, trop trend flat, no chest pain, cardio following-no further workup at this time. HTN- cont to hold home lisinopril with elevated creatinine. CAD S/p CABG in 2013 Prostate CA S/p radiation, previous hormone therapy- Hold home silodosin for now DVT Prophylaxis- Heparin SQ-held in setting of GI bleeding and thrombocytopenia. Dispo- cont PCU, likely to home in am following EUS. PT/OT evaluations pending. Full Code Carolina Connelly DO [facility] Hospitalist Admission and Anticipated Discharge Date Admission Date: November 16, 2021 Subjective 81 yo M presented with septic shock on arrival, thought secondary to a biliary source. Stones found in gallbladder and cystic duct on imaging, however, limitations with MRCP as patient is claustrophobic and declines and couldn't pe rform HIDA while on pressors. HIDa normal blood per rectum seems to be less of an issue today he was up and walking around room and is eager to go home denies abdominal pain, CP, SOB or other symptoms awaiting plan per GI Review of Systems Review of Systems: All systems reviewed negative except as indicated above. Physical Exam Physical Exam: CONSTITUTIONAL: WNWD, vitals as above, generally well- appearing, NAD EYES: normal conjunctivae, no scleral icterus ENT: external ear and nose normal, MMM NECK: trachea midline, RESPIRATORY: clear to auscultation bilaterally, no crackles, rales or wheezes, normal respiratory effort CARDIOVASCULAR: regular rate and rhythm, S1 and 2 heard without murmurs, gallops or rubs, no JVD, no peripheral edema, CHEST: inspection of chest was normal GASTROINTESTINAL: soft, nontender, ND, no guarding MUSCULOSKELETAL: strength 5/5 throughout, head is normocephalic and atraumatic, SKIN: warm and dry, NEUROLOGIC: CN 2-12 grossly intact, no sensory deficit, normal cognition, normal speech, no tremor PSYCHIATRIC: alert cooperative and oriented to person, place and time. Euthymic mood, makes good eye contact, language grossly intact, recent and remote memory grossly intact. Results & Data Results & Data ([facility]) Vital Signs (Past 12 Hours) Vital Signs Temp Pulse Pulse Pulse Resp BP Pulse Ox 11/20/21 11:35 36.7 C 74 18 139/84 92 11/20/21 10:16 36.4 C L 78 16 140/85 95 11/20/21 07:20 74 11/20/21 03:45 36.6 C 82 18 143/85 H 97 Laboratory Results Short CBC 11/20/21 Range/Units 05:25 WBC 4.89 (4.8-10.8) K/uL Hgb 8.9 L (14.0-18.0) g/dL Hct 25.9 L (42-52) % Plt Count 146 D (130-400) K/uL BMP 11/20/21 09:54 Sodium 143 Potassium 3.8 Chloride 112 H Carbon Dioxide 21 BUN 32 H Creatinine 2.15 H Glucose 112 H Calcium 8.7 Diagnostic Findings Hepatobiliary Scan Nuclear Medicine 11/20/21 09:45 NM hepatobiliary CLINICAL HISTORY: GALLSTONE in the cystic duct with mild gallbladder wall thickening by CT TECHNIQUE: Following the intravenous injection of 4.9 mCi of Tc-99m labeled Technetium 99m mebrofenin, multiple images of the upper abdomen were obtained in the anterior projection with uptake measurements of the gallbladder obtained. Comparison: Comparison is made to CT abdomen pelvis 11/16/2021 FINDINGS: Sequential images demonstrate normal uptake in the liver, common bile duct, and small bowel. Following administration of morphine, the gallbladder is opacified. No defects in uptake are identified. IMPRESSION: The gallbladder is visualized following administration of morphine, excluding acute cholecystitis. Reference: Normal gallbladder ejection fraction is greater than 33%. ACT 112: Negative or not required by law. Electronically signed by: Derrell Choi M.D. 11/20/2021 10:14 AM Medications Administered Current Inpatient Medications Atorvastatin Calcium (Atorvastatin 40 Mg Tab) 40 mg PO PM [facility] Stop: 12/16/21 20:59 Last Admin: 11/19/21 20:00 Dose: 40 mg Documented by: Bimatoprost (Bimatoprost 0.01% Op Soln 2.5 Ml Btl) 1 drops OP QPM [facility] Stop: 12/16/21 20:59 Last Admin: 11/19/21 20:00 Dose: 1 drops Documented by: Ferrous Sulfate (Ferrous Sulfate 325 Mg Tab) 325 mg PO QAM [facility] Stop: 12/17/21 08:59 Last Admin: 11/20/21 10:18 Dose: 325 mg Documented by: Heparin Sodium (Porcine) (Heparin Sod 5,000 Unit/0.5 Ml Vial) 5,000 units SQ Q8 [facility] Stop: 12/16/21 21:59 Last Admin: 11/17/21 21:01 Dose: 5,000 units Documented by: Cefepime HCl 2,000 mg/ Syringe 20 mls @ 5 mls/min IV Q24H [facility]; Protocol Stop: 11/27/21 08:59 Last Admin: 11/20/21 10:18 Dose: 5 mls/min Documented by: Metronidazole (Flagyl) 500 mg in 100 mls @ 100 mls/hr IV Q8H [facility] Stop: 11/26/21 21:59 Last Admin: 11/20/21 13:41 Dose: 100 mls/hr Documented by: Pantoprazole Sodium 40 mg/ (Syringe) 10 mls @ 5 mls/min IV BID [facility] Stop: 12/19/21 20:59 Last Admin: 11/20/21 10:18 Dose: 5 mls/min Documented by: Metoprolol Tartrate (Metoprolol Tartrate 25 Mg Tab) 25 mg PO BID [facility] Stop: 12/16/21 20:59 Last Admin: 11/20/21 10:18 Dose: 25 mg Documented by:
--- NOTE | 2021-11-20 15:41 | Communication Note ---
Date of Service: November 20, 2021 Pt presented on 11/16 w sepsis - no clear source and A-fib. Imaging with gallstones, cystic duct stone LFTs elevated. HIDA (-) today. Will plan for EGD/EUS/+/-ERCP tomorrow. Please keep NPO after midnight and hold tomorrow's Heparin.
[2021-11-20] MEDS: ATORVASTATIN 40 MG TAB PO SCH (20:00)
[2021-11-20] MEDS: BIMATOPROST 0.01% OP SOLN 2.5 ML BTL OP SCH (20:01)
[2021-11-21] MEDS: metroNIDAZOLE 500 MG/100 ML BAG IV SCH ×3 (05:17→21:29)
[2021-11-21 06:58] LABS: Hematocrit (blood only) 26.6 % (42-52); Hemoglobin 9.2 g/dL (14.0-18.0); Mean Corpuscular Hemoglobin 30.8 pg (25-34); Mean Corpuscular Hgb Conc 34.6 g/dL (32-36); Mean Platelet Volume 11.2 fL (7.4-10.4); Platelet Count 211 K/uL (130-400); RDW Coefficient of Variation 14.1 % (11.5-14.5); RDW Standard Deviation 46.4 fL (36.4-46.3); Red Blood Count 2.99 M/uL (4.7-6.1); White Blood Count 4.59 K/uL (4.8-10.8)
[2021-11-21 07:20] LABS: Albumin Globulin Ratio 1.2 (0.9-2); Albumin Level 3.3 gm/dl (3.4-5.0); BUN Creatinine Ratio 16.5 (10-20); Bilirubin,Total 0.9 mg/dl (0.2-1.0); Calcium 8.5 mg/dl (8.5-10.1); Creatinine Clr Calc Pharmacy 32.9 ml/min; Est GFR (Non-African American) 34.6 ml/min; Globulin 2.7 gm/dl (2.5-4.0); Potassium 3.7 mmol/L (3.5-5.1)
[2021-11-21] MEDS: FERROUS SULFATE 325 MG TAB PO SCH (09:17)
[2021-11-21] MEDS: CEFEPIME 2,000 MG in SYRINGE 0 ML IV SCH ×2 (09:18→20:41)
[2021-11-21] MEDS: METOPROLOL TARTRATE 25 MG TAB PO SCH ×2 (09:18→20:44)
--- NOTE | 2021-11-21 09:26 | Gastroenterology Progress Note ---
Date of Service November 21, 2021 Assessment & Plan (1) Cholelithiasis: (2) Cystic duct calculus: (3) Elevated LFTs: (4) New onset a-fib: Plan: EUS +/- ERCP today by Dr. Snowden. Not anticoagulated. Continue broad spectrum antibiotics. Also had rectal bleeding over the weekend, likely from radiation proctitis - seems to have decreased/resolved w/o significant drop in Hb/Hct. May need OP colonoscopy for tx but can be arranged as OP by PCP if deemed necessary at that time. Admission and Anticipated Discharge Date Admission Date: November 16, 2021 Supervising Physician Co-Signing Physician Notes I performed a history and physical examination of the patient today, including specifically on physical exam - soft abdomen. I have discussed the patient's management with the advanced practitioner. Please refer to the nurse practitioner's note for the documented findings and plan of care. EUS/ERCP today Patient was explained in detail regarding risks, benefits, limitations and alternatives of the above endoscopic procedure. Risks of intravenous sedation used for procedure were also explained. Risks include, but not limited to perforation, bleeding, infection, respiratory distress, cardiac arrest and . Patient is also aware about the possibility of missed lesion. Patient's questions were answered. The patient verbalized understanding the information and agreed to undergo the procedure. Subjective 81 yr old admitted 11/16 w sepsis, new A-fib was hypotensive. Imaging w gallstones and cystic duct stone. Unable to do MRCP severe claustrophobia). Still no abd pain. Feels well. Review of Systems Review of Systems: ROS: Gen: weakness - resolved, No fevers, No weight loss Eyes: No eye redness, or pain, no recent vision changes Resp: No SOB, no cough Cardio: No palpitations/irregular beats, no chest pain (did not feel any irregular heart beats w A-fib). Has had weakness, poor exercise tolerance. GI: No abdominal pain (since 4 wks ago), no nausea/vomiting : Denies pain on urination Skin: No jaundice, itching or new rashes Physical Exam Constitutional: well developed, + thin and cooperative Eyes: PERRL, conjunctivae normal, anicteric sclerae ENMT: external ear and nose normal, oropharynx normal Neck: trachea midline, no thyromegaly Respiratory: normal respiratory effort, lungs clear to auscultation normal respiratory effort and able to speak in complete sentences; no respiratory distress, no labored breathing, does not use accessory muscles and no cough Cardiovascular: Rate/Rhythm: regular rate and + irregularly irregular Heart Sounds: no murmur Extremities: no edema Gastrointestinal (Abdomen): normal bowel sounds, soft, nontender, no hepatosplenomegaly Inspection/Auscultation: abdomen normal to inspection and normal bowel sounds; abdomen not distended and no abdominal edema Skin: no rashes, warm and dry normal turgor and + pallor Neurologic: PERRL, EOMI, accommodation nl, no face palsy, no dysarthria awake; not confused Psychiatric: A+Ox3, euthymic affect Orientation: alert, oriented x 3 and cooperative Lymphatic: no cervical or axillary lymphadenopathy Results & Data ([facility]) Vital Signs (Past 12 Hours) Vital Signs Temp Pulse Pulse Resp BP Pulse Ox 11/21/21 07:29 36.7 C 77 18 161/81 H 97 11/21/21 03:43 36.8 C 88 18 111/92 97 11/20/21 23:36 61 11/20/21 23:14 36.6 C 75 18 131/72 99 Laboratory Results WBC 4.5, Hb 9.2, Hct 26, Plts 211, Na 141, K 3.7, Cl 22, CO2 6, NUN 30, Cr 1.82, glucose 108 T Bili 0.9, AST 110, ALT 73, Alk Phos 71 INR 1.1 Diagnostic Findings HIDA 11/16/21: The gallbladder is visualized following administration of morphine, excluding acute cholecystitis.Normal gallbladder ejection fraction is greater than 33%. CTAP 11/16/21: Layering gallstones including stones in the cystic duct. There is mild gallbladder wall thickening. If there is clinical concern for cholecystitis, ultrasound or HIDA scan can be performed.
[2021-11-21] MEDS: PANTOprazole 40 MG in SYRINGE 0 ML IV SCH ×2 (10:00→20:41)
--- NOTE | 2021-11-21 13:09 | Hospitalist Progress Note ---
Date of Service November 21, 2021 Assessment & Plan (1) Sepsis: (2) Atrial fibrillation with RVR: (3) Complaint of melena: (4) Radiation proctitis: (5) Acute kidney injury (MERNA) with acute tubular necrosis (ATN): (6) Elevated LFTs: (7) Choledocholithiasis: Plan: Patient is 81 y/o M with PMH HTN, prostate CA, CAD s/p CABG, HTN, dyslipidemia, CKD III presented to ER with c/o fatigue x several days. Couple of loose stools, nausea yesterday. Denies CP, SOB, abdominal pain. C/O dysuria and urinary frequency past couple of days. In ER patient febrile 38.3C, tachycardic, hypotensive. WBC: 2.7 (baseline in 5s), thrombocytopenia, elevated LFTs, lactate: 2.5, procalcitonin: 2.3, UA without leukocytes, nitrites or bacteria. Negative SARS-CoV-2 NAAT test CXR: no active disease in the chest. CT ABD/PELVIS: Layering gallstones including stones in the cystic duct. There is mild gallbladder wall thickening.If there is clinical concern for cholecystitis, ultrasound or HIDA scan can be performed. In ER resuscitated with IVF with continued hypotension. Started on pressors and broad spectrum abx. Peripheral smear unremarkable, negative Lyme, Anaplasma PCR pending, babesia PCR negative 11/21: plan for EUS plus or minus ERCP later today. Possible discharge after procedure. Severe sepsis/septic shock- suspected biliary source - Procal 2.36, WBC 2.7, lact 2.5, LFTs elevated/transaminitis, CXR negative, UA not suggestive of UTI, blood clx negative so far, peripheral smear negative, - CT as above, MRCP could not be done due to claustrophobia, HIDA scan negative on 11/20 - On levophed->phenylephrine-->stable off for pressor support - Continue cefepime and flagyl Day 7 -GI plans for EUS/ERCP today Acute blood loss anemia with ongoing hematochezia--Hb 11.2/33-->8.9/25 now (low but stable compared to yesterday). Melena described, seems to be intermittent per patient. PPI BID. Definitive management per GI team likely a outpatient. Thrombocytopenia 2/2 consumptive process in sepsis resolved. MERNA likely 2/2 ATN-resolved to 1.8 today Afib with RVR, newly diagnosed in ED- suspected secondary to his severe sepsis -cont metoprolol -Cardiology following- holding off on anticoag due to GI bleeding. Converted to sinus rhythm with ectopy. Hyponatremia- resolved Hematochezia- patient states from radiation treatment. This has become more like melena. Plan as above. Elevated trop- likely demand ischemia, trop trend flat, no chest pain, cardio following-no further workup at this time. HTN- cont to hold home lisinopril with elevated creatinine. CAD S/p CABG in 2013 Prostate CA S/p radiation, previous hormone therapy- Hold home silodosin for now DVT Prophylaxis- Heparin SQ-held in setting of GI bleeding and thrombocytopenia. Dispo- cont PCU, likely to home in am following EUS. PT/OT evaluations pending. Full Code Carolina Connelly DO [facility] Hospitalist Admission and Anticipated Discharge Date Admission Date: November 16, 2021 Subjective 81 yo M presented with septic shock on arrival, thought secondary to a biliary source. Stones found in gallbladder and cystic duct on imaging, however, limitations with MRCP as patient is claustrophobic and declines and couldn't perform HIDA while on pressors. Still having hematochezia Plan for EUS/ERCP later this afternoon denies abdominal pain, CP, SOB or other symptoms Review of Systems Review of Systems: All systems reviewed negative except as indicated above. Physical Exam Physical Exam: CONSTITUTIONAL: WNWD, vitals as above, generally well- appearing, NAD EYES: normal conjunctivae, no scleral icterus ENT: external ear and nose normal, MMM NECK: trachea midline, RESPIRATORY: clear to auscultation bilaterally, no crackles, rales or wheezes, normal respiratory effort CARDIOVASCULAR: regular rate and rhythm, S1 and 2 heard without murmurs, gallops or rubs, no JVD, no peripheral edema, CHEST: inspection of chest was normal GASTROINTESTINAL: soft, nontender, ND, no guarding MUSCULOSKELETAL: strength 5/5 throughout, head is normocephalic and atraumatic, SKIN: warm and dry, NEUROLOGIC: CN 2-12 grossly intact, no sensory deficit, normal cognition, normal speech, no tremor PSYCHIATRIC: alert cooperative and oriented to person, place and time. Euthymic mood, makes good eye contact, language grossly intact, recent and remote memory grossly intact. Results & Data Results & Data ([facility]) Vital Signs (Past 12 Hours) Vital Signs Temp Pulse Pulse Pulse Resp BP BP 11/21/21 11:27 36.8 C 80 16 129/90 11/21/21 08:00 85 11/21/21 07:29 36.7 C 77 18 161/81 H 11/21/21 03:43 36.8 C 88 18 111/92 Pulse Ox 11/21/21 11:27 97 11/21/21 08:00 11/21/21 07:29 97 11/21/21 03:43 97 Laboratory Results Short CBC 11/21/21 Range/Units 06:23 WBC 4.59 L (4.8-10.8) K/uL Hgb 9.2 L (14.0-18.0) g/dL Hct 26.6 L (42-52) % Plt Count 211 (130-400) K/uL BMP 11/21/21 06:23 Sodium 141 Potassium 3.7 Chloride 113 H Carbon Dioxide 22 BUN 30 H Creatinine 1.82 H D Glucose 108 H Calcium 8.5 Liver Function 11/21/21 Range/Units 06:23 Total Bilirubin 0.9 (0.2-1.0) mg/dl AST 110 H (13-39) U/L ALT 73 H (7-52) U/L Alkaline Phosphatase 71 (34-104) U/L Albumin 3.3 L (3.4-5.0) gm/dl Diagnostic Findings Hepatobiliary Scan Nuclear Medicine 11/20/21 09:45 NM hepatobiliary CLINICAL HISTORY: GALLSTONE in the cystic duct with mild gallbladder wall thickening by CT TECHNIQUE: Following the intravenous injection of 4.9 mCi of Tc-99m labeled Technetium 99m mebrofenin, multiple images of the upper abdomen were obtained in the anterior projection with uptake measurements of the gallbladder obtained. Comparison: Comparison is made to CT abdomen pelvis 11/16/2021 FINDINGS: Sequential images demonstrate normal uptake in the liver, common bile duct, and small bowel. Following administration of morphine, the gallbladder is opacified. No defects in uptake are identified. IMPRESSION: The gallbladder is visualized following administration of morphine, excluding acute cholecystitis. Reference: Normal gallbladder ejection fraction is greater than 33%. ACT 112: Negative or not required by law. Electronically signed by: Derrell Choi M.D. 11/20/2021 10:14 AM Medications Administered Current Inpatient Medications Atorvastatin Calcium (Atorvastatin 40 Mg Tab) 40 mg PO PM HUMZA Stop: 12/16/21 20:59 Last Admin: 11/20/21 20:00 Dose: 40 mg Documented by: Bimatoprost (Bimatoprost 0.01% Op Soln 2.5 Ml Btl) 1 drops OP QPM HUMZA Stop: 12/16/21 20:59 Last Admin: 11/20/21 20:01 Dose: 1 drops Documented by: Ferrous Sulfate (Ferrous Sulfate 325 Mg Tab) 325 mg PO QAM HUMZA Stop: 12/17/21 08:59 Last Admin: 11/21/21 09:17 Dose: Not Given Documented by: Metronidazole (Flagyl) 500 mg in 100 mls @ 100 mls/hr IV Q8H HUMZA Stop: 11/26/21 21:59 Last Infusion: 11/21/21 06:20 Dose: Infused Documented by: Pantoprazole Sodium 40 mg/ (Syringe) 10 mls @ 5 mls/min IV BID HUMZA Stop: 12/19/21 20:59 Last Admin: 11/21/21 10:00 Dose: 5 mls/min Documented by: Cefepime HCl 2,000 mg/ Syringe 20 mls @ 5 mls/min IV Q12H [facility]; Protocol Stop: 11/27/21 08:59 Last Admin: 11/21/21 09:18 Dose: 5 mls/min Documented by: Metoprolol Tartrate (Metoprolol Tartrate 25 Mg Tab) 25 mg PO BID HUMZA Stop: 12/16/21 20:59 Last Admin: 11/21/21 09:18 Dose: 25 mg Documented by:
[2021-11-21] MEDS ORDERED: fentaNYL citrate 100 MCG/2 ML VIAL ONE (14:47)
[2021-11-21] MEDS ORDERED: ONDANSETRON INJ 2 MG/ML 2 ML VIAL ONE (14:49)
[2021-11-21] MEDS ORDERED: SUCCINYLCHOLINE CHLORIDE 20 MG/ML 10 ML VIAL IV ONE (14:49)
[2021-11-21] MEDS ORDERED: LIDOCAINE 2% 2 ML VIAL/AMP(20MG/ML) INFIL ONE (14:49)
[2021-11-21] MEDS ORDERED: PROPOFOL IV EMULSION 10 MG/ML 20 ML VIAL IV ONE ×2 (14:49→15:08)
[2021-11-21] MEDS ORDERED: ROCURONIUM BROMIDE 10 MG/ML 5 ML VIAL IV ONE ×3 (14:49→17:12)
[2021-11-21] MEDS ORDERED: DEXAMETHASONE SOD INJ 4 MG/ML VIAL ONE (14:49)
--- NOTE | 2021-11-21 14:55 | Anesthesiology Consultation ---
Date of Service November 21, 2021 Assessment & Plan Chart Review Chart Review: Acceptable Risk for Surgery Consults Requested none History Surgery Operation Date: 11/21/21 08:35 Proposed Procedures p Esophagogastroduodenoscopy - MD maureen Glass Endoscopic Retrograde Cholangiopancreatogram - MD maureen Glass Endoscopic Ultrasonography Upper - Artemio Snowden MD Height/Weight Height: 5 ft 9 in Weight: 79.2 kg Allergies Allergy/AdvReac Type Severity Reaction Status Date / Time meperidine AdvReac Mild PASS OUT Verified 06/16/21 09:57 Medications Home Medications Medication Instructions Recorded Confirmed Last Taken bimatoprost 0.01 % eye drops 1 drops OP QPM 07/08/18 11/16/21 06/15/21 (Lumigan) lisinopril 10 mg tablet 10 mg PO PM 07/08/18 11/16/21 06/15/21 nitroglycerin 0.4 mg sublingual 0.4 mg SL Q5M PRN 07/08/18 11/16/21 Unknown tablet clobetasol 0.05 % topical cream 1 appln TOP BID PRN 04/19/19 11/16/21 Unknown docusate sodium 100 mg capsule 100 mg PO DAILY PRN 04/25/19 11/16/21 Unknown (Colace) famotidine 40 mg tablet (Pepcid) 40 mg PO QAM 11/15/20 11/16/21 06/16/21 ferrous sulfate 325 mg (65 mg 325 mg PO QAM 11/15/20 11/16/21 06/16/21 iron) tablet (FeroSul) turmeric root extract 500 mg 500 mg PO BID 11/15/20 11/16/21 06/16/21 capsule acetaminophen 500 mg tablet 1,000 mg PO Q6H PRN 06/16/21 11/16/21 06/16/21 05:30 (Tylenol Extra Strength) 1000 mg atorvastatin 40 mg tablet 40 mg PO PM 06/16/21 11/16/21 06/15/21 metoprolol tartrate 25 mg tablet 25 mg PO BID 06/16/21 11/16/21 06/16/21 silodosin 8 mg capsule 8 mg PO DAILY 11/16/21 11/16/21 Unknown Active Medications Generic Name Dose Route Start Last Admin Trade Name Freq PRN Reason Stop Dose Admin Atorvastatin Calcium 40 mg 11/16/21 21:00 11/20/21 20:00 Atorvastatin 40 Mg Tab PO 12/16/21 20:59 40 mg PM HUMZA Administration Bimatoprost 1 drops 11/16/21 21:00 11/20/21 20:01 Bimatoprost 0.01% Op Soln 2.5 Ml Btl OP 12/16/21 20:59 1 drops QPM HUMZA Administration Ferrous Sulfate 325 mg 11/17/21 09:00 11/21/21 09:17 Ferrous Sulfate 325 Mg Tab PO 12/17/21 08:59 Not Given QAM HUMZA Metronidazole 500 mg in 100 mls @ 100 mls/hr 11/16/21 22:00 11/21/21 13:56 Flagyl IV 11/26/21 21:59 100 mls/hr Q8H HUMZA Administration Pantoprazole Sodium 40 mg/ 10 mls @ 5 mls/min 11/19/21 21:00 11/21/21 10:00 Syringe IV 12/19/21 20:59 5 mls/min BID HUMZA Administration Cefepime HCl 2,000 mg/ Syringe 20 mls @ 5 mls/min 11/21/21 09:00 11/21/21 09:18 IV 11/27/21 08:59 5 mls/min Q12H HUMZA Administration Protocol Metoprolol Tartrate 25 mg 11/16/21 21:00 11/21/21 09:18 Metoprolol Tartrate 25 Mg Tab PO 12/16/21 20:59 25 mg BID HUMZA Administration NPO Date Last Intake of Fluids: 11/20/21 Time Last Intake of Fluids: 22:30 Date Last Intake of Solids: 11/20/21 Time Last Intake of Solids: 16:00 Past Medical History Medical History (Updated 11/20/21 @ 13:59 by Carolina Connelly DO) CAD (coronary artery disease) Calculus of ureter Dermatitis Dyslipidemia Glaucoma Bilateral Eyes Hypertension Ischemic heart disease Kidney disease Chronic Stage 3 Polymyalgia rheumatica Prostate CA Diagnosed 06/08/18 - Jeb 3+3, 3+4 Past Family History Family History Mother , Passed age 87 of CVA Breast cancer, Onset Age: 50 Father , Passed age 64 of Lung Disease No problems noted. Brother No problems noted. Sister , Passed age 58 of breast cancer/head and neck cancer No problems noted. Sister No problems noted. Sister No problems noted. Daughter No problems noted. Past Surgical History Surgical History History of coronary artery bypass graft x 3 2013 History of kidney surgery 1994 - Ureteral Stone Surgery History of prostate biopsy 06/08/18 Status post repair of hydrocele Drainage as a youth Social History Smoking Status: Never smoker Hx Alcohol Use: Yes Alcohol type: beer alcohol intake frequency: a few times a month Hx Substance Use: No Physical Exam Vital Signs Last Vital Signs Temp 36.6 C 11/21/21 14:12 Pulse 96 H 11/21/21 14:12 Resp 18 11/21/21 14:12 BP 154/84 H 11/21/21 14:12 Pulse Ox 97 11/21/21 14:12 Testing Laboratory Results 11/21/21 06:23 11/21/21 06:23 PT 11.2 Seconds (9.0-12.0) 11/16/21 10:40 INR 1.1 (0.9-1.1) 11/16/21 10:40 Urine Color Dark Yellow 11/16/21 10:35 Urine Appearance Cloudy (Clear) A 11/16/21 10:35 Urine pH 5.0 (4.5-7.5) 11/16/21 10:35 Ur Specific Loa 1.017 (1.000-1.030) 11/16/21 10:35 Urine Protein 1+ (Negative) H 11/16/21 10:35 Urine Glucose (UA) Negative (Negative) 11/16/21 10:35 Urine Ketones Trace (Negative) H 11/16/21 10:35 Urine Nitrite Negative (Negative) 11/16/21 10:35 Ur Leukocyte Esterase Negative (Negative) 11/16/21 10:35 Urine WBC (Auto) 1-5 /hpf (0-5) 11/16/21 10:35 Urine RBC (Auto) 0-4 /hpf (0-4) 11/16/21 10:35 U Hyaline Cast (Auto) 1-5 /lpf (0-5) 11/16/21 10:35 U Epithel Cells (Auto) 5-10 /lpf (0-5) H 11/16/21 10:35 Urine Bacteria (Auto) Negative (Negative) 11/16/21 10:35 11/16/21 10:40 Aerobic Blood Culture - Preliminary Blood No growth in Aerobic bottle after 48 hours. Anaerobic Blood Culture - Preliminary No growth in Anaerobic bottle after 48 hours. 11/16/21 10:45 Aerobic Blood Culture - Preliminary Blood No growth in Aerobic bottle after 48 hours. Anaerobic Blood Culture - Preliminary No growth in Anaerobic bottle after 48 hours. 11/16/21 10:35 Urine Culture - Final Urine,Clean Catch Three types of organisms present, all low counts probable skin shanti. No further identifications or sensitivities to follow.
[2021-11-21] MEDS ORDERED: ATROPINE SULFATE 0.1 MG/ML 10ML SYR IV PRN (14:56)
[2021-11-21] MEDS ORDERED: ePHEDrine sulfate 50 MG/ML AMP IV PRN (14:56)
[2021-11-21] MEDS ORDERED: fentaNYL citrate 100 MCG/2 ML VIAL IV PRN (14:56)
[2021-11-21] MEDS ORDERED: INDOMETHACIN 50 MG SUPP PR ONE (15:10)
--- NOTE | 2021-11-21 16:06 | Operative Report ---
Post Operative Report Pre & Post Diagnosis Operation Date: 11/21/21 08:35 Pre-Op Diagnosis: DIZZINESS, WEAKNESS, SUSPECTED UTI, Sepsis Post-Op Diagnosis: choledocolithiasis I identified the patient and participated in the time-out.: Yes Procedure Operation Date: 11/21/21 08:35 Actual Procedures s Esophagogastroduodenoscopy - Artemio Snowden MD p Endoscopic Ultrasonography Upper - Artemio Snowden MD p Endoscopic Retrograde Cholangiopancreato - Artemio Snowden MD Surgeon Artemio Snowden MD Assistant Finance Manager None Estimated Blood Loss 0 Findings See Below (Choledocholithiasis, cholangitis, Stent placed) Specimens Duodenal polyp Description of Procedure EUS/ERCP I attest to the content of the Intraoperative Record and any orders documented therein. Any exceptions are noted below.
--- NOTE | 2021-11-21 16:12 | Gastroenterology Progress Note ---
Date of Service November 21, 2021 Assessment & Plan Admission and Anticipated Discharge Date Admission Date: November 16, 2021 Subjective EUS/ERCP showed cholangitis and choledocholithiasis, CBD stent placed. GB is has many stones. Please consult surgery for cholecystectomy. Results & Data ([facility]) Vital Signs (Past 12 Hours) Vital Signs Temp Pulse Pulse Pulse Resp BP BP 11/21/21 14:12 36.6 C 96 H 18 154/84 H 11/21/21 11:27 36.8 C 80 16 129/90 11/21/21 08:00 85 11/21/21 07:29 36.7 C 77 18 161/81 H Pulse Ox 11/21/21 14:12 97 11/21/21 11:27 97 11/21/21 08:00 11/21/21 07:29 97
--- NOTE | 2021-11-21 16:13 | GI REPORT ---
Patient Name: Broderick Khan Procedure Date: 11/21/2021 3:01 PM Date of : 1940 Admit Type: Inpatient Age: 81 Gender: Male Attending MD: Artemio Snowden MD Procedure: Upper GI endoscopy Providers: Artemio Snowden MD Referring MD: Carolina Medina Do Indications: Abdominal pain Medicines: Propofol per Anesthesia Complications: No immediate complications. Estimated Blood Loss: Estimated blood loss: none. Procedure: Pre-Anesthesia Assessment: - Prior to the procedure, a History and Physical was performed, and patient medications, allergies and sensitivities were reviewed. The patient's tolerance of previous anesthesia was reviewed. - The risks and benefits of the procedure and the sedation options and risks were discussed with the patient. All questions were answered and informed consent was obtained. - Patient identification and proposed procedure were verified prior to the procedure by the physician and the nurse. The procedure was verified in the procedure room. - Pre-procedure physical examination revealed no contraindications to sedation. After obtaining informed consent, the endoscope was passed under direct vision. Throughout the procedure, the patient's blood pressure, pulse, and oxygen saturations were monitored continuously. The Endoscope was introduced through the mouth, and advanced to the second part of duodenum. The upper GI endoscopy was accomplished without difficulty. The patient tolerated the procedure well. Findings: The examined esophagus was normal. The entire examined stomach was normal. The duodenal bulb and second portion of the duodenum were normal. Impression: - Normal esophagus. - Normal stomach. - Normal duodenal bulb and second portion of the duodenum. Recommendation: - Perform an upper endoscopic ultrasound (UEUS) today. Artemio Snowden MD 11/21/2021 4:13:23 PM This report has been signed electronically. Note Initiated On: 11/21/2021 3:01 PM Number of Addenda: 0 I attest to the content of the Intraoperative Record and orders documented therein, exceptions below {[id number]}
--- NOTE | 2021-11-21 16:16 | GI REPORT ---
Patient Name: Broderick Khan Procedure Date: 11/21/2021 3:00 PM Date of : 1940 Admit Type: Inpatient Age: 81 Gender: Male Attending MD: Artemio Snowden MD Procedure: Upper EUS Providers: Artemio Snowden MD Referring MD: Carolina Medina Do Indications: Elevated liver enzymes, Suspected choledocholithiasis Medicines: Propofol per Anesthesia Complications: No immediate complications. Estimated Blood Loss: Estimated blood loss: none. Procedure: Pre-Anesthesia Assessment: - Prior to the procedure, a History and Physical was performed, and patient medications, allergies and sensitivities were reviewed. The patient's tolerance of previous anesthesia was reviewed. - The risks and benefits of the procedure and the sedation options and risks were discussed with the patient. All questions were answered and informed consent was obtained. - Patient identification and proposed procedure were verified prior to the procedure by the physician and the nurse. The procedure was verified in the procedure room. - Pre-procedure physical examination revealed no contraindications to sedation. After obtaining informed consent, the endoscope was passed under direct vision. Throughout the procedure, the patient's blood pressure, pulse, and oxygen saturations were monitored continuously. The Endosonoscope was introduced through the mouth, and advanced to the second part of duodenum. The upper EUS was accomplished without difficulty. The patient tolerated the procedure well. Findings: ENDOSONOGRAPHIC FINDING: : There was no sign of significant endosonographic abnormality in the ampulla. No masses were identified. One stone was visualized endosonographically in the common bile duct. It was hyperechoic and characterized by shadowing. Many stones were visualized endosonographically in the gallbladder. They were hyperechoic and characterized by shadowing. There was no sign of significant endosonographic abnormality in the visualized portion of the liver. Homogeneous parenchyma was identified. Pancreatic parenchymal abnormalities were noted in the entire pancreas. These consisted of diffuse echogenicity. There was no sign of significant endosonographic abnormality in the left adrenal gland. There was no sign of significant endosonographic abnormality involving the celiac trunk. Impression: - There was no sign of significant pathology in the ampulla. - One stone was visualized endosonographically in the common bile duct. Ductal wall thickening suggestive of cholangitis. - Many stones were visualized endosonographically in the gallbladder. - There was no evidence of significant pathology in the visualized portion of the liver. - Fatty pancreas. - Endosonographic images of the left adrenal gland were unremarkable. - The celiac trunk was endosonographically normal. Recommendation: - Perform an ERCP today. Artemio Snowden MD 11/21/2021 4:16:00 PM This report has been signed electronically. Note Initiated On: 11/21/2021 3:00 PM Number of Addenda: 0 I attest to the content of the Intraoperative Record and orders documented therein, exceptions below {[id number]}
[2021-11-21] MEDS ORDERED: ESMOLOL HCL INJ 10 MG/ML 10ML VIAL IV ONE ×2 (16:19→17:11)
--- NOTE | 2021-11-21 16:20 | GI REPORT ---
Patient Name: Broderick Khan Procedure Date: 11/21/2021 3:00 PM Date of : 1940 Admit Type: Inpatient Age: 81 Gender: Male Attending MD: Artemio Snowden MD Procedure: ERCP Providers: Artemio Snowden MD Referring MD: Carolina Medina Do Indications: For therapy of bile duct stone(s) Medicines: General Anesthesia Complications: No immediate complications. Estimated Blood Loss: Estimated blood loss: none. Procedure: Pre-Anesthesia Assessment: - Prior to the procedure, a History and Physical was performed, and patient medications, allergies and sensitivities were reviewed. The patient's tolerance of previous anesthesia was reviewed. - The risks and benefits of the procedure and the sedation options and risks were discussed with the patient. All questions were answered and informed consent was obtained. - Patient identification and proposed procedure were verified prior to the procedure by the physician and the nurse. The procedure was verified in the procedure room. - Pre-procedure physical examination revealed no contraindications to sedation. After obtaining informed consent, the scope was passed under direct vision. Throughout the procedure, the patient's blood pressure, pulse, and oxygen saturations were monitored continuously. The Duodenoscope was introduced through the mouth, and advanced to the duodenum and used to inject contrast into the bile duct. The ERCP was accomplished without difficulty. The patient tolerated the procedure well. Findings: The instrument and controls technician film was normal. The esophagus was successfully intubated under direct vision. The scope was advanced to a normal major papilla in the descending duodenum without detailed examination of the pharynx, larynx and associated structures, and upper GI tract. The upper GI tract was grossly normal. A 0.025 inch x 270 cm angled Visiglide wire was passed into the biliary tree. The CleverCut distal wire sphincterotome was passed over the guidewire and the bile duct was then deeply cannulated. Contrast was injected. I personally interpreted the bile duct images. Ductal flow of contrast was adequate. Image quality was adequate. Contrast extended to the main bile duct. Opacification of the entire biliary tree was successful. The maximum diameter of the ducts was 8 mm. Many stones seen in the gallbladder. Biliary sphincterotomy was made with a monofilament traction (standard) sphincterotome using ERBE electrocautery. There was no post-sphincterotomy bleeding. The biliary tree was swept with a 12 mm balloon starting at the bifurcation. Sludge was swept from the duct. One stone was removed. No stones remained. One 7 Fr by 9 cm plastic biliary stent with a single external flap and a single internal flap was placed into the common bile duct. Bile flowed through the stent. The stent was in good position. One 6 mm sessile polyp was seen in the duodenum below the ampulla. The polyp was removed with a cold snare. The polypectomy was performed through the ERCP scope. Resection and retrieval were complete. Verification of patient identification for the specimen was done by the physician and nurse using the patient's name and date. Impression: - Choledocholithiasis was found. Complete removal was accomplished by biliary sphincterotomy and balloon extraction. - One plastic biliary stent was placed into the common bile duct. - One 6 mm polyp in the second portion of the duodenum resected with a cold snare. Recommendation: - Return patient to hospital [facility] for ongoing care. - Await path results. - Repeat ERCP in 8 weeks to remove stent. - Refer to a surgeon for cholecystectomy. Artemio Snowden MD 11/21/2021 4:20:49 PM This report has been signed electronically. Note Initiated On: 11/21/2021 3:00 PM Number of Addenda: 0 I attest to the content of the Intraoperative Record and orders documented therein, exceptions below {[id number]}
[2021-11-21] MEDS ORDERED: GLUCAGON FOR INJ 1 MG VIAL ONE (16:35)
--- NOTE | 2021-11-21 16:50 | Cardiology Progress Note ---
Date of Service November 21, 2021 Assessment & Plan (1) Atrial fibrillation with rapid ventricular response: (2) Acute renal failure: (3) Pancytopenia: (4) Septic shock: (5) Elevated LFTs: (6) Cystic duct calculus: (7) CAD (coronary artery disease): Plan: Pt has converted to sinus mechanism with frequent supraventricular ectopy no further cardiac testing or intervention necessary at this time Will hold off on anticoagulation at this time given the need for likely upcoming invasive GI procedures and active bleeding with only SubQ Lovenox risk discussed with patient, in agreement with holding anticoagulation for EGD today Admission and Anticipated Discharge Date Admission Date: November 16, 2021 Physical Exam Physical Exam: General: Awake, alert and oriented x 3. No acute distress. HEENT: Normocephalic, atraumatic. Pupils equal, round and reactive to light and accommodation. Extraocular muscles are intact. Anicteric sclera. Moist mucous membranes. Neck: No JVD. No bruit. Cardiovascular: irregularly irregular, unable to appreciate murmur, rub or gallop. Pulmonary: Clear to auscultation bilaterally. No rales, rhonchi, or wheezing. Abdomen: Bowel sounds x 4, soft. No rebound, guarding or tenderness. No organomegaly. Extremities: No clubbing, cyanosis or edema. +2 pedal pulses bilaterally. Skin: Warm and dry. Results & Data ([facility]) Vital Signs (Past 12 Hours) Vital Signs Temp Pulse Pulse Pulse Resp BP BP 11/21/21 14:12 36.6 C 96 H 18 154/84 H 11/21/21 11:27 36.8 C 80 16 129/90 11/21/21 08:00 85 11/21/21 07:29 36.7 C 77 18 161/81 H Pulse Ox 11/21/21 14:12 97 11/21/21 11:27 97 11/21/21 08:00 11/21/21 07:29 97 (1) Acute renal failure Acute renal failure type: unspecified Qualified Code(s): N17.9 - Acute kidney failure, unspecified
--- NOTE | 2021-11-21 16:57 | Fluoroscopy Report ---
[place] ERCP biliary ductal CLINICAL HISTORY: W/EGD AND EUS COMPARISON STUDY: None FLUOROSCOPY TIME: 38 seconds. FLUOROSCOPIC IMAGES: 14 fluoroscopic spot images of the L1 FINDINGS: There is catheterization of the common bile duct with filling of the common bile duct, cyst ic duct and gallbladder with contrast. There is cholelithiasis present. There appears to be a biliary stents on the last image obtained. IMPRESSION: Status post ERCP in the OR. Please see intraoperative report. ACT 112: Negative or not required by law. Electronically signed by: Hemanth Mckee M.D. 11/21/2021 4:56 PM
--- NOTE | 2021-11-21 17:48 | Anesthesiology Progress Note ---
Date of Service November 21, 2021 Anesthesia Post Procedure Vital Signs Vital Signs: Temp Pulse Pulse Pulse Resp BP BP 11/21/21 17:30 36.5 C 74 21 139/79 11/21/21 17:20 83 25 H 168/94 H 11/21/21 17:10 71 18 149/84 H 11/21/21 17:02 36.0 C L 80 23 134/86 11/21/21 14:12 36.6 C 96 H 18 154/84 H 11/21/21 11:27 36.8 C 80 16 129/90 11/21/21 08:00 85 11/21/21 07:29 36.7 C 77 18 161/81 H 11/21/21 03:43 36.8 C 88 18 111/92 11/20/21 23:36 61 11/20/21 23:14 36.6 C 75 18 131/72 11/20/21 19:51 36.9 C 79 18 132/78 Pulse Ox 11/21/21 17:30 98 11/21/21 17:20 100 11/21/21 17:10 100 11/21/21 17:02 100 11/21/21 14:12 97 11/21/21 11:27 97 11/21/21 08:00 11/21/21 07:29 97 11/21/21 03:43 97 11/20/21 23:36 11/20/21 23:14 99 11/20/21 19:51 96 Transfer of Care Handoff Completed per policy Notes Mental Status: alert / awake / arousable Patient Amnestic to Procedure: Yes Nausea / Vomiting: adequately controlled Pain: adequately controlled Airway Patency, RR, SpO2: stable & adequate BP & HR: stable & adequate Hydration State: stable & adequate Anesthetic Complications: no major complications apparent and Pt Satisfied with anesthetic care Notes: The patient is now awake and comfortable. He is in sinus rhythm and his vital signs are all stable. In the OR the patient had been noted to go into afib with RVR (of which he has a history). His HR went to the 140s. His procedure had initially been under MAC but then a decision was made to do an ERCP so the patient was intubated. It was during this procedure that the [employer] called me into the room for the rapid heart rate. The patient was treated with esmolol. He was slow to wake up but eventually following commands and extubated in the OR. Once he came to recovery, his vital signs stabilized.
[2021-11-21] MEDS: BIMATOPROST 0.01% OP SOLN 2.5 ML BTL OP SCH (20:41)
[2021-11-21] MEDS: ATORVASTATIN 40 MG TAB PO SCH (20:44)
[2021-11-22] MEDS: metroNIDAZOLE 500 MG/100 ML BAG IV SCH (06:01)
[2021-11-22] MEDS: FERROUS SULFATE 325 MG TAB PO SCH (08:22)
[2021-11-22] MEDS: METOPROLOL TARTRATE 25 MG TAB PO SCH ×2 (08:28→20:33)
[2021-11-22] MEDS: PANTOprazole 40 MG in SYRINGE 0 ML IV SCH (08:28)
[2021-11-22] MEDS: CEFEPIME 2,000 MG in SYRINGE 0 ML IV SCH (08:28)
--- NOTE | 2021-11-22 08:57 | Surgery Progress Note ---
Date of Service November 22, 2021 Assessment & Plan (1) Choledocholithiasis: Plan: He is a candidate for cholecystectomy. He is currently medically stable. I discussed the procedure with him including risks which include bleeding, infection, injury to a bile duct or bile leaks, injury to another organ, DVT, PE, PR, CVA etc. Following our discussion I answered all of his questions. We will proceed today with laparoscopic cholecystectomy. He has been n.p.o. since midnight (2) Cholelithiasis: Admission and Anticipated Discharge Date Admission Date: November 16, 2021 Subjective Patient seen. Requested by GI for consideration of cholecystectomy. ERCP performed yesterday did reveal some biliary ductal stones. This was felt to be the source of cholangitis and his underlying problem at presentation. He is currently feeling better no abdominal pain. Physical Exam Constitutional: WD/WN, vitals as above no acute distress and not ill appearing Eyes: PERRL, conjunctivae normal, anicteric sclerae EOM intact bilaterally ENMT: external ear and nose normal, oropharynx normal Ears: no hearing impairment Neck: trachea midline, no thyromegaly Respiratory: normal respiratory effort; no respiratory distress and does not use accessory muscles Cardiovascular: Rate/Rhythm: regular rate and regular rhythm Gastrointestinal (Abdomen): Soft. Nontender. Nondistended. Skin: no rashes, warm and dry Psychiatric: Orientation: alert, oriented x 3 and cooperative Results & Data ([facility]) Vital Signs (Past 12 Hours) Vital Signs Temp Pulse Pulse Resp BP Pulse Ox 11/22/21 08:00 36.9 C 81 18 133/85 97 11/22/21 03:20 36.8 C 82 17 137/76 95 11/21/21 22:44 36.6 C 79 18 138/88 96 PG Care Time/CCT Total # of Minutes Spent Total Time Spent with Patient: Total time spent is greater than 50% in coordination of care (as documented) at patient's floor/unit and/or counseling patient: Coding Level of Care Code 81880 Subseq Hosp Care Lvl 3 Diagnoses Choledocholithiasis K80.50 Cholelithiasis K80.20
--- NOTE | 2021-11-22 09:37 | Anesthesiology Consultation ---
Date of Service November 22, 2021 Assessment & Plan Chart Review Chart Review: Acceptable Risk for Surgery and Patient NOT seen in Pre Admission Testing History Surgery Operation Date: 11/21/21 08:35 Proposed Procedures p Esophagogastroduodenoscopy - Artemio Snowden MD s Endoscopic Retrograde Cholangiopancreatogram - MD maureen Glass Endoscopic Ultrasonography Upper - Artemio Snowden MD Operation Date: 11/22/21 11:25 Proposed Procedures p Laparoscopic Cholecystectomy - Jeffry Pritchett DO Height/Weight Height: 5 ft 9 in Weight: 78 kg Allergies Allergy/AdvReac Type Severity Reaction Status Date / Time meperidine AdvReac Mild PASS OUT Verified 06/16/21 09:57 Medications Home Medications Medication Instructions Recorded Confirmed Last Taken bimatoprost 0.01 % eye drops 1 drops OP QPM 07/08/18 11/16/21 06/15/21 ([place]igan) lisinopril 10 mg tablet 10 mg PO PM 07/08/18 11/16/21 06/15/21 nitroglycerin 0.4 mg sublingual 0.4 mg SL Q5M PRN 07/08/18 11/16/21 Unknown tablet clobetasol 0.05 % topical cream 1 appln TOP BID PRN 04/19/19 11/16/21 Unknown docusate sodium 100 mg capsule 100 mg PO DAILY PRN 04/25/19 11/16/21 Unknown (Colace) famotidine 40 mg tablet (Pepcid) 40 mg PO QAM 11/15/20 11/16/21 06/16/21 ferrous sulfate 325 mg (65 mg 325 mg PO QAM 11/15/20 11/16/21 06/16/21 iron) tablet (FeroSul) turmeric root extract 500 mg 500 mg PO BID 11/15/20 11/16/21 06/16/21 capsule acetaminophen 500 mg tablet 1,000 mg PO Q6H PRN 06/16/21 11/16/21 06/16/21 05:30 (Tylenol Extra Strength) 1000 mg atorvastatin 40 mg tablet 40 mg PO PM 06/16/21 11/16/21 06/15/21 metoprolol tartrate 25 mg tablet 25 mg PO BID 06/16/21 11/16/21 06/16/21 silodosin 8 mg capsule 8 mg PO DAILY 11/16/21 11/16/21 Unknown Active Medications Generic Name Dose Route Start Last Admin Trade Name Freq PRN Reason Stop Dose Admin Atorvastatin Calcium 40 mg 11/16/21 21:00 11/21/21 20:44 Atorvastatin 40 Mg Tab PO 12/16/21 20:59 40 mg PM HUMZA Administration Bimatoprost 1 drops 11/16/21 21:00 11/21/21 20:41 Bimatoprost 0.01% Op Soln 2.5 Ml Btl OP 12/16/21 20:59 1 drops QPM HUMZA Administration Ferrous Sulfate 325 mg 11/17/21 09:00 11/22/21 08:22 Ferrous Sulfate 325 Mg Tab PO 12/17/21 08:59 Not Given QAM HUMZA Metronidazole 500 mg in 100 mls @ 100 mls/hr 11/16/21 22:00 11/22/21 07:11 Flagyl IV 11/26/21 21:59 Infused Q8H HUMZA Infusion Pantoprazole Sodium 40 mg/ 10 mls @ 5 mls/min 11/19/21 21:00 11/22/21 08:28 Syringe IV 12/19/21 20:59 5 mls/min BID HUMZA Administration Cefepime HCl 2,000 mg/ Syringe 20 mls @ 5 mls/min 11/21/21 09:00 11/22/21 08:28 IV 11/27/21 08:59 5 mls/min Q12H HUMZA Administration Protocol Metoprolol Tartrate 25 mg 11/16/21 21:00 11/22/21 08:28 Metoprolol Tartrate 25 Mg Tab PO 12/16/21 20:59 25 mg BID HUMZA Administration NPO Date Last Intake of Fluids: 11/20/21 Time Last Intake of Fluids: 22:30 Date Last Intake of Solids: 11/20/21 Time Last Intake of Solids: 16:00 Past Medical History Medical History CAD (coronary artery disease) Calculus of ureter Dermatitis Dyslipidemia Glaucoma Bilateral Eyes Hypertension Ischemic heart disease Kidney disease Chronic Stage 3 Polymyalgia rheumatica Prostate CA Diagnosed 06/08/18 - Drums 3+3, 3+4 Past Family History Family History Mother , Passed age 87 of CVA Breast cancer, Onset Age: 50 Father , Passed age 64 of Lung Disease No problems noted. Brother No problems noted. Sister , Passed age 58 of breast cancer/head and neck cancer No problems noted. Sister No problems noted. Sister No problems noted. Daughter No problems noted. Past Surgical History Surgical History History of coronary artery bypass graft x 3 2013 History of kidney surgery 1994 - Ureteral Stone Surgery History of prostate biopsy 06/08/18 Status post repair of hydrocele Drainage as a youth Social History Smoking Status: Never smoker Hx Alcohol Use: Yes Alcohol type: beer alcohol intake frequency: a few times a month Hx Substance Use: No Physical Exam Vital Signs Last Vital Signs Temp 36.9 C 11/22/21 08:00 Pulse 81 11/22/21 08:00 Resp 18 11/22/21 08:00 BP 133/85 11/22/21 08:00 Pulse Ox 97 11/22/21 08:00 Testing Laboratory Results 11/21/21 06:23 11/21/21 06:23 PT 11.2 Seconds (9.0-12.0) 11/16/21 10:40 INR 1.1 (0.9-1.1) 11/16/21 10:40 Urine Color Dark Yellow 11/16/21 10:35 Urine Appearance Cloudy (Clear) A 11/16/21 10:35 Urine pH 5.0 (4.5-7.5) 11/16/21 10:35 Ur Specific [place] 1.017 (1.000-1.030) 11/16/21 10:35 Urine Protein 1+ (Negative) H 11/16/21 10:35 Urine Glucose (UA) Negative (Negative) 11/16/21 10:35 Urine Ketones Trace (Negative) H 11/16/21 10:35 Urine Nitrite Negative (Negative) 11/16/21 10:35 Ur Leukocyte Esterase Negative (Negative) 11/16/21 10:35 Urine WBC (Auto) 1-5 /hpf (0-5) 11/16/21 10:35 Urine RBC (Auto) 0-4 /hpf (0-4) 11/16/21 10:35 U Hyaline Cast (Auto) 1-5 /lpf (0-5) 11/16/21 10:35 U Epithel Cells (Auto) 5-10 /lpf (0-5) H 11/16/21 10:35 Urine Bacteria (Auto) Negative (Negative) 11/16/21 10:35 11/16/21 10:40 Aerobic Blood Culture - Final Blood No growth in Aerobic bottle after 5 days. Anaerobic Blood Culture - Final No growth in Anaerobic bottle after 5 days. 11/16/21 10:45 Aerobic Blood Culture - Final Blood No growth in Aerobic bottle after 5 days. Anaerobic Blood Culture - Final No growth in Anaerobic bottle after 5 days. 11/16/21 10:35 Urine Culture - Final Urine,Clean Catch Three types of organisms present, all low counts probable skin shanti. No further identifications or sensitivities to follow.
--- NOTE | 2021-11-22 10:39 | Gastroenterology Progress Note ---
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 Had undergone about 6 APC tx last year for this and hadn't had bleeding again until this admission. No bleeding today. Plan: Continue antibiotics x 5 more days. OK for Cipro/Flagyl - unless surgery has other recommendation. Cholecystectomy today. Needs OP ERCP in 8 wks for removal of stent. For recent rectal bleeding w hx of radiation proctitis, our office will reach out to him to arrange OP colonoscopy as will likely need retreat w APC of lesions since may be on anticoagulation for A-fib. Hb during this admission 12- >9.2 hasn't required transfusions. GI will sign off. Please notify us of new/worsening GI issues. Admission and Anticipated Discharge Date Admission Date: November 16, 2021 Subjective 81, male, admitted Thursday 11/16 w sepsis, new A-fib (anti-coag not started yet). ERCP yesterday with spincterotomy, sweeping of the bile ducts for stones and the exam was suggestive of cholangitis (has been on antibiotics since Friday). Cholecystectomy planned for later today. Pt awake, alert, pleasantly conversational, currently in NSR. NPO now, tolerated clear liquids po last evening w/o pain or nausea. CBC, CMP ordered for today. Review of Systems Review of Systems: ROS: Gen: weakness - resolved, No fevers, No weight loss Eyes: No eye redness, or pain, no recent vision changes Resp: No SOB, no cough Cardio: No palpitations/irregular beats, no chest pain (did not feel any irregular heart beats w A-fib). Has had weakness, poor exercise tolerance. GI: No abdominal pain (since 4 wks ago), no nausea/vomiting : Denies pain on urination Skin: No jaundice, itching or new rashes Physical Exam Constitutional: well developed, + thin and cooperative Eyes: PERRL, conjunctivae normal, anicteric sclerae ENMT: external ear and nose normal, oropharynx normal Neck: trachea midline, no thyromegaly Respiratory: normal respiratory effort, lungs clear to auscultation normal respiratory effort and able to speak in complete sentences; no respiratory distress, no labored breathing, does not use accessory muscles and no cough Cardiovascular: Rate/Rhythm: regular rate and + irregularly irregular Heart Sounds: no murmur Extremities: no edema Gastrointestinal (Abdomen): normal bowel sounds, soft, nontender, no hepatosplenomegaly Inspection/Auscultation: abdomen normal to inspection and normal bowel sounds; abdomen not distended and no abdominal edema Skin: no rashes, warm and dry normal turgor and + pallor Neurologic: PERRL, EOMI, accommodation nl, no face palsy, no dysarthria awake; not confused Psychiatric: A+Ox3, euthymic affect Orientation: alert, oriented x 3 and cooperative Lymphatic: no cervical or axillary lymphadenopathy Results & Data ([facility]) Vital Signs (Past 12 Hours) Vital Signs Temp Pulse Pulse Pulse Resp BP Pulse Ox 11/22/21 08:00 36.9 C 74 81 18 133/85 97 11/22/21 03:20 36.8 C 82 17 137/76 95 11/21/21 22:44 36.6 C 79 18 138/88 96 Laboratory Results Pending Diagnostic Findings ERCP 11/21/21: 6mm duodenal polyp resected, sphincterotomy, sweeping of the duct for choledocholithiasis with balloon. (verbally) per Dr. Snowden there was pus in the ducts - so very likely the cause of his sepsis.
[2021-11-22 10:43] LABS: Basophils # (auto) 0.01 K/uL (0-0.2); Basophils % (auto) 0.1 %; Eosinophils # (auto) 0.03 K/uL (0-0.5); Eosinophils % (auto) 0.4 %; Hematocrit (blood only) 25.4 % (42-52); Hemoglobin 8.7 g/dL (14.0-18.0); Immature Granulocytes # (auto) 0.03 K/uL (0.00-0.02); Immature Granulocytes % (auto) 0.4 %; Lymphocytes % (auto) 15.5 %; Mean Corpuscular Hgb Conc 34.3 g/dL (32-36); Mean Corpuscular Volume 90.4 fL (80-100); Mean Platelet Volume 10.5 fL (7.4-10.4); Monocytes # (auto) 1.07 K/uL (0.11-0.59); Monocytes % (auto) 15.1 %; Neutrophils # (auto) 4.85 K/uL (1.4-6.5); Neutrophils % (auto) 68.5 %; Platelet Count 269 K/uL (130-400); RDW Standard Deviation 47.2 fL (36.4-46.3); Red Blood Count 2.81 M/uL (4.7-6.1); White Blood Count 7.09 K/uL (4.8-10.8)
[2021-11-22 11:04] LABS: Albumin Globulin Ratio 1.2 (0.9-2); Albumin Level 3.3 gm/dl (3.4-5.0); Bilirubin,Total 0.8 mg/dl (0.2-1.0); Calcium 8.7 mg/dl (8.5-10.1); Creatinine Clr Calc Pharmacy 35.7 ml/min; Est GFR (African American) 44.1 ml/min; Est GFR (Non-African American) 38.1 ml/min; Globulin 2.7 gm/dl (2.5-4.0)
[2021-11-22] MEDS ORDERED: DOCUSATE SODIUM 100 MG CAP PO PRN (11:31)
[2021-11-22] MEDS ORDERED: ePHEDrine sulfate 50 MG/ML AMP IV PRN (12:54)
[2021-11-22] MEDS ORDERED: fentaNYL citrate 100 MCG/2 ML VIAL IV PRN (12:54)
[2021-11-22] MEDS ORDERED: HYDROmorphone INJ 2 MG/ML SYR/VIAL IV PRN (12:54)
[2021-11-22] MEDS ORDERED: ATROPINE SULFATE 0.1 MG/ML 10ML SYR IV PRN (12:54)
--- NOTE | 2021-11-22 12:54 | Anesthesiology Progress Note ---
Date of Service November 22, 2021 Anesthesia Post Procedure Vital Signs Vital Signs: Temp Pulse Pulse Pulse Resp BP Pulse Ox 11/22/21 12:51 83 20 148/81 H 99 11/22/21 12:35 36.7 C 81 20 153/101 H 99 11/22/21 11:47 37 C 75 18 135/83 96 11/22/21 08:00 36.9 C 74 81 18 133/85 97 11/22/21 03:20 36.8 C 82 17 137/76 95 11/21/21 22:44 36.6 C 79 18 138/88 96 11/21/21 19:11 36.5 C 82 18 153/77 H 97 11/21/21 17:58 84 16 139/72 95 11/21/21 17:30 36.5 C 74 21 139/79 98 11/21/21 17:20 83 25 H 168/94 H 100 11/21/21 17:10 71 18 149/84 H 100 11/21/21 17:02 36.0 C L 80 23 134/86 100 11/21/21 14:12 36.6 C 96 H 18 154/84 H 97 Transfer of Care Handoff Completed per policy Notes Mental Status: alert / awake / arousable and participated in evaluation Patient Amnestic to Procedure: Yes Nausea / Vomiting: adequately controlled Pain: adequately controlled Airway Patency, RR, SpO2: stable & adequate BP & HR: stable & adequate Hydration State: stable & adequate Anesthetic Complications: no major complications apparent and Pt Satisfied with anesthetic care
[2021-11-22] MEDS ORDERED: EPINEPHrine INJ 1 MG/ML AMP ONE (13:05)
[2021-11-22] MEDS ORDERED: BUPIVACAINE 0.5 % 5 MG/1 ML MPF 30ML VIAL ONE (13:06)
[2021-11-22] MEDS ORDERED: PHENYLEPHRINE HCL 10 MG/ML VIAL ONE (14:02)
[2021-11-22] MEDS ORDERED: ESMOLOL HCL INJ 10 MG/ML 10ML VIAL IV ONE (14:02)
[2021-11-22] MEDS ORDERED: ONDANSETRON INJ 2 MG/ML 2 ML VIAL ONE (14:02)
[2021-11-22] MEDS ORDERED: ePHEDrine sulfate 50 MG/ML AMP ONE (14:02)
[2021-11-22] MEDS ORDERED: PROPOFOL IV EMULSION 10 MG/ML 20 ML VIAL IV ONE (14:02)
[2021-11-22] MEDS ORDERED: ROCURONIUM BROMIDE 10 MG/ML 5 ML VIAL IV ONE (14:02)
[2021-11-22] MEDS ORDERED: LIDOCAINE 2% 2 ML VIAL/AMP(20MG/ML) INFIL ONE (14:02)
[2021-11-22] MEDS ORDERED: DEXAMETHASONE SOD INJ 4 MG/ML VIAL ONE (14:02)
[2021-11-22] MEDS ORDERED: ceFAZolin 2000MG 2,000 MG/15 ML SYR IV ONE (14:09)
[2021-11-22] MEDS ORDERED: GLYCOPYRROLATE 0.2 MG/ML VIAL ONE (14:15)
[2021-11-22] MEDS ORDERED: NEOSTIGMINE METHYLSULFATE 1 MG/ML 10ML VIAL ONE (14:15)
[2021-11-22] MEDS ORDERED: fentaNYL citrate 100 MCG/2 ML VIAL ONE (14:19)
--- NOTE | 2021-11-22 14:29 | Operative Report ---
PG Post Operative Report Pre & Post Diagnosis Operation Date: 11/21/21 08:35 Pre-Op Diagnosis: DIZZINESS, WEAKNESS, SUSPECTED UTI, Sepsis Post-Op Diagnosis: choledocolithiasis Operation Date: 11/22/21 11:25 Pre-Op Diagnosis: cholelithiasis/cholecystitis Post-Op Diagnosis: Cholelithiasis/cholecystitis I identified the patient and participated in the time-out.: Yes Procedure Operation Date: 11/21/21 08:35 Actual Procedures s Esophagogastroduodenoscopy - Artemio Snowden MD p Endoscopic Ultrasonography Upper - Artemio Snowden MD p Endoscopic Retrograde Cholangiopancreato - Artemio Snowden MD Operation Date: 11/22/21 11:25 Actual Procedures p Laparoscopic Cholecystectomy(Not Applicable) - Jeffry Pritchett DO Surgeon Jeffry Pritchett DO Hog Tender None Estimated Blood Loss 15 Findings See Below (Choledocholithiasis, cholangitis, Stent placed) Specimens gallbladder Description of Procedure After informed consent was obtained the patient was taken to the operating room and placed in the supine position. After successful intubation the abdomen was sterilely prepped and draped in usual fashion. A periumbilical incision was made with an 11 blade scalpel and carried down through the soft tissue using electrocautery. The anterior rectus fascia was opened using electrocautery and 2 #0 Vicryl stay sutures were placed. The peritoneum was elevated with hemostats and incised under direct vision using Metzenbaum scissors. A finger sweep was performed and a 12 mm Rico trocar was placed. The abdomen was insufflated to 18 mmHg. The laparoscope was inserted and the abdomen was examined in 360. No gross abnormalities were identified. A subxiphoid 5 mm port and 2 right upper quadrant 5 mm ports were placed under direct vision. The patient was placed in a reverse Trendelenburg position and slightly airplaned to the left. The gallbladder was grasped and elevated superiorly and laterally. A [place] dissector was used to take down adhesions around the neck of the gallbladder. The cystic duct was identified and skeletonized. It was dilated and far too large to place a clip around. I therefore converted my subxiphoid port to a 12 mm port and used a 60 mm brown cartridge stapler to transect the cystic duct. In similar fashion the cystic artery was identified and skeletonized clipped and divided. There was a posterior branch that was clipped and divided as well . the gallbladder was removed from the gallbladder fossa with electrocautery. A small hole was made in the gallbladder during this process releasing a small amount of bile. This was immediately suctioned and irrigated out. The gallbladder was placed into an Endo Catch bag. Thorough irrigation was performed. At the end of the procedure there was adequate hemostasis and no evidence of any bile leaks. A final look around the abdomen showed no other abnormalities. The gallbladder and trochars were all removed and the abdomen was desufflated. The fascia of the camera port was closed using 0 Vicryl in a [id number] fashion. All the wounds were irrigated and closed using 4-0 Monocryl. Marcaine was injected around them for postoperative analgesia and skin glue used as a dressing. The patient was awakened, extubated and transferred to recovery in stable condition. My physician's oceanographer assistant was present throughout the entire case... helped with prepping the patient. With exposure for trocar placement, as well as retracted the gallbladder throughout the case and also assisted with wound closure and dressing placement. I attest to the content of the Intraoperative Record and any orders documented therein. Any exceptions are noted below.
[2021-11-22] MEDS ORDERED: MoRPHine SULFATE 4 MG/ML 1 ML CARP\\VIAL IV PRN (15:34)
[2021-11-22] MEDS ORDERED: MoRPHine SULFATE 2 MG/ML CARP IV PRN (15:34)
[2021-11-22] MEDS ORDERED: oxyCODONE/ACETAMINOPHEN 5mg/325mg TAB PO PRN ×2 (15:34)
[2021-11-22] MEDS: AMOXICILLIN/CLAVULANATE 500 MG TAB PO SCH (17:57)
--- NOTE | 2021-11-22 18:05 | Hospitalist Progress Note ---
Date of Service November 22, 2021 Assessment & Plan (1) Sepsis: (2) Atrial fibrillation with RVR: (3) Complaint of melena: (4) Radiation proctitis: (5) Acute kidney injury (MERNA) with acute tubular necrosis (ATN): (6) Elevated LFTs: (7) Choledocholithiasis: (8) Positive Anaplasma serology: Plan: Patient is 81 y/o M with PMH HTN, prostate CA, CAD s/p CABG, HTN, dyslipidemia, CKD III presented to ER with c/o fatigue x several days. Couple of loose stools, nausea yesterday. Denies CP, SOB, abdominal pain. C/O dysuria and urinary frequency past couple of days. In ER patient febrile 38.3C, tachycardic, hypotensive. WBC: 2.7 (baseline in 5s), thrombocytopenia, elevated LFTs, lactate: 2.5, procalcitonin: 2.3, UA without leukocytes, nitrites or bacteria. Negative SARS-CoV-2 NAAT test CXR: no active disease in the chest. CT ABD/PELVIS: Layering gallstones including stones in the cystic duct. There is mild gallbladder wall thickening.If there is clinical concern for cholecystitis, ultrasound or HIDA scan can be performed. In ER resuscitated with IVF with continued hypotension. Started on pressors and broad spectrum abx. Peripheral smear unremarkable, negative Lyme, Anaplasma PCR positive, babesia PCR negative Severe sepsis/septic shock- suspected biliary source - Procal 2.36, WBC 2.7, lact 2.5, LFTs elevated/transaminitis, CXR negative, UA not suggestive of UTI, blood clx negative so far, peripheral smear negative, - CT as above, MRCP could not be done due to claustrophobia, HIDA scan negative on 11/20 - On levophed->phenylephrine-->stable off for pressor support - Continue cefepime and flagyl Day 7 -GI plans for EUS/ERCP today 11/21: plan for EUS plus or minus ERCP later today. Possible discharge after procedure. 11/22: lap day today, doing well post op. Tolerating PO. Pain well controlled. Acute blood loss anemia with ongoing hematochezia--anemic but stable. EGD last night without source of upper GI bleed. Definitive management per GI team likely a outpatient if ongoing hematochezia. Thrombocytopenia 2/2 consumptive process in sepsis resolved. MERNA likely 2/2 ATN-resolved to 1.8 today Afib with RVR, newly diagnosed in ED- suspected secondary to his severe sepsis -cont metoprolol -Cardiology following- holding off on anticoag due to GI bleeding. Converted to sinus rhythm with ectopy. Hyponatremia- resolved Hematochezia- patient states from radiation treatment. This has become more like melena. Plan as above. Elevated trop- likely demand ischemia, trop trend flat, no chest pain, cardio following-no further workup at this time. HTN- cont to hold home lisinopril with elevated creatinine. CAD S/p CABG in 2013 Prostate CA S/p radiation, previous hormone therapy- Hold home silodosin for now DVT Prophylaxis- Heparin SQ-held in setting of GI bleeding and thrombocytopenia. Dispo- Full Code Carolina Connelly DO [facility] Hospitalist Admission and Anticipated Discharge Date Admission Date: November 16, 2021 Subjective 81 yo M presented with septic shock on arrival, thought secondary to a biliary source. Stones found in gallbladder and cystic duct on imaging, however, limitations with MRCP as patient is claustrophobic and declines and couldn't perform HIDA while on pressors. Still having hematochezia Plan for EUS/ERCP later this afternoon denies abdominal pain, CP, SOB or other symptoms Review of Systems Review of Systems: All systems reviewed negative except as indicated above. Physical Exam Physical Exam: CONSTITUTIONAL: WNWD, vitals as above, generally well- appearing, NAD EYES: normal conjunctivae, no scleral icterus ENT: external ear and nose normal, MMM NECK: trachea midline, RESPIRATORY: clear to auscultation bilaterally, no crackles, rales or wheezes, normal respiratory effort CARDIOVASCULAR: regular rate and rhythm, S1 and 2 heard without murmurs, gallops or rubs, no JVD, no peripheral edema, CHEST: inspection of chest was normal GASTROINTESTINAL: soft, nontender, ND, no guarding MUSCULOSKELETAL: strength 5/5 throughout, head is normocephalic and atraumatic, SKIN: warm and dry, NEUROLOGIC: CN 2-12 grossly intact, no sensory deficit, normal cognition, normal speech, no tremor PSYCHIATRIC: alert cooperative and oriented to person, place and time. Euthymic mood, makes good eye contact, language grossly intact, recent and remote memory grossly intact. Results & Data Results & Data ([facility]) Vital Signs (Past 12 Hours) Vital Signs Temp Pulse Pulse Pulse Resp BP Pulse Ox 11/22/21 15:36 36.5 C 81 16 138/79 92 11/22/21 15:15 36.5 C 77 20 139/72 93 11/22/21 15:05 79 19 125/91 92 11/22/21 14:55 91 H 27 H 129/79 91 11/22/21 14:45 99 H 28 H 148/92 H 94 11/22/21 14:37 36.2 C L 118 H 24 138/80 93 11/22/21 12:51 83 20 148/81 H 99 11/22/21 12:35 36.7 C 81 20 153/101 H 99 11/22/21 11:47 37 C 75 18 135/83 96 11/22/21 08:00 36.9 C 74 81 18 133/85 97 Laboratory Results Short CBC 11/22/21 Range/Units 10:05 WBC 7.09 (4.8-10.8) K/uL Hgb 8.7 L (14.0-18.0) g/dL Hct 25.4 L (42-52) % Plt Count 269 (130-400) K/uL BMP 11/22/21 10:05 Sodium 143 Potassium 4.0 Chloride 113 H Carbon Dioxide 24 BUN 32 H Creatinine 1.68 H Glucose 130 H Calcium 8.7 Liver Function 11/22/21 Range/Units 10:05 Total Bilirubin 0.8 (0.2-1.0) mg/dl AST 70 H (13-39) U/L ALT 59 H (7-52) U/L Alkaline Phosphatase 63 (34-104) U/L Albumin 3.3 L (3.4-5.0) gm/dl Medications Administered Current Inpatient Medications Amoxicillin/Clavulanate Potassium (Amoxicillin/Clavulanate 500 Mg Tab) 1 tab PO BIDM HUMZA Stop: 11/27/21 16:59 Last Admin: 11/22/21 17:57 Dose: 1 tab Documented by: Atorvastatin Calcium (Atorvastatin 40 Mg Tab) 40 mg PO PM HUMZA Stop: 12/16/21 20:59 Last Admin: 11/21/21 20:44 Dose: 40 mg Documented by: Bimatoprost (Bimatoprost 0.01% Op Soln 2.5 Ml Btl) 1 drops OP QPM [facility] Stop: 12/16/21 20:59 Last Admin: 11/21/21 20:41 Dose: 1 drops Documented by: Docusate Sodium (Docusate Sodium 100 Mg Cap) 100 mg PO DAILY PRN PRN Reason: Constipation Stop: 12/22/21 11:30 Ferrous Sulfate (Ferrous Sulfate 325 Mg Tab) 325 mg PO QAM [facility] Stop: 12/17/21 08:59 Last Admin: 11/22/21 08:22 Dose: Not Given Documented by: Metoprolol Tartrate (Metoprolol Tartrate 25 Mg Tab) 25 mg PO BID [facility] Stop: 12/16/21 20:59 Last Admin: 11/22/21 08:28 Dose: 25 mg Documented by: Miscellaneous (*Silodosin 8 Mg Capsule*Order Awaiting Action) 1 ea N/A QS [facility] Stop: 12/22/21 15:59 Last Admin: 11/22/21 15:58 Dose: Not Given Documented by: Morphine Sulfate (Morphine Sulfate 2 Mg/Ml Carp) 2 mg IV Q2H PRN; Protocol PRN Reason: Pain(1-5/10) Stop: 12/06/21 15:33 Morphine Sulfate (Morphine Sulfate 4 Mg/Ml 1 Ml Carp\Vial) 4 mg IV Q2H PRN; Protocol PRN Reason: Pain (6-10/10) Stop: 12/06/21 15:33 Oxycodone/Acetaminophen (Oxycodone/Acetaminophen 5mg/325mg Tab) 1 tab PO Q4H PRN PRN Reason: Pain (1-5/10) Stop: 12/06/21 15:33 Oxycodone/Acetaminophen (Oxycodone/Acetaminophen 5mg/325mg Tab) 2 tab PO Q4H PRN PRN Reason: Pain (6-10/10) Stop: 12/06/21 15:33 Pantoprazole Sodium (Pantoprazole 40 Mg Tab) 40 mg PO QAM [facility] Stop: 12/23/21 08:59
[2021-11-22] MEDS: BIMATOPROST 0.01% OP SOLN 2.5 ML BTL OP SCH (20:26)
[2021-11-22] MEDS: DOXYCYCLINE HYCLATE 100 MG CAP PO SCH (20:26)
[2021-11-22] MEDS: ATORVASTATIN 40 MG TAB PO SCH (20:33)
[2021-11-23] MEDS: DOXYCYCLINE HYCLATE 100 MG CAP PO SCH (05:58)
[2021-11-23 07:33] LABS: Hematocrit (blood only) 26.7 % (42-52); Hemoglobin 8.8 g/dL (14.0-18.0); Mean Corpuscular Hemoglobin 29.9 pg (25-34); Mean Corpuscular Volume 90.8 fL (80-100); Mean Platelet Volume 10.7 fL (7.4-10.4); Platelet Count 311 K/uL (130-400); RDW Coefficient of Variation 14.1 % (11.5-14.5); RDW Standard Deviation 47.2 fL (36.4-46.3); Red Blood Count 2.94 M/uL (4.7-6.1); White Blood Count 9.74 K/uL (4.8-10.8)
[2021-11-23 07:50] LABS: Albumin Globulin Ratio 1.3 (0.9-2); Albumin Level 3.5 gm/dl (3.4-5.0); BUN Creatinine Ratio 20.3 (10-20); Bilirubin,Total 0.9 mg/dl (0.2-1.0); Calcium 8.7 mg/dl (8.5-10.1); Creatinine Clr Calc Pharmacy 37.9 ml/min; Est GFR (African American) 47.5 ml/min; Globulin 2.7 gm/dl (2.5-4.0); Potassium 4.2 mmol/L (3.5-5.1); Total Protein 6.2 gm/dl (6.0-8.3)
--- NOTE | 2021-11-23 08:44 | Surgery Progress Note ---
Date of Service November 23, 2021 Assessment & Plan (1) Hx laparoscopic cholecystectomy: Plan: Doing well postoperative day #1 From my standpoint he could be discharged at any time. Follow-up with me in 1 week. Instructions given Admission and Anticipated Discharge Date Admission Date: November 16, 2021 Subjective Patient seen. Doing well. No complaints. Pain controlled Physical Exam Physical Exam: Alert and oriented no acute distress Abdomen is soft. Incisions look good Results & Data ([facility]) Vital Signs (Past 12 Hours) Vital Signs Temp Pulse Resp BP Pulse Ox 11/23/21 07:30 36.8 C 82 17 157/75 H 96 11/22/21 22:30 36.8 C 77 16 163/89 H 95 PG Care Time/CCT Total # of Minutes Spent Total Time Spent with Patient: Total time spent is greater than 50% in coordination of care (as documented) at patient's floor/unit and/or counseling patient: Coding Level of Care Code None Diagnoses Hx laparoscopic cholecystectomy Z90.49
[2021-11-23] MEDS: AMOXICILLIN/CLAVULANATE 500 MG TAB PO SCH (08:54)
[2021-11-23] MEDS: FERROUS SULFATE 325 MG TAB PO SCH (08:54)
[2021-11-23] MEDS: METOPROLOL TARTRATE 25 MG TAB PO SCH (08:54)
[2021-11-23] MEDS ORDERED: PANTOprazole 40 MG TAB PO SCH (09:00)
--- NOTE | 2021-11-23 11:52 | Discharge Summary ---
Date of Service November 23, 2021 Admission HPI Per Admitting Provider Patient is 81 y/o M with PMH HTN, prostate CA, CAD s/p CABG, HTN, dyslipidemia, CKD III presented to ER with c/o fatigue. Past 3 days with increased fatigue and reports feels a little SOB. Has dry cough for awhile, no worsening. Past 3 days with dysuria, urinary frequency. Denies known fever or chills. Denies known tick bite. While in ER nausea, no vomiting. Loose stools on Friday, . No melena, hematochezia. History rectal bleeding after prostate radiation treatment. Reports this was approximately 3 years ago. Denies ill contacts, diaphoresis, recent melena, hematochezia, GORDON, dizziness, syncope, vision c hanges, neck pain, CP, orthopnea, palpitations, hemoptysis, sore throat, choking, otalgia, rhinorrhea, abdominal pain, paresthesias, weakness, extremity weakness, extremity edema, rashes, hematuria In ER patient febrile 38.3C, tachycardic, hypotensive. WBC: 2.7 (baseline in 5s), thrombocytopenia, elevated LFTs, lactate: 2.5, procalcitonin: 2.3, UA without leukocytes, nitrites or bacteria In ER resuscitated with IVF with continued hypotension. Was found to be in A. fib RVR. Given dose IV Lopressor and started on Levophed. Patient given cefepime. Patient admitted to ICU Principal Diagnosis severe sepsis atrial fibrillation with rapid ventricular response hematochezia h/o radiation proctitis anaplasmosis Acute kidney injury with acute tubular necrosis elevated LFTs choledocholithiasis acute blood loss anemia Discharge Exam CONSTITUTIONAL: WNWD, vitals as above, generally well-appearing, NAD EYES: normal conjunctivae, no scleral icterus ENT: external ear and nose normal, MMM NECK: trachea midline, RESPIRATORY: clear to auscultation bilaterally, no crackles, rales or wheezes, normal respiratory effort CARDIOVASCULAR: regular rate and rhythm, S1 and 2 heard without murmurs, gallops or rubs, no JVD, no peripheral edema, CHEST: inspection of chest was normal GASTROINTESTINAL: soft, nontender, ND, no guarding MUSCULOSKELETAL: strength 5/5 throughout, head is normocephalic and atraumatic, SKIN: warm and dry, NEUROLOGIC: CN 2-12 grossly intact, no sensory deficit, normal cognition, normal speech, no tremor PSYCHIATRIC: alert cooperative and oriented to person, place and time. Euthymic mood, makes good eye contact, language grossly intact, recent and remote memory grossly intact. Discharge Data Allergies Allergy/AdvReac Type Severity Reaction Status Date / Time meperidine AdvReac Mild PASS OUT Verified 06/16/21 09:57 Consultations 11/16/21 12:31 ED Decision to Admit Stat 11/16/21 15:05 Consult Gastroenterology Routine Consult General Surgery Routine 11/16/21 16:21 Consult Cardiology Routine Consult Gastroenterology Routine Consult On Site Nurse Routine Procedures Performed Operation Date: 11/21/21 08:35 Actual Procedures s Esophagogastroduodenoscopy - Artemio Snowden MD p Endoscopic Ultrasonography Upper - Artemio Snowden MD p Endoscopic Retrograde Cholangiopancreato - Artemio Snowden MD Operation Date: 11/22/21 11:25 Actual Procedures p Laparoscopic Cholecystectomy(Not Applicable) - Jeffry Pritchett, Ordered Studies 11/16/21 11:36 CT abd pelvis wo con Stat 11/21/21 [place] ERCP biliary ductal Routine 11/21/21 14:58 US upper EUS PACS images Routine Hospital Course (1) Sepsis: (2) Atrial fibrillation with RVR: (3) Complaint of melena: (4) Radiation proctitis: (5) Acute kidney injury (MERNA) with acute tubular necrosis (ATN): (6) Elevated LFTs: (7) Choledocholithiasis: Patient is 81 y/o M with PMH HTN, prostate CA, CAD s/p CABG, HTN, dyslipidemia, CKD III presented to ER with c/o fatigue x several days. Couple of loose stools, nausea yesterday. Denies CP, SOB, abdominal pain. C/O dysuria and urinary frequency past couple of days. In ER patient febrile 38.3C, tachycardic, hypotensive. WBC: 2.7 (baseline in 5s), thrombocytopenia, elevated LFTs, lactate: 2.5, procalcitonin: 2.3, UA without leukocytes, nitrites or bacteria. Negative SARS-CoV-2 NAAT test CXR: no active disease in the chest. CT ABD/PELVIS: Layering gallstones including stones in the cystic duct. There is mild gallbladder wall thickening.If there is clinical concern for cholecystitis, ultrasound or HIDA scan can be performed. In ER resuscitated with IVF with continued hypotension. Started on pressors and broad spectrum abx. Peripheral smear unremarkable, negative Lyme, Anaplasma PCR pending, babesia PCR negative 11/21: plan for EUS plus or minus ERCP later today. Possible discharge after procedure. Severe sepsis/septic shock- suspected biliary source - Procal 2.36, WBC 2.7, lact 2.5, LFTs elevated/transaminitis, CXR negative, UA not suggestive of UTI, blood clx negative so far, peripheral smear negative, - CT as above, MRCP could not be done due to claustrophobia, HIDA scan negative on 11/20 - On levophed->phenylephrine-->stable off for pressor support - Continue cefepime and flagyl Day 7 -GI plans for EUS/ERCP today Acute blood loss anemia with ongoing hematochezia--Hb 11.2/33-->8.9/25 now (low but stable compared to yesterday). Melena described, seems to be intermittent per patient. PPI BID. Definitive management per GI team likely a outpatient. Thrombocytopenia 2/2 consumptive process in sepsis resolved. MERNA likely 2/2 ATN-resolved to 1.8 today Afib with RVR, newly diagnosed in ED- suspected secondary to his severe sepsis -cont metoprolol -Cardiology following- holding off on anticoag due to GI bleeding. Converted to sinus rhythm with ectopy. Hyponatremia- resolved Hematochezia- patient states from radiation treatment. This has become more like melena. Plan as above. Elevated trop- likely demand ischemia, trop trend flat, no chest pain, cardio following-no further workup at this time. HTN- cont to hold home lisinopril with elevated creatinine. CAD S/p CABG in 2013 Prostate CA S/p radiation, previous hormone therapy- Hold home silodosin for now DVT Prophylaxis- Heparin SQ-held in setting of GI bleeding and thrombocytopenia. Dispo- cont PCU, likely to home in am following EUS. PT/OT evaluations pending. Full Code Carolina Connelly DO [facility] Hospitalist Total Time Total Time Spent Total Time Spent (In Minutes): 60 Discharge Plan Discharge Items Patient Disposition: Home - Self-Care Reason For Visit: DIZZINESS, WEAKNESS, SUSPECTED UTI Discharge Diagnosis: severe sepsis atrial fibrillation with rapid ventricular response hematochezia h/o radiation proctitis anaplasmosis Acute kidney injury with acute tubular necrosis elevated LFTs choledocholithiasis acute blood loss anemia Condition on Discharge: Good Activity: Per Instructions section Lifting: No more than 10 pounds Bathing Comment: may shower; no soaking in tubs/pools Exercise/Sports: Wait until after follow-up appointment Driving/Machine Use: no driving while taking any narcotics for pain Non-emergency contact: Primary Care Provider Call non-emergency contact if: you have any medication questions, your symptoms worsen, your pain is not controlled, your pain is concerning for you, you have a fever, your temperature is above 101.5, your wound has increased redness, your wound has increased drainage and your wound pain has increased Follow-up/Referrals: Jeffry Pritchett DO [Surgeon] - (Please call to schedule follow up in clinic within 2 weeks) Bhaskar Day DO [Primary Care Provider] - (Date & Time 11/27/2021 11:00 AM Provider Bhaskar Day DO Department [facility] ) Diet: Heart Healthy Addtl Attending Provider Instructions: Please take all medications as instructed on discharge list below. You were given an additional 4 days of Augmentin for your biliary tract infection. You were also found to have evidence of anaplasma DNA in your blood. Therefore, you are being given 10 days of doxycycline to complete for a presumed tick borne illness. Regarding your atrial fibrillation, your were not placed on anticoagulation (blood thinners), but this is indicated. It is being held given your ongoing blood in the stool. Once the bleeding is stopped or investigated further, you may consider starting blood thinners with [facility] Cardiology in a follow-up appointment so that you have protection from stroke. Please follow all activity restrictions as described by Dr. Pritchett and contact his office to set up an appointment in two weeks for a post-operative wound check. His office is at It is recommended that you followup with your primary care physician within one week of hospital discharge. This is to ensure you are doing well from a pain standpoint and that your wounds look good. Also, this visit will be important to ensure close followup with cardiology and gastroenterology and to discuss further your stroke risk with atrial fibrillation. Bloodwork may also be repeated at this time. It was a pleasure taking care of you! Please call if you have any questions or problems. You can reach a [facility] hospitalist on duty at [facility] 24 hours a day by calling [phone]. Take care of yourself. Carolina Connelly DO [facility] Hospitalist Pending Studies at Discharge: Yes Studies:: surgical pathology Stand-Alone Forms: My [facility] Medications and DC Order Prescriptions: New amoxicillin-pot clavulanate 500-125 mg Tablet 1 tab PO BIDM Qty: 8 RF: 0 doxycycline hyclate 100 mg Capsule 100 mg PO Q12H Qty: 20 RF: 0 oxycodone-acetaminophen [Percocet] 5-325 mg Tablet 1 tab PO Q4H PRN (Reason: severe pain (scale score 7-10)) Qty: 10 RF: 0 Continued clobetasol 0.05 % cream 1 appln TOP BID PRN (Reason: itchy) RF: 0 docusate sodium [Colace] 100 mg capsule 100 mg PO DAILY PRN (Reason: Constipation) RF: 0 turmeric root extract 500 mg capsule 500 mg PO BID RF: 0 ferrous sulfate [FeroSul] 325 mg (65 mg iron) tablet 325 mg PO QAM RF: 0 lisinopril 10 mg tablet 10 mg PO PM RF: 0 bimatoprost [Lumigan] 0.01 % drops 1 drops OP QPM RF: 0 nitroglycerin 0.4 mg tablet, sublingual 0.4 mg SL Q5M PRN (Reason: Chest Pain) RF: 0 atorvastatin 40 mg tablet 40 mg PO PM RF: 0 acetaminophen [Tylenol Extra Strength] 500 mg Tablet 1,000 mg PO Q6H PRN (Reason: Pain) RF: 0 metoprolol tartrate 25 mg tablet 25 mg PO BID RF: 0 silodosin 8 mg capsule 8 mg PO DAILY RF: 0 famotidine 20 mg Tablet 20 mg PO DAILY PRN (Reason: Heartburn) RF: 0 Discharge Orders: Discharge Order (Routine); Ordered 11/23/21 Ordered By: Carolina Connelly Admission Data Admit Date/Time: 11/16/21 13:10 Attending Provider: Carolina Connelly Admit Provider: Jade Martinez I. Primary Care Provider: Bhaskar Day Other Providers: Hair Dai ; Jade Martinez I. ; Jeffry Pritchett ; Misael Briseno ; Eliot Pearce
== END 2021-11-23 12:34 | disposition home or self-care (01) | DRG 853 ==
LOC: ED 10:11 → 1E 13:10 → SUATTDRO 13:10 → 1E 15:20 → 2E 11-19 18:00 → 3E 11-22 22:52

== ENCOUNTER 2025-03-20 17:24 | Inpatient (IN) ==
--- NOTE | 2025-03-20 17:51 | Emergency Department Note ---
Impression & Plan Severe sepsis, Sigmoid diverticulitis, Acute kidney injury, Hypoxia ED Provider Note Name: GAY BALDWIN Age: 84 Sex: Male Arrives Via: Walk-In Informant: Patient, daughter ED Provider: Jose Newsome MD Chief Complaint: illness Impression: As per impressions above Medical Decision Making: Pleasant 84-year-old gentleman arrives for evaluation of illness. Patient arrives hypotensive, tachycardic and febrile. He states he has left lower lumbar tenderness palpation. Septic workup initiated. He was given 2 L normal saline bolus for resuscitation. He was given empiric IV Zosyn once blood cultures were obtained. A CT of the abdomen pelvis was obtained which reveals left lower quadrant inflammatory findings consistent with sigmoid diverticulitis. Laboratory workup reveals elevated white blood cell count. He is also exhibiting findings of acute renal injury with a significantly elevated creatinine. Patient tolerated the initial 2 L well. On repeat examination at 8:55 PM both liters have completed. He has a blood pressure of 135/67. Heart rate is 88. He states he is feeling much better. Cap refill is good. Sepsis resuscitation: Patient was given 2 L normal saline bolus for resuscitation. She was not given the full 30/kg IV fluids given his acute renal failure and improvement after the first 2 L. Sepsis reevaluation: Patient was evaluated by me at 9 PM for sepsis repeat exam. Triage/Nursing Notes reviewed by Me External Chart Review by me: Reviewed a discharge summary from 11/19/2021 discussing patient's previous hospitalization for acute severe sepsis, anaplasmosis Differential:Viral syndrome, otitis, pharyngitis, pneumonia, influenza, meningitis, urinary tract infection, sepsis, bacteremia, as well as other pathologies. Vital Signs: reviewed and remarkable for fever, tachy, hypotensive Interventions: Normal saline bolus 2 L IV, Tylenol IV, Zosyn 4.5 g IV Labs:ED labs Reviewed by me and remarkable for elevated white blood cell count, normal lactic acid, elevated procalcitonin, elevated creatinine Imagin view chest x-ray no acute infiltrate appreciated as per my interpretation. CT of the abdomen pelvis without contrast. As per my informal interpretation. There is a small amount of stranding throughout the left lower sigmoid diverticular area. No evidence of perforation or abscess at this time. Confirmed by radiologist EKG:As per my interpretation. Indication sepsis. Sinus tachycardia 103 bpm with prolonged intraventricular block. No ectopy nor ischemia appreciated. When compared to EKG of 03/06/2025 the heart rate has increased. Cardiac/Tele Monitoring: Cardiac Monitoring: An Order was placed for continuous cardiac monitoring. The monitor shows a rate of 105 with a sinus tach rhythm. Consults:Dr Jeff HAYWOOD Hospitalist Plan: Disposition:Hospitalization. Condition: Fair History of Present Illness: 84-year-old gentleman arrives for evaluation illness. Patient with 2-3 days worsening fevers, chills, fatigue. Increasing left lower quadrant abdominal pain. Associated with lack of appetite. States he feels very washed out and tired. Due to worsening illness Ricardo in the ER for further evaluation. No medications prior to arrival. He denies any cough, congestion, headache, neck pain, neck stiffness, vomiting, urinary symptoms or other concerning signs or symptoms. Past Medical History:See Below Home Medications:See Below Allergies: Meperidine Vitals:Blood Pressure: 95/63, Pulse 104, RR 20, T 37.9C, O2 92% on RA Physical Exam: GENERAL: Patient is tired/elderly/dehydrated appearing and in mild distress. RESPIRATORY: No dyspnea. Clear to auscultation and equal bilaterally. CARDIOVASCULAR: Tachy.No murmur appreciated. GASTROINTESTINAL: Mild LLQ TTP, otherwise abdomen soft, non-tender, no peritonitis. BACK: No midline tenderness, no CVA tenderness EXTREMITIES: Normal motion all extremities, no cyanosis, no edema. NEUROLOGIC: Alert and oriented. No focal neurologic deficits appreciated SKIN: No rash, no jaundice, no diaphoresis. PSYCH: Appropriate GCS: 15 ED Course: Times/Reassessments: Repeat evaluations reveals patient's blood pressure is improving. He states he is feeling much better. He is breathing comfortably throughout this. Patient's oxygenation was a bit low throughout the beginning of this stay. This does not seem to have changed with the fluids. He does not have any evidence of fluid overload on chest x-ray or infiltrate patient thus hypoxia may be secondary to severe sepsis. Critical Care: I have personally spent 50 minutes of critical care time in the direct management of this patient. Severe sepsis with acute renal failure, hypoxia, hypotension secondary to sigmoid diverticulitis. This was a life/limb threatening event. This 50 minutes is in excess of all separately billable procedures. Jose Newsome MD Past Med/Surg History Problem List (Updated 03/20/25 @ 21:00 by Jose Newsome MD) Hypoxia (Acute) Acute kidney injury (Acute) Sigmoid diverticulitis (Acute) Severe sepsis (Acute) Urinary tract infection (Acute) Encounter for pre-operative examination Positive Anaplasma serology Medical History DDD (degenerative disc disease) CKD (chronic kidney disease), stage III GERD (gastroesophageal reflux disease) Prostate cancer metastatic to bone Dx 2018 - current lupron therapy, hx of radiation Glaucoma HTN (hypertension) HLD (hyperlipidemia) Atrial fibrillation Dx 2021 in setting of anaplasmosis, sepsis @ [facility]. Follows with Dr. Arcos. Radiation proctitis CAD (coronary artery disease) s/p CABG x3 (2013) Prostate CA Glaucoma B/L Eyes Ischemic heart disease Polymyalgia rheumatica Surgical History History of sigmoidoscopy History of colonoscopy History of cardiac catheterization 2013 [facility] -- CABG History of ERCP Hx laparoscopic cholecystectomy Laparoscopic Cholecystectomy (11/22/21): Grade 1 view, MAC#3, ETT 7.5 at [facility]. Per anesthesia post-op progress note, "The patient is now awake and comfortable. He is in sinus rhythm and his vital signs are all stable. In the OR the patient had been noted to go into afib with RVR (of which he has a history). His HR went to the 140s. His procedure had initially been under MAC but then a decision was made to do an ERCP so the patient was intubated. It was during this procedure that the [facility] P[facility]TER called me into the room for the rapid heart rate. The patient was treated with esmolol. He was slow to wake up but eventually following commands and extubated in the OR. Once he came to recovery, his vital signs stabilized." History of kidney surgery 1994 - Ureteral Stone Surgery Status post repair of hydrocele Drainage as a youth History of prostate biopsy History of coronary artery bypass graft x 3 2013 Family History Mother , Passed age 87 of CVA Breast cancer, Onset Age: 50 Father , Passed age 64 of Lung Disease No problems noted. Brother No problems noted. Sister , Passed age 58 of breast cancer/head and neck cancer No problems noted. Sister No problems noted. Sister No problems noted. Daughter No problems noted. Other No family history of adverse response to anesthesia Social History Smoking Status: Former smoker Tobacco Type: Cigarettes Second Hand Exposure: Yes (hx); Do You Dip or Chew Tobacco: No (quit 15-20 years ago); Hx Alcohol Use: Yes Alcohol type: beer Alcohol Intake Frequency: 2-4 x/Month Hx Substance Use: No Preferred Language: Bhutanese Communication Ability: Effective Visual Impairment: No Limitations Hearing Ability: Normal Blanking Press Operator Required: No Beliefs That Will Affect Care: None marital status: Current Living Situation: Spouse current occupational status: retired current occupation: Retired [employer] Feels Safe at Home: Yes caffeine: Yes (2 cups of coffee/day ) during the past year weight has: remained stable Assistive Devices: Glasses Allergies Allergies Allergy/AdvReac Type Severity Reaction Status Date / Time sulfamethoxazole AdvReac Intermediate Hypotension Unverified 03/20/25 20:13 [From Bactrim] trimethoprim [From Bactrim] AdvReac Intermediate Hypotension Unverified 03/20/25 20:13 meperidine AdvReac Mild PASS OUT Verified 01/11/24 08:44 Home Meds Home Medications Medication Instructions Recorded Confirmed bimatoprost 0.01 % eye drops 1 drops OPB QPM 07/08/18 03/20/25 (Lumigan) nitroglycerin 0.4 mg sublingual 0.4 mg sublingual Q5M PRN Chest 07/08/18 03/20/25 tablet Pain clobetasol 0.05 % topical cream 1 appln topical BID PRN itchy 04/19/19 03/20/25 docusate sodium 100 mg capsule 100 mg PO DAILY PRN Constipation 04/25/19 03/20/25 (Colace) acetaminophen 500 mg tablet 1,000 mg PO Q6H PRN Pain 06/16/21 03/20/25 (Tylenol Extra Strength) atorvastatin 40 mg tablet 40 mg PO PM 06/16/21 03/20/25 metoprolol tartrate 25 mg tablet 25 mg PO QPM 06/16/21 03/20/25 cholecalciferol (vitamin D3) 50 50 mcg PO QAM 01/11/22 03/20/25 mcg (2,000 unit) capsule (Vitamin D3) leuprolide (4 month) 30 mg (4 30 mg IM UD ##0 01/11/22 03/20/25 month) intramuscular syringe kit (Lupron Depot) betamethasone dipropionate 0.05 % 1 applic topical DAILY PRN Itching 01/11/24 03/20/25 topical ointment silodosin 8 mg capsule 8 mg PO DAILY 01/11/24 03/20/25 amiodarone 200 mg tablet 200 mg PO DAILY 03/06/25 03/20/25 Results & Data (ED) Vital Signs Vital Signs - 24 hr 03/20/25 17:39 03/20/25 18:07 03/20/25 18:18 Temperature 37.9 C H Temperature Source Oral Pulse Rate 104 H 105 H Pulse Rate [Apical] Respiratory Rate 20 Respiratory Effort / Characteristics Respiratory Depth Blood Pressure 95/63 L Blood Pressure [Right Arm] Blood Pressure Mean 73 Blood Pressure Mean [Right Arm] Blood Pressure Position Sitting Pulse Oximetry 92 87 L Oxygen Delivery Method Room Air Room Air Oxygen Flow Rate Sepsis Recent Fever Within 48 Hours Yes Sepsis New/Unexplained Change in Mental Status No Sepsis Action Taken by Nursing Physician Notified Oxygen Flow Rate - Titration 2 Pulse Oximetry Post Tiitration 93 03/20/25 18:33 03/20/25 18:34 03/20/25 18:51 Temperature 37.2 C Temperature Source Oral Pulse Rate 122 H Pulse Rate [Apical] 131 H 92 H Respiratory Rate 22 25 H 20 Respiratory Effort / Characteristics Spontaneous Non-Labored Spontaneous Respiratory Depth Normal Blood Pressure Blood Pressure [Right Arm] 98/62 L 95/56 L Blood Pressure Mean Blood Pressure Mean [Right Arm] 74 69 Blood Pressure Position Pulse Oximetry 95 95 96 Oxygen Delivery Method Nasal Cannula Nasal Cannula Nasal Cannula Oxygen Flow Rate 3 3 3 Sepsis Recent Fever Within 48 Hours Sepsis New/Unexplained Change in Mental Status Sepsis Action Taken by Nursing Oxygen Flow Rate - Titration Pulse Oximetry Post Tiitration 03/20/25 19:00 03/20/25 19:30 Temperature Temperature Source Pulse Rate 105 H 88 Pulse Rate [Apical] Respiratory Rate 15 20 Respiratory Effort / Characteristics Respiratory Depth Blood Pressure 90/51 L 95/58 L Blood Pressure [Right Arm] Blood Pressure Mean 64 70 Blood Pressure Mean [Right Arm] Blood Pressure Position Pulse Oximetry 97 96 Oxygen Delivery Method Nasal Cannula Nasal Cannula Oxygen Flow Rate 2 2 Sepsis Recent Fever Within 48 Hours Sepsis New/Unexplained Change in Mental Status Sepsis Action Taken by Nursing Oxygen Flow Rate - Titration Pulse Oximetry Post Tiitration Laboratory Data 03/20/25 19:57 03/20/25 18:00 Lab Results 03/20/25 03/20/25 03/20/25 Range/Units 18:00 18:08 19:57 WBC 15.60 H (4.8-10.8) K/ul RBC 3.56 L (4.70-6.10) M/uL Hgb 10.4 L 9.7 L (14.0-18.0) g/dl POC Hgb 10.5 L (14.0-18.0) g/dl Hct 31.7 L 29.9 L (42.0-52.0) % POC Hct 31 L (42-52) % MCV 89.0 (80.0-100.0) fL MCH 29.2 (25.0-34.0) pg MCHC 32.8 (32.0-36.0) g/dL RDW Std Deviation 50.6 H (36.4-46.3) fL RDW Coeff of Miquel 15.5 H (11.5-14.5) % Plt Count 203 (130-400) K/uL MPV 11.7 (9.4-12.4) fL Immature Gran % (Auto) 1.7 % Neut % (Auto) 83.1 % Lymph % (Auto) 8.3 % Sac % (Auto) 6.0 % Eos % (Auto) 0.7 % Baso % (Auto) 0.2 % Neut # (Auto) 12.97 H (1.40-6.50) K/uL Lymph # (Auto) 1.29 (1.20-3.40) K/uL Sac # (Auto) 0.94 H (0.11-0.59) K/uL Eos # (Auto) 0.11 (0.00-0.50) K/uL Baso # (Auto) 0.03 (0.00-0.20) K/uL Immature Gran # (Auto) 0.26 H (0.01-0.20) K/uL VBG pH 7.34 L (7.36-7.41) VBG pCO2 39 (38-50) mmHg VBG pO2 33 mmHg VBG HCO3 21 mmol/L VBG O2 Saturation < 60.0 % VBG Base Excess -4.4 mEq/L POC Sodium 132 L (135-144) mmol/L Sodium 130 L (136-145) mmol/L POC Potassium 3.2 L (3.3-5.0) mmol/L Potassium 3.3 L (3.5-5.1) mmol/L POC Chloride 96 L (101-112) mmol/L Chloride 96 L (98-107) mmol/L Carbon Dioxide 22 (21-32) mmol/L POC Total CO2 22 L (24-31) mmol/L Anion Gap 12 H (3-11) POC Anion Gap 17.0 (16-25) mmol/L POC BUN 64 H (7-18) mg/dl BUN 64 H (6-23) mg/dl Creatinine 3.01 H (0.6-1.4) mg/dl POC Creatinine 3.5 H (0.6-1.3) mg/dl Est Cr Clr Drug Dosing 18.9 ml/min eGFR 20.03 BUN/Creatinine Ratio 21.3 H (10-20) Glucose 151 H (70-99(Fasting)) mg/dl POC Glucose (other) 154 H (70-99) mg/dl Osmolality 292 (280-300) mOsm/kg Lactate 1.8 (0.4-2.0) mmol/L Calcium 8.8 (8.6-10.3) mg/dl POC Ioniz Calcium Barbara 1.13 (1.12-1.32) mmol/l Magnesium 2.0 (1.7-2.4) mg/dl Total Bilirubin 1.1 H (0.2-1.0) mg/dl Direct Bilirubin 0.4 H (0-0.2) mg/dl AST 35 (13-39) U/L ALT 42 (7-52) U/L Alkaline Phosphatase 77 (34-104) U/L Troponin I High Sens 58.8 H* (0-20) pg/ml Total Protein 6.9 (6.0-8.3) gm/dl Albumin 3.2 L (3.4-5.0) gm/dl Procalcitonin 2.89 H (0-0.5) ng/ml SARS-CoV-2 (PCR) NEGATIVE (Negative) Influenza Type A (PCR) Negative (Neg) Influenza Type B (PCR) Negative (Neg) RSV (RT-PCR) Negative (Neg) Administered Medications Potassium Chloride/Sodium Chloride (Normal Saline W/20 Meq Kcl) 20 meq in 1,000 mls @ 100 mls/hr IV .Q10H ONE Stop: 03/21/25 06:29 Last Admin: 03/20/25 20:34 Dose: 100 mls/hr Documented By: SHARIF Discontinued Medications Dexamethasone (Dexamethasone Sod Inj 4 Mg/Ml Vial) 4 mg IV NOW ONE Stop: 03/20/25 19:31 Last Admin: 03/20/25 20:34 Dose: 4 mg Documented By: SHARIF Acetaminophen (Ofirmev) 1,000 mg in 100 mls @ 400 mls/hr IV NOW STA Stop: 03/20/25 18:01 Last Infusion: 03/20/25 18:32 Dose: Infused Documented By: Admin: 03/20/25 18:01 Dose: 400 mls/hr Documented By: PACO Sodium Chloride (Nss) 1,000 mls @ 999 mls/hr IV .Q1H1M HUMZA Stop: 03/20/25 19:00 Last Infusion: 03/20/25 19:03 Dose: Infused Documented By: Admin: 03/20/25 18:00 Dose: 999 mls/hr Documented By: PACO Piperacillin Sod/Tazobactam Sod (Zosyn) 4.5 gm in 100 mls @ 200 mls/hr IV NOW ONE; Protocol Stop: 03/20/25 19:03 Last Infusion: 03/20/25 19:23 Dose: Infused Documented By: Admin: 03/20/25 18:48 Dose: 200 mls/hr Documented By: PACO Sodium Chloride (Nss) 1,000 mls @ 999 mls/hr IV .Q1H1M ONE Stop: 03/20/25 19:34 Last Infusion: 03/20/25 20:23 Dose: Infused Documented By: Admin: 03/20/25 19:25 Dose: 999 mls/hr Documented By: SHARIF Potassium Chloride (Potassium Chloride Crtab 20 Meq Tabcr) 40 meq PO NOW STA Stop: 03/20/25 19:25 Last Admin: 03/20/25 20:33 Dose: 40 meq Documented By: SHARIF Imaging Data Radiologist's Impression: Chest X-Ray 03/20/25 17:48 Exam: AP Portable Chest Exam reason: Sepsis Comparison: 01/11/2024 Technique: A single AP portable view of the chest was obtained Findings: The lungs are well-expanded. No focal areas of consolidation are identified. There is redemonstration of multiple median sternotomy wires. The cardiac and mediastinal silhouettes are within normal limits. There is no pneumothorax and no acute bony abnormalities are seen. Impression: No acute cardiopulmonary abnormalities Electronically signed by Aidan Peralta 03-20-2025 6:24 PM Abdomen/Pelvis CT 03/20/25 18:15 EXAMINATION: CT of the abdomen and pelvis performed without contrast TECHNIQUE: Helical CT images from the lung bases through the symphysis pubis were obtained without contrast. Coronal and sagittal reformatted images were generated at a workstation for further assessment. Dose reduction techniques were achieved by using automatic exposure control and/or adjustment of mA and/or kV according to patient size and/or use of iterative reconstruction technique. COMPARISON: 11/16/2021 HISTORY: Abdominal pain FINDINGS: Lower chest: No consolidation. No pleural effusion or pneumothorax. Liver: No suspicious liver lesions. Gallbladder: Cholecystectomy Spleen: Normal size. Pancreas: No suspicious pancreatic lesions. The pancreatic duct is not dilated. Adrenal glands: No adrenal nodules. Kidneys: Mild to moderate bilateral hydroureter and hydronephrosis. No ureteral stones. Bladder / Pelvic organs: The bladder appears moderately distended. There is some minimal stone material in the right bladder. There is a small right bladder diverticulum, likely related to chronic outlet obstruction. Bowel: No bowel obstruction. Inflammatory fat stranding and mild wall thickening involving a portion of the sigmoid colon. The appendix is unremarkable. Lymph nodes: No retroperitoneal, mesenteric, or pelvic lymphadenopathy. Peritoneum / Retroperitoneum: No free fluid or air within the abdomen. Vessels: No infrarenal aortic aneurysm. Heavy calcifications. Bones and soft tissues: No suspicious lesion in the bones. IMPRESSION: Acute uncomplicated sigmoid diverticulitis. Mild to moderate bilateral hydroureteronephrosis, possibly related to moderate urinary bladder distention. Electronically signed by Kenneth Tariq 03-20-2025 6:38 PM Discharge Plan Visit Data Chief Complaint: Abdominal Pain Stated Complaint: ABD PAIN ED Provider: Jose Newsome Discharge Problem: Severe sepsis, Sigmoid diverticulitis, Acute kidney injury, Hypoxia Patient Disposition: Home - Self-Care Condition: Fair Forms Stand Alone Forms: My [facility], Important Visit Information Prescriptions Prescriptions: No Action clobetasol 0.05 % cream 1 appln TOP BID PRN (Reason: itchy) docusate sodium [Colace] 100 mg capsule 100 mg PO DAILY PRN (Reason: Constipation) bimatoprost [Lumigan] 0.01 % drops 1 drops OPB QPM nitroglycerin 0.4 mg tablet, sublingual 0.4 mg SL Q5M PRN (Reason: Chest Pain) atorvastatin 40 mg tablet 40 mg PO PM acetaminophen [Tylenol Extra Strength] 500 mg Tablet 1,000 mg PO Q6H PRN (Reason: Pain) metoprolol tartrate 25 mg tablet 25 mg PO QPM cholecalciferol (vitamin D3) [Vitamin D3] 50 mcg (2,000 unit) Capsule 50 mcg PO QAM Lupron Depot (4 month) 30 mg Syringe Kit 30 mg IM UD Qty: 0 Patient Comments: 03/20- pt states he last received his shot in august Rx Instructions: q 4 months betamethasone dipropionate 0.05 % ointment 1 applic TOPICAL DAILY PRN (Reason: Itching) silodosin 8 mg capsule 8 mg PO DAILY amiodarone 200 mg tablet 200 mg PO DAILY Referrals Referrals: Bhaskar Day DO [Primary Care Provider] -
[2025-03-20] MEDS: SODIUM CHLORIDE 0.9% 1,000 ML IV SCH (18:00)
[2025-03-20] MEDS: ACETAMINOPHEN 1,000 MG/100 ML VIAL IV STA (18:01)
--- NOTE | 2025-03-20 18:25 | XRay Report ---
Exam: AP Portable Chest Exam reason: Sepsis Comparison: 01/11/2024 Technique: A single AP portable view of the chest was obtained Findings: The lungs are well-expanded. No focal areas of consolidation are identified. There is redemonstration of multiple median sternotomy wires. The cardiac and mediastinal silhouettes are within normal limits. There is no pneumothorax and no acute bony abnormalities are seen. Impression: No acute cardiopulmonary abnormalities Electronically signed by Aidan Peralta 03-20-2025 6:24 PM
--- NOTE | 2025-03-20 18:39 | CT Scan Report ---
EXAMINATION: CT of the abdomen and pelvis performed without contrast TECHNIQUE: Helical CT images from the lung bases through the symphysis pubis were obtained without contrast. Coronal and sagittal reformatted images were generated at a workstation for further assessment. Dose reduction techniques were achieved by using automatic exposure control and/or adjustment of mA and/or kV according to patient size and/or use of iterative reconstruction technique. COMPARISON: 11/16/2021 HISTORY: Abdominal pain FINDINGS: Lower chest: No consolidation. No pleural effusion or pneumothorax. Liver: No suspicious liver lesions. Gallbladder: Cholecystectomy Spleen: Normal size. Pancreas: No suspicious pancreatic lesions. The pancreatic duct is not dilated. Adrenal glands: No adrenal nodules. Kidneys: Mild to moderate bilateral hydroureter and hydronephrosis. No ureteral stones. Bladder / Pelvic organs: The bladder appears moderately distended. There is some minimal stone material in the right bladder. There is a small right bladder diverticulum, likely related to chronic outlet obstruction. Bowel: No bowel obstruction. Inflammatory fat stranding and mild wall thickening involving a portion of the sigmoid colon. The appendix is unremarkable. Lymph nodes: No retroperitoneal, mesenteric, or pelvic lymphadenopathy. Peritoneum / Retroperitoneum: No free fluid or air within the abdomen. Vessels: No infrarenal aortic aneurysm. Heavy calcifications. Bones and soft tissues: No suspicious lesion in the bones. IMPRESSION: Acute uncomplicated sigmoid diverticulitis. Mild to moderate bilateral hydroureteronephrosis, possibly related to moderate urinary bladder distention. Electronically signed by Kenneth Tariq 03-20-2025 6:38 PM
[2025-03-20 18:43] LABS: Hematocrit (blood only) 31.7 % (42.0-52.0); Hemoglobin 10.4 g/dl (14.0-18.0); Immature Granulocytes # (auto) 0.26 K/uL (0.01-0.20); Immature Granulocytes % (auto) 1.7 %; Mean Corpuscular Hemoglobin 29.2 pg (25.0-34.0); Mean Corpuscular Volume 89.0 fL (80.0-100.0); Platelet Count 203 K/uL (130-400); RDW Standard Deviation 50.6 fL (36.4-46.3); Red Blood Count 3.56 M/uL (4.70-6.10); White Blood Count 15.60 K/ul (4.8-10.8)
[2025-03-20] MEDS: PIPERACILLIN/TAZOBACTAM 4.5 GM/100 ML BAG IV ONE (18:48)
[2025-03-20 19:00] LABS: Alanine Aminotransferase 42.0 U/L (7-52); Albumin Level 3.2 gm/dl (3.4-5.0); Alkaline Phosphatase 77.0 U/L (34-104); Anion Gap 12.0 (3-11); Bilirubin,Total 1.1 mg/dl (0.2-1.0); Blood Urea Nitrogen 64.0 mg/dl (6-23); Calcium 8.8 mg/dl (8.6-10.3); Carbon Dioxide 22.0 mmol/L (21-32); Chloride 96.0 mmol/L (98-107); Creatinine Clr Calc Pharmacy 18.9 ml/min; Glucose 151.0 mg/dl (70-99(Fasting)); Magnesium 2.0 mg/dl (1.7-2.4); Potassium 3.3 mmol/L (3.5-5.1); Sodium 130.0 mmol/L (136-145); Total Protein 6.9 gm/dl (6.0-8.3)
[2025-03-20 19:11] LABS: Influenza A virus by PCR Negative (Neg); Influenza B virus by PCR Negative (Neg); SARS CoV2 RNA(COVID-19) Ceph NEGATIVE (Negative)
[2025-03-20] MEDS: SODIUM CHLORIDE 0.9% 1,000 ML IV ONE (19:25)
[2025-03-20] MEDS ORDERED: dexAMETHasone 4 MG in SYRINGE 0 ML IV ONE (19:28)
--- NOTE | 2025-03-20 19:44 | History & Physical Report ---
Date of Service March 20, 2025 Assessment & Plan (1) Hypotension: Plan: Assessment and plan below following discussion of case with ED provider and reviewing patient history/pertinent normal/abnormal diagnostic test results. Hypotension Multifactorial Severe sepsis (SIRS plus ARF on CKD) secondary to diverticulitis (rule out recurrent UTI given obstructive uropathy/hydronephrosis on imaging, history recurrent UTIs/bladder outlet obstruction/prostate cancer status post radiation on Lupron Rx, rule out C. difficile given recent antibiotic Rx) hypovolemia secondary to illness Possible adrenal insufficiency given recent outpatient oral steroid Rx for ps oriasis flare Troponin elevation secondary to sepsis in the setting of kidney dysfunction, patient without chest pain or SOB Acute on chronic anemia, no obvious bleed CAD status post CABG PAF not on anticoagulation secondary to recurrent GI bleed/history radiation proctitis, patient currently NSR mild hyperlipidemia, on statin Rx hx urolithiasis DM2 diet-controlled, well-controlled as of recent hemoglobin A1c of 07 June 2024 history of PMR currently not on maintenance medications Hypokalemia secondary to diarrhea past tobacco abuse Admit to PCU CS, Zosyn Clear liquid diet for now, outpatient GI follow-up eval for diverticulitis Monitor creatinine response to IVF Stool C. difficile, Flagyl 1 dose for presumptive C. difficile given sepsis criteria Monitor creatinine response to IVF, appropriate to hold BP meds for now Chowdary catheter insertion, Urology consult for obstructive uropathy resulting in bilateral hydronephrosis Decadron 1 dose now for possible adrenal insufficiency Replace potassium DVT prophylaxis. SCDs Re: History recurrent LGIB Full code Patient daughter requesting updates providers. Ms. Rosa Askew, contact #[phone]. Total critical care time was 45 minutes. Text document was generated using [employer] voice recognition software. It may contain grammatical or spelling errors. Kindly contact undersigned for clarification of any documentation item in question. History of Present Illness Chief Complaint: Left-sided abdominal pain Primary Care Provider: Bhaskar Day DO History obtained from patient, family, and records. Medical history significant for CAD status post CABG, PAF not on anticoagulation secondary to recurrent GI bleed, mild , hypertension, hyperlipidemia, urolithiasis, prostate cancer status post radiation on Lupron, history radiation proctitis, recurrent UTIs, bladder outlet obstruction/urethral stricture as per records, diverticulosis, colonic angiectasia status post APC, CRI (baseline creatinine 1.6), chronic anemia (baseline hemoglobin of 11-12), DM2 diet- controlled, history of PMR, psoriasis, past tobacco abuse. Last confinement October 2021 for severe sepsis secondary to anaplasmosis. Patient seen at [facility] ER 2 weeks ago for dysuria symptoms. Symptoms improved after outpatient cefdinir course. Urine CS eventually turned out negative At about the same time, patient experienced psoriasis flare unresponsive to topical steroid Rx. Lesions improved after oral steroid course prescribed by urgent care last week. 3 days ago, patient started not feeling well, achy left-sided lower abdominal pain with poor appetite. Some nausea symptoms associated with fever chills. Watery stools 1 episode. Patient denies chest pain, SOB, cough symptoms. SBP 90s upon arrival at the ER. IV Zosyn administered at the ER. 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 Allergies Allergy/AdvReac Type Severity Reaction Status Date / Time sulfamethoxazole AdvReac Intermediate Hypotension Unverified 03/20/25 20:13 [From Bactrim] trimethoprim [From Bactrim] AdvReac Intermediate Hypotension Unverified 03/20/25 20:13 meperidine AdvReac Mild PASS OUT Verified 01/11/24 08:44 Home Medications Medication Instructions Recorded Confirmed Type bimatoprost 0.01 % eye drops 1 drops OPB QPM 07/08/18 03/20/25 History (Lumigan) nitroglycerin 0.4 mg sublingual 0.4 mg sublingual Q5M PRN Chest 07/08/18 03/20/25 History tablet Pain clobetasol 0.05 % topical cream 1 appln topical BID PRN itchy 04/19/19 03/20/25 History docusate sodium 100 mg capsule 100 mg PO DAILY PRN Constipation 04/25/19 03/20/25 History (Colace) acetaminophen 500 mg tablet 1,000 mg PO Q6H PRN Pain 06/16/21 03/20/25 History (Tylenol Extra Strength) atorvastatin 40 mg tablet 40 mg PO PM 06/16/21 03/20/25 History metoprolol tartrate 25 mg tablet 25 mg PO QPM 06/16/21 03/20/25 History cholecalciferol (vitamin D3) 50 50 mcg PO QAM 01/11/22 03/20/25 History mcg (2,000 unit) capsule (Vitamin D3) leuprolide (4 month) 30 mg (4 30 mg IM UD ##0 01/11/22 03/20/25 History month) intramuscular syringe kit (Lupron Depot) betamethasone dipropionate 0.05 % 1 applic topical DAILY PRN Itching 01/11/24 03/20/25 History topical ointment silodosin 8 mg capsule 8 mg PO DAILY 01/11/24 03/20/25 History amiodarone 200 mg tablet 200 mg PO DAILY 03/06/25 03/20/25 History Past Med/Surg History Problem List (Updated 03/21/25 @ 00:45 by Paolo Valentine PA-C) Obstructive uropathy Hypotension Hypoxia (Acute) Acute kidney injury (Acute) Sigmoid diverticulitis (Acute) Severe sepsis (Acute) Encounter for pre-operative examination Positive Anaplasma serology Medical History DDD (degenerative disc disease) CKD (chronic kidney disease), stage III GERD (gastroesophageal reflux disease) Prostate cancer metastatic to bone Dx 2019 - current lupron therapy, hx of radiation Glaucoma HTN (hypertension) HLD (hyperlipidemia) Atrial fibrillation Dx 2021 in setting of anaplasmosis, sepsis @ [facility]. Follows with Dr. Arcos. Radiation proctitis CAD (coronary artery disease) s/p CABG x3 (2013) Prostate CA Glaucoma B/L Eyes Ischemic heart disease Polymyalgia rheumatica Surgical History History of sigmoidoscopy History of colonoscopy History of cardiac catheterization 2013 [facility] -- CABG History of ERCP Hx laparoscopic cholecystectomy Laparoscopic Cholecystectomy (11/22/21): Grade 1 view, MAC#3, ETT 7.5 at [facility]. Per anesthesia post-op progress note, "The patient is now awake and comfortable. He is in sinus rhythm and his vital signs are all stable. In the OR the patient had been noted to go into afib with RVR (of which he has a history). His HR went to the 140s. His procedure had initially been under MAC but then a decision was made to do an ERCP so the patient was intubated. It was during this procedure that the PATTERN MECHANIC called me into the room for the rapid heart rate. The patient was treated with esmolol. He was slow to wake up but eventually following commands and extubated in the OR. Once he came to recovery, his vital signs stabilized." History of kidney surgery 1994 - Ureteral Stone Surgery Status post repair of hydrocele Drainage as a youth History of prostate biopsy History of coronary artery bypass graft x 3 2013 Family History Mother , Passed age 87 of CVA Breast cancer, Onset Age: 50 Father , Passed age 64 of Lung Disease No problems noted. Brother No problems noted. Sister , Passed age 58 of breast cancer/head and neck cancer No problems noted. Sister No problems noted. Sister No problems noted. Daughter No problems noted. Other No family history of adverse response to anesthesia Social History Smoking Status: Never smoker Tobacco Type: Cigarettes Second Hand Exposure: Yes (hx); Do You Dip or Chew Tobacco: No; Hx Alcohol Use: No Hx Substance Use: No Preferred Language: Croatian Communication Ability: Effective Visual Impairment: No Limitations Hearing Ability: Normal Charge Histotechnologist Required: No Beliefs That Will Affect Care: None marital status: Current Living Situation: Spouse Current Living Situation Comment: with current occupational status: retired current occupation: Retired [employer] Other Information That Helps Us Care for You: No Feels Safe at Home: Yes Safety Concerns: Feels Safe At This Time caffeine: Yes (2 cups of coffee/day ) during the past year weight has: remained stable Assistive Devices: Cane Review of Systems Review of Systems: As per HPI, all other systems reviewed and negative Physical Exam Physical Exam: GENERAL: Comfortable, pleasant, no respiratory distress SKIN: Pallor, warm HEENT: Pale palpebral conjunctivae, no ptosis, dry buccal mucosa NECK : Supple, no tenderness CHEST : Decreased breath sounds, no tenderness HEART : RRR, systolic murmur ABDOMEN: Some distention, left-sided abdominal tenderness EXTREMITIES : No LE swelling/tenderness, palpable pulses, no other conspicuous deformities noted NEUROLOGIC : Coherent, no facial asymmetry, no other gross focality Results & Data Results & Data Vital Signs (Past 12 Hours) Vital Signs Temp Pulse Pulse Resp BP BP Pulse Ox 03/20/25 18:51 37.2 C 92 H 20 95/56 L 96 03/20/25 18:34 122 H 25 H 95 03/20/25 18:33 131 H 22 98/62 L 95 03/20/25 18:18 87 L 03/20/25 18:07 105 H 03/20/25 17:39 37.9 C H 104 H 20 95/63 L 92 O2 Del Method O2 Flow Rate 03/20/25 18:51 Nasal Cannula 3 03/20/25 18:34 Nasal Cannula 3 03/20/25 18:33 Nasal Cannula 3 03/20/25 18:18 Room Air 03/20/25 18:07 03/20/25 17:39 Room Air Laboratory Results Laboratory Results WBC 15.60 K/ul (4.8-10.8) H 03/20/25 18:00 RBC 3.56 M/uL (4.70-6.10) L 03/20/25 18:00 Hgb 10.4 g/dl (14.0-18.0) L 03/20/25 18:00 POC Hgb 10.5 g/dl (14.0-18.0) L 03/20/25 18:08 Hct 31.7 % (42.0-52.0) L 03/20/25 18:00 POC Hct 31 % (42-52) L 03/20/25 18:08 MCV 89.0 fL (80.0-100.0) 03/20/25 18:00 MCH 29.2 pg (25.0-34.0) 03/20/25 18:00 MCHC 32.8 g/dL (32.0-36.0) 03/20/25 18:00 RDW Std Deviation 50.6 fL (36.4-46.3) H 03/20/25 18:00 RDW Coeff of Miquel 15.5 % (11.5-14.5) H 03/20/25 18:00 Plt Count 203 K/uL (130-400) 03/20/25 18:00 MPV 11.7 fL (9.4-12.4) 03/20/25 18:00 Immature Gran % (Auto) 1.7 % 03/20/25 18:00 Neut % (Auto) 83.1 % 03/20/25 18:00 Lymph % (Auto) 8.3 % 03/20/25 18:00 [place] % (Auto) 6.0 % 03/20/25 18:00 Eos % (Auto) 0.7 % 03/20/25 18:00 Baso % (Auto) 0.2 % 03/20/25 18:00 Neut # (Auto) 12.97 K/uL (1.40-6.50) H 03/20/25 18:00 Lymph # (Auto) 1.29 K/uL (1.20-3.40) 03/20/25 18:00 [place] # (Auto) 0.94 K/uL (0.11-0.59) H 03/20/25 18:00 Eos # (Auto) 0.11 K/uL (0.00-0.50) 03/20/25 18:00 Baso # (Auto) 0.03 K/uL (0.00-0.20) 03/20/25 18:00 Immature Gran # (Auto) 0.26 K/uL (0.01-0.20) H 03/20/25 18:00 POC Sodium 132 mmol/L (135-144) L 03/20/25 18:08 Sodium 130 mmol/L (136-145) L 03/20/25 18:00 POC Potassium 3.2 mmol/L (3.3-5.0) L 03/20/25 18:08 Potassium 3.3 mmol/L (3.5-5.1) L 03/20/25 18:00 POC Chloride 96 mmol/L (101-112) L 03/20/25 18:08 Chloride 96 mmol/L (98-107) L 03/20/25 18:00 Carbon Dioxide 22 mmol/L (21-32) 03/20/25 18:00 POC Total CO2 22 mmol/L (24-31) L 03/20/25 18:08 Anion Gap 12 (3-11) H 03/20/25 18:00 POC Anion Gap 17.0 mmol/L (16-25) 03/20/25 18:08 POC BUN 64 mg/dl (7-18) H 03/20/25 18:08 BUN 64 mg/dl (6-23) H 03/20/25 18:00 Creatinine 3.01 mg/dl (0.6-1.4) H 03/20/25 18:00 POC Creatinine 3.5 mg/dl (0.6-1.3) H 03/20/25 18:08 Est Cr Clr Drug Dosing 18.9 ml/min 03/20/25 18:00 eGFR 20.03 03/20/25 18:00 BUN/Creatinine Ratio 21.3 (10-20) H 03/20/25 18:00 Glucose 151 mg/dl (70-99(Fasting)) H 03/20/25 18:00 POC Glucose (other) 154 mg/dl (70-99) H 03/20/25 18:08 Lactate 1.8 mmol/L (0.4-2.0) 03/20/25 18:00 Calcium 8.8 mg/dl (8.6-10.3) 03/20/25 18:00 POC Ioniz Calcium Barbara 1.13 mmol/l (1.12-1.32) 03/20/25 18:08 Magnesium 2.0 mg/dl (1.7-2.4) 03/20/25 18:00 Total Bilirubin 1.1 mg/dl (0.2-1.0) H 03/20/25 18:00 Direct Bilirubin 0.4 mg/dl (0-0.2) H 03/20/25 18:00 AST 35 U/L (13-39) 03/20/25 18:00 ALT 42 U/L (7-52) 03/20/25 18:00 Alkaline Phosphatase 77 U/L (34-104) 03/20/25 18:00 Troponin I High Sens 58.8 pg/ml (0-20) H* 03/20/25 18:00 Total Protein 6.9 gm/dl (6.0-8.3) 03/20/25 18:00 Albumin 3.2 gm/dl (3.4-5.0) L 03/20/25 18:00 Procalcitonin 2.89 ng/ml (0-0.5) H 03/20/25 18:00 SARS-CoV-2 (PCR) NEGATIVE (Negative) 03/20/25 18:00 Influenza Type A (PCR) Negative (Neg) 03/20/25 18:00 Influenza Type B (PCR) Negative (Neg) 03/20/25 18:00 RSV (RT-PCR) Negative (Neg) 03/20/25 18:00 Impressions Chest X-Ray 03/20/25 17:48 Exam: AP Portable Chest Exam reason: Sepsis Comparison: 01/11/2024 Technique: A single AP portable view of the chest was obtained Findings: The lungs are well-expanded. No focal areas of consolidation are identified. There is redemonstration of multiple median sternotomy wires. The cardiac and mediastinal silhouettes are within normal limits. There is no pneumothorax and no acute bony abnormalities are seen. Impression: No acute cardiopulmonary abnormalities Electronically signed by Aidan Peralta 03-20-2025 6:24 PM Abdomen/Pelvis CT 03/20/25 18:15 EXAMINATION: CT of the abdomen and pelvis performed without contrast TECHNIQUE: Helical CT images from the lung bases through the symphysis pubis were obtained without contrast. Coronal and sagittal reformatted images were generated at a workstation for further assessment. Dose reduction techniques were achieved by using automatic exposure control and/or adjustment of mA and/or kV according to patient size and/or use of iterative reconstruction technique. COMPARISON: 11/16/2021 HISTORY: Abdominal pain FINDINGS: Lower chest: No consolidation. No pleural effusion or pneumothorax. Liver: No suspicious liver lesions. Gallbladder: Cholecystectomy Spleen: Normal size. Pancreas: No suspicious pancreatic lesions. The pancreatic duct is not dilated. Adrenal glands: No adrenal nodules. Kidneys: Mild to moderate bilateral hydroureter and hydronephrosis. No ureteral stones. Bladder / Pelvic organs: The bladder appears moderately distended. There is some minimal stone material in the right bladder. There is a small right bladder diverticulum, likely related to chronic outlet obstruction. Bowel: No bowel obstruction. Inflammatory fat stranding and mild wall thickening involving a portion of the sigmoid colon. The appendix is unremarkable. Lymph nodes: No retroperitoneal, mesenteric, or pelvic lymphadenopathy. Peritoneum / Retroperitoneum: No free fluid or air within the abdomen. Vessels: No infrarenal aortic aneurysm. Heavy calcifications. Bones and soft tissues: No suspicious lesion in the bones. IMPRESSION: Acute uncomplicated sigmoid diverticulitis. Mild to moderate bilateral hydroureteronephrosis, possibly related to moderate urinary bladder distention. Electronically signed by Kenneth Tariq 03-20-2025 6:38 PM Diagnostic Findings EKG as per my interpretation :Rate 105, sinus tachycardia, LAD, LAFB, RBBB, no ischemia
[2025-03-20 20:18] LABS: Base Excess VBG -4.4 mEq/L; HCO3 VBG 21 mmol/L; Oxygen Saturation VBG < 60.0 %; PCO2 VBG 39 mmHg (38-50); PO2 VBG 33 mmHg; pH VBG 7.34 (7.36-7.41)
[2025-03-20 20:23] LABS: Hematocrit (blood only) 29.9 % (42.0-52.0); Hemoglobin 9.7 g/dl (14.0-18.0)
[2025-03-20] MEDS: POTASSIUM CHLORIDE CRTAB 20 MEQ TABCR PO STA (20:33)
[2025-03-20] MEDS: DEXAMETHASONE SOD INJ 4 MG/ML VIAL IV ONE (20:34)
[2025-03-20] MEDS: NSS + 20MEQ KCL 20 MEQ/1,000 ML BAG IV ONE (20:34)
[2025-03-20] MEDS ORDERED: NITROGLYCERIN SL 0.4 MG/TAB TAB SL PRN (20:46)
[2025-03-20] MEDS ORDERED: PROMETHAZINE 6.25 MG/50.25 ML BAG IV PRN (20:47)
[2025-03-20] MEDS ORDERED: FLUOCINONIDE 0.05% OINT 15 GM TUBE EXT PRN (20:53)
[2025-03-20 20:58] LABS: Thyroid Stimulating Hormone 1.457 uIu/ml (0.300-4.500)
[2025-03-20 21:07] LABS: Appearance Urine Cloudy (Clear); Bacteria Urine Automated None Seen (None Seen); Epithelial Cell Urine Auto 0-2 /hpf (0-2); Glucose Urine UA Negative (Negative); RBC Urine Automated 0-2 /hpf (0-2); WBC Urine Automated 0-5 /hpf (0-5)
[2025-03-20] MEDS: CEFEPIME 1000MG 1,000 MG/10 ML SYR IV ONE (22:00)
[2025-03-20] MEDS ORDERED: DEXTROSE 50% 50 ML SYRINGE IV PRN (22:17)
[2025-03-20] MEDS ORDERED: CARBOHYDRATES FOR HYPOGLYCEMIA PO PRN (22:17)
[2025-03-20] MEDS ORDERED: GLUCAGON FOR INJ 1 MG VIAL SQ PRN (22:17)
[2025-03-20] MEDS ORDERED: GLUCOSE 10 TAB/TUBE PO PRN (22:17)
[2025-03-20] MEDS ORDERED: GLUCOSE 40% GEL 15 GM TUBE PO PRN (22:17)
[2025-03-20] MEDS: BIMATOPROST 0.01% OP SOLN 2.5 ML BTL OPB SCH (22:22)
[2025-03-20] MEDS: metroNIDAZOLE 500 MG/100 ML BAG IV ONE (22:40)
[2025-03-20] MEDS: INSULIN ASPART PER UNIT CHARGE SC SCH (22:43)
[2025-03-20] MEDS: ATORVASTATIN 40 MG TAB PO SCH (22:43)
[2025-03-20] MEDS: METOPROLOL TARTRATE 25 MG TAB PO STA (23:49)
--- NOTE | 2025-03-21 00:46 | Urology Consultation ---
Date of Consultation March 21, 2025 Assessment & Plan (1) Obstructive uropathy: Patient has been admitted on the hospitalist service and from a urologic perspective we recommend the following: Patient is noted to have acute kidney injurythis may be due to incomplete bladder emptying resulting in obstructive uropathy A Chowdary catheter has been placed and should be maintained for bladder rest. A voiding trial can be performed in the future, and this may be performed either as an inpatient or outpatient Serial labs to be followed Nephrotoxins should be avoided Flomax has been initiated should continue Additional recommendations were made based on how he is kidney function numbers trend as well as his clinical course as unfolds Supervising Physician Co-Signing Physician Notes Patient seen and examined independently Initial consult performed by William Alston overnight Patient is tolerating the catheter well Good clear urine production Creatinine already improving and good urine output He has a history of prostate cancer status post radiation and has had progressive voiding difficulties over the past several weeks His creatinine over the past several years has fluctuated up and down He has an established relationship with Dr. Fabricio Wilson at [facility] urologist in [place] He will need to keep his Chowdary catheter in place for the time being a follow-up with Dr. Wilson to discuss long-term management options No further role for us during this hospitalization, discharge as soon as medically stable History of Present Illness Reason for Consultation: Obstructive uropathy Attending Physician: Franco Hobson DO History of Present Illness This is an 84-year-old male who presented to the hospital to the left lower abdominal tenderness. He does he has been having this tenderness for several days. He had a CT scan abdomen pelvis that showed diverticulitis for which he was admitted for. In addition he was noted to have acute kidney injury and a distended bladder for which urology was consulted. I did question the patient on urologic symptoms and he denies any back or flank pain. He he notes he has been having fevers but denies any shakes or chills. He says he does have a history of prostate cancer for which he underwent prostate radiation. He notes that since that time he has had intermittent hematuria. He does also note that his urine stream is not quite as strong as what it once was and he feels as though at certain times he cannot empty his bladder completely. He also notes some intermittent urinary frequency. Since arrival to hospitals patient has had labs and imaging which I independent reviewed. Chest x-ray showed no evidence of pneumonia. A CT scan of the abdomen pelvis showed the patient had some evidence of uncomplicated sigmoid diverticulitis. The patient was noted to have bilateral hydronephrosisthe bladder was noted to be moderately distended with some noted stone material in the bladder. Labs including CBC were white blood cell count was elevated 15.6. Hemoglobin and hematocrit were 9.7 and 29.9. Platelet count was normal. Chemistry profile showed sodium is 130 with a potassium of 3.2. BUN and creatinine were 64 and 3.0. (Review records show the patient's baseline creatinine runs typically from 1.6-1.9). Urinalysis did not appear to be indicative of infection. Since arrival to emergency department the patient has had a Chowdary catheter based and he has noted some symptomatic improvement At the time my exam he was resting comfortably in bed he was in no distress. Allergies Allergy/AdvReac Type Severity Reaction Status Date / Time sulfamethoxazole AdvReac Intermediate Hypotension Unverified 03/20/25 20:13 [From Bactrim] trimethoprim [From Bactrim] AdvReac Intermediate Hypotension Unverified 03/20/25 20:13 meperidine AdvReac Mild PASS OUT Verified 01/11/24 08:44 Home Medications Medication Instructions Recorded Confirmed Type bimatoprost 0.01 % eye drops 1 drops OPB QPM 07/08/18 03/20/25 History (Lumigan) nitroglycerin 0.4 mg sublingual 0.4 mg sublingual Q5M PRN Chest 07/08/18 03/20/25 History tablet Pain clobetasol 0.05 % topical cream 1 appln topical BID PRN itchy 04/19/19 03/20/25 History docusate sodium 100 mg capsule 100 mg PO DAILY PRN Constipation 04/25/19 03/20/25 History (Colace) acetaminophen 500 mg tablet 1,000 mg PO Q6H PRN Pain 06/16/21 03/20/25 History (Tylenol Extra Strength) atorvastatin 40 mg tablet 40 mg PO PM 06/16/21 03/20/25 History metoprolol tartrate 25 mg tablet 25 mg PO QPM 06/16/21 03/20/25 History cholecalciferol (vitamin D3) 50 50 mcg PO QAM 01/11/22 03/20/25 History mcg (2,000 unit) capsule (Vitamin D3) leuprolide (4 month) 30 mg (4 30 mg IM UD ##0 01/11/22 03/20/25 History month) intramuscular syringe kit (Lupron Depot) betamethasone dipropionate 0.05 % 1 applic topical DAILY PRN Itching 01/11/24 03/20/25 History topical ointment silodosin 8 mg capsule 8 mg PO DAILY 01/11/24 03/20/25 History amiodarone 200 mg tablet 200 mg PO DAILY 03/06/25 03/20/25 History Patient History Medical History DDD (degenerative disc disease) CKD (chronic kidney disease), stage III GERD (gastroesophageal reflux disease) Prostate cancer metastatic to bone Dx 2018 - current lupron therapy, hx of radiation Glaucoma HTN (hypertension) HLD (hyperlipidemia) Atrial fibrillation Dx 2021 in setting of anaplasmosis, sepsis @ [facility]. Follows with Dr. Arcos. Radiation proctitis CAD (coronary artery disease) s/p CABG x3 (2013) Prostate CA Glaucoma B/L Eyes Ischemic heart disease Polymyalgia rheumatica Surgical History History of sigmoidoscopy History of colonoscopy History of cardiac catheterization 2013 [facility] -- CABG History of ERCP Hx laparoscopic cholecystectomy Laparoscopic Cholecystectomy (11/22/21): Grade 1 view, MAC#3, ETT 7.5 at [facility]. Per anesthesia post-op progress note, "The patient is now awake and comfortable. He is in sinus rhythm and his vital signs are all stable. In the OR the patient had been noted to go into afib with RVR (of which he has a history). His HR went to the 140s. His procedure had initially been under MAC but then a decision was made to do an ERCP so the patient was intubated. It was during this procedure that the SENIOR IT ARCHITECT called me into the room for the rapid heart rate. The patient was treated with esmolol. He was slow to wake up but eventually following commands and extubated in the OR. Once he came to recovery, his vital signs stabilized." History of kidney surgery 1994 - Ureteral Stone Surgery Status post repair of hydrocele Drainage as a youth History of prostate biopsy History of coronary artery bypass graft x 3 2013 Family History Mother , Passed age 87 of CVA Breast cancer, Onset Age: 50 Father , Passed age 64 of Lung Disease No problems noted. Brother No problems noted. Sister , Passed age 58 of breast cancer/head and neck cancer No problems noted. Sister No problems noted. Sister No problems noted. Daughter No problems noted. 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 Feeder Required: No Beliefs That Will Affect Care: None marital status: Current Living Situation: Spouse Current Living Situation Comment: with current occupational status: retired current occupation: Retired [employer] Other Information That Helps Us Care for You: No Feels Safe at Home: Yes Safety Concerns: Feels Safe At This Time caffeine: Yes (2 cups of coffee/day ) during the past year weight has: remained stable Assistive Devices: Glasses Review of Systems Review of Systems: All systems reviewed & are unremarkable except as noted in HPI & below Physical Exam Constitutional: WD/WN, vitals as above Eyes: no conjunctival abnormality ENMT: Ears: no hearing impairment and no external ear abnormality Mouth: no oropharynx abnormality Neck: trachea midline Respiratory: normal respiratory effort; no respiratory distress and no labored breathing Cardiovascular: Rate/Rhythm: regular rate and regular rhythm Gastrointestinal (Abdomen): Soft and nontender to palpation Musculoskeletal: No calf tenderness Skin: no rashes Neurologic: moves all extremities Psychiatric: A+Ox3, euthymic affect Genitourinary: No CVA tenderness with percussion bilaterally. The patient has a Chowdary catheter in place which appears to be patent draining clear yellow urine Results & Data Vital Signs (Past 12 Hours) Vital Signs Temp Pulse Pulse Resp BP BP Pulse Ox 03/20/25 22:17 03/20/25 22:17 97 H 03/20/25 22:17 36.7 C 108 H 18 130/57 L 97 03/20/25 22:00 125 H 03/20/25 21:58 03/20/25 21:30 91 H 19 107/61 98 03/20/25 21:01 93 H 20 120/64 100 03/20/25 20:30 90 24 135/76 98 03/20/25 19:30 88 20 95/58 L 96 03/20/25 19:00 105 H 15 90/51 L 97 03/20/25 18:51 37.2 C 92 H 20 95/56 L 96 03/20/25 18:34 122 H 25 H 95 03/20/25 18:33 131 H 22 98/62 L 95 03/20/25 18:18 87 L 03/20/25 18:07 105 H 03/20/25 17:39 37.9 C H 104 H 20 95/63 L 92 O2 Del Method O2 Flow Rate 03/20/25 22:17 Room Air 03/20/25 22:17 03/20/25 22:17 Room Air 03/20/25 22:00 03/20/25 21:58 Room Air 03/20/25 21:30 Room Air 03/20/25 21:01 Room Air 03/20/25 20:30 Room Air 03/20/25 19:30 Nasal Cannula 2 03/20/25 19:00 Nasal Cannula 2 03/20/25 18:51 Nasal Cannula 3 03/20/25 18:34 Nasal Cannula 3 03/20/25 18:33 Nasal Cannula 3 03/20/25 18:18 Room Air 03/20/25 18:07 03/20/25 17:39 Room Air PG Care Time/CCT Total # of Minutes Spent Total Time Spent with Patient: Total time spent is greater than 50% in coordination of care (as documented) at patient's floor/unit and/or counseling patient: Coding Level of Care Code 66418 INT INP/OBS CARE 375MIN Diagnoses Obstructive uropathy N13.9
[2025-03-21] MEDS: PIPERACILLIN/TAZOBACTAM 4.5 GM/100 ML BAG IV SCH (02:12)
[2025-03-21] MEDS ORDERED: metroNIDAZOLE 500 MG/100 ML BAG IV SCH (05:00)
[2025-03-21 07:39] LABS: Hematocrit (blood only) 29.2 % (42.0-52.0); Hemoglobin 10.0 g/dl (14.0-18.0); Mean Corpuscular Hemoglobin 30.7 pg (25.0-34.0); Mean Corpuscular Volume 89.6 fL (80.0-100.0); Platelet Count 173 K/uL (130-400); RDW Standard Deviation 49.3 fL (36.4-46.3); Red Blood Count 3.26 M/uL (4.70-6.10); White Blood Count 10.62 K/ul (4.8-10.8)
[2025-03-21 07:57] LABS: Anion Gap 6.0 (3-11); Blood Urea Nitrogen 48.0 mg/dl (6-23); Calcium 8.1 mg/dl (8.6-10.3); Carbon Dioxide 21.0 mmol/L (21-32); Chloride 107.0 mmol/L (98-107); Creatinine Clr Calc Pharmacy 26.0 ml/min; Glucose 182.0 mg/dl (70-99(Fasting)); Potassium 4.5 mmol/L (3.5-5.1); Sodium 134.0 mmol/L (136-145)
[2025-03-21 07:58] LABS: Immature Granulocytes # (auto) 0.12 K/uL (0.01-0.20); Immature Granulocytes % (auto) 1.1 %
[2025-03-21] MEDS: NSS + 20MEQ KCL 20 MEQ/1,000 ML BAG IV ONE (08:38)
[2025-03-21] MEDS: LANTUS PER UNIT CHARGE SQ SCH (08:39)
[2025-03-21] MEDS: ACETAMINOPHEN 325 MG TAB PO PRN (08:39)
[2025-03-21] MEDS: TAMSULOSIN HCL 0.4 MG CAP PO SCH (08:39)
[2025-03-21] MEDS: AMIODARONE 200 MG TAB PO SCH (08:39)
[2025-03-21] MEDS ORDERED: CEFEPIME 1000MG 1,000 MG/10 ML SYR IV SCH (09:00)
--- NOTE | 2025-03-21 09:43 | Hospitalist Progress Note ---
Date of Service March 21, 2025 Assessment & Plan (1) Hypotension: Plan: 84M with PMH AD status post CABG, PAF not on anticoagulation secondary to recurrent GI bleed, mild , hypertension, hyperlipidemia, urolithiasis, prostate cancer status post radiation on Lupron, history radiation proctitis, recurrent UTIs, bladder outlet obstruction/urethral stricture as per records, diverticulosis, colonic angiectasia status post APC, CKD3 , chronic anemia (baseline hemoglobin of 11-12), DM2 diet-controlled, history of PMR, psoriasis, past tobacco abuse presents with fever, hypotension, LLQ pain #Acute Diverticulitis -Also with early sepsis on admission-now resolved -Sepsis due to fever, leukocytosis, hypotension, tachycardia -Lactate WNL -CT AP showing uncomplicated diverticulitis and B/l hydronephrosis -No history of PSA Plan -Deescalate to CTX and flagyl. DC Zosyn -Follow blood cultures -Follow temp, BP, WBC -OP colonoscopy in 4-6 weeks #B/l Hydronephrosis -Secondary to bladder obstruction due to prostate CA and urethral stricture -Urology consulted -No crandall at home Plan -Continue Crandall -OP Voiding trial -Monitor urine output, renal function #Diarrhea -Multiple loose bowel movements before admission -Non bloody -None since he was admitted -He is high risk for C. diff as he was just on abx for a UTI -However, given his lack of bowel movements this admission, low suspicion for C. diff Plan -Should he have a loose foul smelling BM today, check C. diff -If no BM today, DC C. diff testing #MERNA on CKD3 -Secondary to obstruction -Cr improving with crandall placement Plan -Continue with crandall -Daily BMP -Avoid nephrotoxic agents if possible #pAF -Not on AC due to history of bleeding -Currently in NSR -Home Toprol on hold due to sepsis, resume EMILIANO #Anemia -Chronic at baseline -No s/s acute blood loss -F/u PCP as OP #Acute hyponatremia -Low suspicion for adrenal insufficiency -Mild asymptomatic improving #History of CAD -S/p CABG -No chest pain #Non specific trop elevation -In setting of MERNA/CKD -Low suspicion for NSTEMI or ACS #Prostate CA -OP f/u urology I spent a total of 65 minutes coordinating, documenting, and providing care for this patient excluding time spent in the performance of separately billed se rvices. This included personally reviewing all current laboratories and imaging studies, medical reconciliation, outpatient chart review and discussion with specialists Admission and Anticipated Discharge Date Admission Date: March 20, 2025 Subjective Feeling very well this AM. still with some LLQ pain, mild. no other complaints. d/w daughter on patient's phone Physical Exam Physical Exam: Vitals and labs reviewed General: Well appearing, NAD HEENT: EOMI, PERRLA Neck: Supple Cardiac: RRR systolic murmur Lungs: CTA no rhonchi wheezing or rales Abd: S NT ND BS positive : Crandall MSK: Full ROM. No obvious deformities Ext: No Edema cyanosis Skin: Warm, Dry Neuro: AOx3 No focal deficits. Psych: Normal Mood Results & Data Results & Data Vital Signs (Past 12 Hours) Vital Signs Temp Pulse Pulse Resp BP Pulse Ox O2 Del Method 03/21/25 07:11 36.3 C L 85 17 106/71 97 Room Air 03/21/25 03:41 36.4 C L 84 18 102/65 95 Room Air 03/20/25 22:17 Room Air 03/20/25 22:17 97 H 03/20/25 22:17 36.7 C 108 H 18 130/57 L 97 Room Air 03/20/25 22:00 125 H 03/20/25 21:58 Room Air Laboratory Results Abnormal lab results 03/20/25 03/20/25 03/20/25 Range/Units 18:00 18:08 19:57 WBC 15.60 H (4.8-10.8) K/ul RBC 3.56 L (4.70-6.10) M/uL Hgb 10.4 L 9.7 L (14.0-18.0) g/dl POC Hgb 10.5 L (14.0-18.0) g/dl Hct 31.7 L 29.9 L (42.0-52.0) % POC Hct 31 L (42-52) % RDW Std Deviation 50.6 H (36.4-46.3) fL RDW Coeff of Miquel 15.5 H (11.5-14.5) % Neut # (Auto) 12.97 H (1.40-6.50) K/uL Lymph # (Auto) (1.20-3.40) K/uL [place] # (Auto) 0.94 H (0.11-0.59) K/uL Immature Gran # (Auto) 0.26 H (0.01-0.20) K/uL VBG pH 7.34 L (7.36-7.41) POC Sodium 132 L (135-144) mmol/L Sodium 130 L (136-145) mmol/L POC Potassium 3.2 L (3.3-5.0) mmol/L Potassium 3.3 L (3.5-5.1) mmol/L POC Chloride 96 L (101-112) mmol/L Chloride 96 L (98-107) mmol/L POC Total CO2 22 L (24-31) mmol/L Anion Gap 12 H (3-11) POC BUN 64 H (7-18) mg/dl BUN 64 H (6-23) mg/dl Creatinine 3.01 H (0.6-1.4) mg/dl POC Creatinine 3.5 H (0.6-1.3) mg/dl BUN/Creatinine Ratio 21.3 H (10-20) Glucose 151 H (70-99(Fasting)) mg/dl POC Glucose (70-99) mg/dl POC Glucose (other) 154 H (70-99) mg/dl Calcium (8.6-10.3) mg/dl Total Bilirubin 1.1 H (0.2-1.0) mg/dl Direct Bilirubin 0.4 H (0-0.2) mg/dl Troponin I High Sens 58.8 H* (0-20) pg/ml Albumin 3.2 L (3.4-5.0) gm/dl Procalcitonin 2.89 H (0-0.5) ng/ml Urine Appearance (Clear) Urine Protein (Negative) U Hyaline Cast (Auto) (0-2) /lpf Hyaline Casts (None Presnt) /lpf Urine Osmolality (500-800) mOsm/kg 03/20/25 03/20/25 03/21/25 Range/Units 20:40 22:17 07:14 WBC (4.8-10.8) K/ul RBC 3.26 L (4.70-6.10) M/uL Hgb 10.0 L (14.0-18.0) g/dl POC Hgb (14.0-18.0) g/dl Hct 29.2 L (42.0-52.0) % POC Hct (42-52) % RDW Std Deviation 49.3 H (36.4-46.3) fL RDW Coeff of Miquel 14.9 H (11.5-14.5) % Neut # (Auto) 9.96 H (1.40-6.50) K/uL Lymph # (Auto) 0.35 L (1.20-3.40) K/uL [place] # (Auto) (0.11-0.59) K/uL Immature Gran # (Auto) (0.01-0.20) K/uL VBG pH (7.36-7.41) POC Sodium (135-144) mmol/L Sodium 134 L (136-145) mmol/L POC Potassium (3.3-5.0) mmol/L Potassium (3.5-5.1) mmol/L POC Chloride (101-112) mmol/L Chloride (98-107) mmol/L POC Total CO2 (24-31) mmol/L Anion Gap (3-11) POC BUN (7-18) mg/dl BUN 48 H (6-23) mg/dl Creatinine 2.19 H D (0.6-1.4) mg/dl POC Creatinine (0.6-1.3) mg/dl BUN/Creatinine Ratio 21.9 H (10-20) Glucose 182 H (70-99(Fasting)) mg/dl POC Glucose 190 H (70-99) mg/dl POC Glucose (other) (70-99) mg/dl Calcium 8.1 L (8.6-10.3) mg/dl Total Bilirubin (0.2-1.0) mg/dl Direct Bilirubin (0-0.2) mg/dl Troponin I High Sens (0-20) pg/ml Albumin (3.4-5.0) gm/dl Procalcitonin (0-0.5) ng/ml Urine Appearance Cloudy A (Clear) Urine Protein Trace H (Negative) U Hyaline Cast (Auto) 11-20 H (0-2) /lpf Hyaline Casts Present A (None Presnt) /lpf Urine Osmolality 429 L (500-800) mOsm/kg 10/20/25 Range/Units 07:57 WBC (4.8-10.8) K/ul RBC (4.70-6.10) M/uL Hgb (14.0-18.0) g/dl POC Hgb (14.0-18.0) g/dl Hct (42.0-52.0) % POC Hct (42-52) % RDW Std Deviation (36.4-46.3) fL RDW Coeff of Miquel (11.5-14.5) % Neut # (Auto) (1.40-6.50) K/uL Lymph # (Auto) (1.20-3.40) K/uL [place] # (Auto) (0.11-0.59) K/uL Immature Gran # (Auto) (0.01-0.20) K/uL VBG pH (7.36-7.41) POC Sodium (135-144) mmol/L Sodium (136-145) mmol/L POC Potassium (3.3-5.0) mmol/L Potassium (3.5-5.1) mmol/L POC Chloride (101-112) mmol/L Chloride (98-107) mmol/L POC Total CO2 (24-31) mmol/L Anion Gap (3-11) POC BUN (7-18) mg/dl BUN (6-23) mg/dl Creatinine (0.6-1.4) mg/dl POC Creatinine (0.6-1.3) mg/dl BUN/Creatinine Ratio (10-20) Glucose (70-99(Fasting)) mg/dl POC Glucose 185 H (70-99) mg/dl POC Glucose (other) (70-99) mg/dl Calcium (8.6-10.3) mg/dl Total Bilirubin (0.2-1.0) mg/dl Direct Bilirubin (0-0.2) mg/dl Troponin I High Sens (0-20) pg/ml Albumin (3.4-5.0) gm/dl Procalcitonin (0-0.5) ng/ml Urine Appearance (Clear) Urine Protein (Negative) U Hyaline Cast (Auto) (0-2) /lpf Hyaline Casts (None Presnt) /lpf Urine Osmolality (500-800) mOsm/kg
[2025-03-21] MEDS ORDERED: PIPERACILLIN/TAZOBACTAM 4.5 GM/100 ML BAG IV SCH (10:00)
[2025-03-21] MEDS: cefTRIAXone SODIUM 2,000 MG/50 ML BAG IV ONE (10:40)
[2025-03-21 19:54] LABS: Adenovirus F 40/41 PCR Not Detected (NotDetected); Campylobacter PCR Not Detected (NotDetected); Enteroaggregative E.coli(EAEC) Not Detected (NotDetected); Shiga-like Toxin E.coli (STEC) Not Detected (NotDetected); Vibrio species PCR Not Detected (NotDetected)
[2025-03-21 19:55] LABS: Cdiff Toxin B Gene (2yr or >) Positive Cdiff Gene (Neg)
[2025-03-21 19:59] LABS: Cdiff Toxin A+B Negative Cdiff Toxin (Negative)
[2025-03-21] MEDS: metroNIDAZOLE 500 MG TAB PO SCH (20:45)
[2025-03-21] MEDS: METOPROLOL TARTRATE 25 MG TAB PO SCH (22:07)
[2025-03-22 06:44] LABS: Hematocrit (blood only) 29.4 % (42.0-52.0); Hemoglobin 10.0 g/dl (14.0-18.0); Mean Corpuscular Hemoglobin 30.2 pg (25.0-34.0); Mean Corpuscular Volume 88.8 fL (80.0-100.0); Platelet Count 213 K/uL (130-400); RDW Standard Deviation 49.1 fL (36.4-46.3); Red Blood Count 3.31 M/uL (4.70-6.10); White Blood Count 9.05 K/ul (4.8-10.8)
[2025-03-22 07:10] LABS: Anion Gap 8.0 (3-11); Blood Urea Nitrogen 33.0 mg/dl (6-23); Calcium 8.1 mg/dl (8.6-10.3); Carbon Dioxide 20.0 mmol/L (21-32); Chloride 109.0 mmol/L (98-107); Creatinine Clr Calc Pharmacy 33.7 ml/min; Glucose 133.0 mg/dl (70-99(Fasting)); Potassium 4.1 mmol/L (3.5-5.1); Sodium 137.0 mmol/L (136-145)
[2025-03-22] MEDS: cefTRIAXone SODIUM 2,000 MG/50 ML BAG IV SCH (08:49)
--- NOTE | 2025-03-22 12:32 | Hospitalist Progress Note ---
Date of Service March 22, 2025 Assessment & Plan (1) Hypotension: (2) Sigmoid diverticulitis: (3) Acute kidney injury: (4) Obstructive uropathy: Plan 84M with PMH AD status post CABG, PAF not on anticoagulation secondary to recurrent GI bleed, mild , hypertension, hyperlipidemia, urolithiasis, prostate cancer status post radiation on Lupron, history radiation proctitis, recurrent UTIs, bladder outlet obstruction/urethral stricture as per records, diverticulosis, colonic angiectasia status post APC, CKD3 , chronic anemia (baseline hemoglobin of 11-12), DM2 diet-controlled, history of PMR, psoriasis, past tobacco abuse presents with fever, hypotension, LLQ pain #Acute Diverticulitis -Also with early sepsis on admission-now resolved -Sepsis due to fever, leukocytosis, hypotension, tachycardia -Lactate WNL -CT AP showing uncomplicated diverticulitis and B/l hydronephrosis -No history of PSA -Blood cultures NGTD Plan -Continue CTX and flagyl -Follow blood cultures -Follow temp, BP, WBC -OP colonoscopy in 4-6 weeks #Diarrhea -Multiple brown loose bowel movements per day -C. diff gene +, but toxin negative, indicating colonization but unlikely to be acute c. diff colitis -Given diverticulitis and improving bowel function, diarrhea likely from diverticulitis Plan -Continue abx regimen as above -Should his diarrhea fail to resolve in the next 1-2 days, could then consider c. diff #B/l Hydronephrosis -Secondary to bladder obstruction due to prostate CA and urethral stricture -Urology consulted -No crandall at home Plan -Continue Crandall -OP Voiding trial -Monitor urine output, renal function #MERNA on CKD3 -Secondary to obstruction -Cr improving with crandall placement Plan -Continue with crandall -Daily BMP -Avoid nephrotoxic agents if possible #pAF -Not on AC due to history of bleeding -Currently in NSR -Home Toprol on hold due to sepsis, resume if BP allows #Anemia -Chronic at baseline -No s/s acute blood loss -F/u PCP as OP #Acute hyponatremia -Low suspicion for adrenal insufficiency -Mild asymptomatic improving #History of CAD -S/p CABG -No chest pain #Non specific trop elevation -In setting of MERNA/CKD -Low suspicion for NSTEMI or ACS #Prostate CA -OP f/u urology I spent a total of 57 minutes coordinating, documenting, and providing care for this patient excluding time spent in the performance of separately billed services. This included personally reviewing all current laboratories and imaging studies, medical reconciliation, outpatient chart review and discussion with specialists Admission and Anticipated Discharge Date Admission Date: March 20, 2025 Subjective Feeling very well this AM. still with some LLQ pain, mild. three loose bm yesterday Physical Exam Physical Exam: Vitals and labs reviewed General: Well appearing, NAD HEENT: EOMI, PERRLA Neck: Supple Cardiac: RRR systolic murmur Lungs: CTA no rhonchi wheezing or rales Abd: S NT ND BS positive : Crandall MSK: Full ROM. No obvious deformities Ext: No Edema cyanosis Skin: Warm, Dry Neuro: AOx3 No focal deficits. Psych: Normal Mood Results & Data Results & Data Vital Signs (Past 12 Hours) Vital Signs Temp Pulse Pulse Resp BP Pulse Ox O2 Del Method 03/22/25 11:21 36.7 C 77 20 102/66 98 Room Air 03/22/25 08:30 36.9 C 79 20 153/76 H 97 Room Air 03/22/25 08:00 79 03/22/25 03:21 36.3 C L 79 16 130/81 96 Room Air
[2025-03-22 15:08] VITALS: RESP 18
--- NOTE | 2025-03-23 05:45 | Electrocardiogram Report ---
Test Reason : Blood Pressure : */* mmHG Vent. Rate : 103 BPM Atrial Rate : 103 BPM P-R Int : 156 ms QRS Dur : 164 ms QT Int : 418 ms P-R-T Axes : 0 -70 46 degrees QTcB Int : 547 ms Sinus tachycardia Left axis deviation Right bundle branch block Abnormal ECG When compared with ECG of 06-Mar-2025 15:54, No significant change was found Confirmed by Robinson Valencia ([id number] on 03/23/2025 5:44:55 AM Referred By: REFERRED SELF Confirmed By: Robinson Valencia
[2025-03-23 06:41] LABS: Hematocrit (blood only) 33.5 % (42.0-52.0); Hemoglobin 10.9 g/dl (14.0-18.0); Mean Corpuscular Hemoglobin 29.4 pg (25.0-34.0); Mean Corpuscular Volume 90.3 fL (80.0-100.0); Platelet Count 244 K/uL (130-400); RDW Standard Deviation 50.4 fL (36.4-46.3); Red Blood Count 3.71 M/uL (4.70-6.10); White Blood Count 8.29 K/ul (4.8-10.8)
[2025-03-23 06:58] LABS: Anion Gap 10.0 (3-11); Blood Urea Nitrogen 25.0 mg/dl (6-23); Calcium 8.4 mg/dl (8.6-10.3); Carbon Dioxide 20.0 mmol/L (21-32); Chloride 108.0 mmol/L (98-107); Creatinine Clr Calc Pharmacy 35.6 ml/min; Glucose 111.0 mg/dl (70-99(Fasting)); Potassium 3.9 mmol/L (3.5-5.1); Sodium 138.0 mmol/L (136-145)
[2025-03-23] MEDS ORDERED: CHERRY SYRUP 5 ML UDP PO STA (07:27)
[2025-03-23] MEDS: VANCOMYCIN HCL 125 MG CAP PO SCH (09:11)
[2025-03-23 12:27] VITALS: BP 127/79; PULSE 84; TEMP 97.9; O2SAT 97
--- NOTE | 2025-03-23 12:40 | Discharge Summary ---
Date of Service March 23, 2025 Admission HPI Per Admitting Provider History obtained from patient, family, and records. Medical history significant for CAD status post CABG, PAF not on anticoagulation secondary to recurrent GI bleed, mild , hypertension, hyperlipidemia, urolithiasis, prostate cancer status post radiation on Lupron, history radiation proctitis, recurrent UTIs, bladder outlet obstruction/urethral stricture as per records, diverticulosis, colonic angiectasia status post APC, CRI (baseline creatinine 1.6), chronic anemia (baseline hemoglobin of 11-12), DM2 diet- controlled, history of PMR, psoriasis, past tobacco abuse. Last confinement October 2021 for severe sepsis secondary to anaplasmosis. Patient seen at [facility] ER 2 weeks ago for dysuria symptoms. Symptoms improved after outpatient cefdinir course. Urine CS eventually turned out negative At about the same time, patient experienced psoriasis flare unresponsive to topical steroid Rx. Lesions improved after oral steroid course prescribed by urgent care last week. 3 days ago, patient started not feeling well, achy left-sided lower abdominal pain with poor appetite. Some nausea symptoms associated with fever chills. Watery stools 1 episode. Patient denies chest pain, SOB, cough symptoms. SBP 90s upon arrival at the ER. IV Zosyn administered at the ER. Medical History as above 2019 colonoscopy showed diverticulosis, colonic angiectasia, internal hemorrhoids Surgical History : CABG, urologic procedures, nasal septoplasty Family History : DM, stroke, breast cancer, bronchial asthma Personal/Social history : Past tobacco abuse, occasional EtOH intake, retired [employer] work Admission Exam Per Admitting Provider GENERAL: Comfortable, pleasant, no respiratory distress SKIN: Pallor, warm HEENT: Pale palpebral conjunctivae, no ptosis, dry buccal mucosa NECK : Supple, no tenderness CHEST : Decreased breath sounds, no tenderness HEART : RRR, systolic murmur ABDOMEN: Some distention, left-sided abdominal tenderness EXTREMITIES : No LE swelling/tenderness, palpable pulses, no other conspicuous deformities noted NEUROLOGIC : Coherent, no facial asymmetry, no other gross focality Principal Diagnosis Acute diverticulitis Acute urinary retention status post Chowdary catheter placement Discharge Exam Constitutional: WD/WN, vitals as above, NAD, sitting up in bed, pleasant, conversing easily Respiratory: normal respiratory effort, lungs clear to auscultation, no wheeze, rales, rhonchi. Normal insp/exp effort, no accessory muscle use Cardiovascular: RRR, no murmur, no edema Vessels: no JVD or carotid bruit Chest: normal inspection of chest Abdomen: normal bowel sounds, soft, nontender, no hepatosplenomegaly Musculoskeletal: no cyanosis or clubbing, extremities motor strength 5/5 Skin: no rashes, warm and dry normal turgor Neurologic: PERRL, EOMI, accommodation nl, no face palsy, no dysarthria CN's II- XI intact bilaterally and moves all extremities Psychiatric: A+Ox3, euthymic affect Discharge Data Allergies Allergy/AdvReac Type Severity Reaction Status Date / Time sulfamethoxazole AdvReac Intermediate Hypotension Unverified 03/20/25 20:13 [From Bactrim] trimethoprim [From Bactrim] AdvReac Intermediate Hypotension Unverified 03/20/25 20:13 meperidine AdvReac Mild PASS OUT Verified 01/11/24 08:44 Consultations 03/20/25 19:12 ED Decision to Admit Stat 03/20/25 22:00 Consult Urology Routine Ordered Studies 03/20/25 18:15 CT abd pelvis wo con Stat Hospital Course (1) Hypotension: (2) Sigmoid diverticulitis: (3) Acute kidney injury: (4) Obstructive uropathy: Plan 84M with PMH AD status post CABG, PAF not on anticoagulation secondary to recurrent GI bleed, mild , hypertension, hyperlipidemia, urolithiasis, prostate cancer status post radiation on Lupron, history radiation proctitis, recurrent UTIs, bladder outlet obstruction/urethral stricture as per records, diverticulosis, colonic angiectasia status post APC, CKD3 , chronic anemia (baseline hemoglobin of 11-12), DM2 diet-controlled, history of PMR, psoriasis, past tobacco abuse presents with fever, hypotension, LLQ pain #Acute Diverticulitis -Also with early sepsis on admission-now resolved -Sepsis due to fever, leukocytosis, hypotension, tachycardia -Lactate WNL -CT AP showing uncomplicated diverticulitis and B/l hydronephrosis -No history of PSA -Blood cultures NGTD Patient was admitted to medical floor; was started on IV antibiotic, bowel rest with improvement in abdominal pain or discomfort. He was able to tolerate regular diet without any issues at the time of the discharge. He was afebrile. Patient was discharged on oral antibiotic for 5 more days. Patient to follow-up with PCP. Patient will need colonoscopy in 6 to 8 weeks. #Diarrhea -Multiple brown loose bowel movements per day -C. diff gene +, but toxin negative, indicating colonization but unlikely to be acute c. diff colitis -Given diverticulitis and improving bowel function, diarrhea likely from diverticulitis Placed on prophylactic oral Vanco for 1 week while he is on antibiotic at the time of discharge. Bladder outlet Obstruction - MERNA Patient was found to have bilateral hydronephrosis with distended urinary bladder on the CT abdomen/pelvis. Chowdary catheter was placed with improvement in MERNA. Patient to follow-up with urology for trial of void as outpatient. Please note the above document was generated using voice recognition software. It may contain grammatical, syntax or spelling errors. Any formal questions or concerns about the content, text or information contained within the body of this dictation should be directly addressed to the provider for clarification Total Time Total Time Spent Total Time Spent (In Minutes): 45 Total Time Includes: Examination of the Patient, Discharge Planning, Medication Reconciliation, Communication With Other Providers and Other Discharge Plan Discharge Items Patient Disposition: Home - Self-Care Reason For Visit: HYPOTENSION Discharge Diagnosis: #Acute Diverticulitis # Acute Urinary Retention Condition on Discharge: Fair Activity: Resume your previous activity Non-emergency contact: Primary Care Provider Call non-emergency contact if: you have any medication questions and your symptoms worsen Follow-up/Referrals: Bhaskar Day DO [Primary Care Provider] - 03/30/25 1:40 pm (Date & Time 03/30/2025 1:40 PM Provider: Bhaskar Day DO [facility] ) Diet: Low Fiber Addtl Attending Provider Instructions: We discussed you were admitted to the hospital due to diverticulitis. You are treated with antibiotic during the hospitalization. You are prescribed Augmentin to be taken twice a day for 5 more days to complete the antibiotic course. Please follow the low fiber diet as instructed. You have been also prescribed vancomycin 125 mg to be taken once a day for C. difficile prophylaxis. Please follow-up with your urologist regarding removal of the urinary catheter and trial of void. Pending Studies at Discharge: No Stand-Alone Forms: My [facility], Smoking Cessation Medications and DC Order Prescriptions: New vancomycin 125 mg Capsule 125 mg PO DAILY Qty: 7 0RF amoxicillin-pot clavulanate 875-125 mg tablet 1 tab PO BID 5 Days Qty: 10 0RF Continued clobetasol 0.05 % cream 1 appln TOP BID PRN (Reason: itchy) docusate sodium [Colace] 100 mg capsule 100 mg PO DAILY PRN (Reason: Constipation) bimatoprost [Lumigan] 0.01 % drops 1 drops OPB QPM nitroglycerin 0.4 mg tablet, sublingual 0.4 mg SL Q5M PRN (Reason: Chest Pain) atorvastatin 40 mg tablet 40 mg PO PM acetaminophen [Tylenol Extra Strength] 500 mg Tablet 1,000 mg PO Q6H PRN (Reason: Pain) metoprolol tartrate 25 mg tablet 25 mg PO QPM cholecalciferol (vitamin D3) [Vitamin D3] 50 mcg (2,000 unit) Capsule 50 mcg PO QAM Lupron Depot (4 month) 30 mg Syringe Kit 30 mg IM UD Qty: 0 Patient Comments: 03/20- pt states he last received his shot in august Rx Instructions: q 4 months betamethasone dipropionate 0.05 % ointment 1 applic TOPICAL DAILY PRN (Reason: Itching) silodosin 8 mg capsule 8 mg PO DAILY amiodarone 200 mg tablet 200 mg PO DAILY Discharge Orders: Discharge Order (Routine); Ordered 03/23/25 Ordered By: Vijay Iqbal Admission Data Admit Date/Time: 03/20/25 19:48 Attending Provider: Vjiay Iqbal Admit Provider: Lex Aguilar Primary Care Provider: Bhaskar Day Other Providers: Lex Aguilar; Kenneth Ponce; Essence Pritchett; David Lee; Hermelinda Vee; Kala Kelly; Jose Mattson; Ciara De La Torre; Soy Mayes; Dee Parra; Greg Ramirez; Rolf Carver Other Interventions: Discharge Summary Assessment (RN) Last Done: 03/23/25 13:09
== END 2025-03-23 14:39 | disposition home or self-care (01) | DRG 872 ==
LOC: ED 17:24 → 4W 19:48 → SUATTDRO 19:48 → 4W 21:58